=== PATIENT | female | born 1940 | race Caucasian/White ===

== ENCOUNTER 2020-06-30 11:43 | Outpatient (CLI) | payer MEDICARE, SELFPAY ==
--- NOTE | ~2020-06-30 | MM_ITS ---
EXAMINATION: MM screening raciel BI w daniel HISTORY: Screening mammogram, family history of breast cancer in her sister. TECHNIQUE: Craniocaudal and mediolateral oblique 3-D tomosynthesis images were obtained and synthetic 2-D images were generated. CAD analysis was submitted and interpreted. COMPARISON: 12/23/2018, 10/25/2017, 09/14/2016 BREAST PARENCHYMAL COMPOSITION: There are scattered areas of fibroglandular density. FINDINGS: There is no evidence of suspicious mass, calcification, or architectural distortion to sugg est malignancy in either breast. There has been no suspicious interval change. IMPRESSION: 1. No mammographic evidence of malignancy. 2. Recommend routine screening mammography while the patient remains in good health. BI-RADS Category 1: Negative Reviewed, dictated and finalized at location A. 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 No mammographic evidence of malignancy. 2. Recommend routine screening mammography while the patient remains in good he alth. BI-RADS Category 1: Negative
== END 2020-06-30 11:44 | disposition home or self-care (01) ==
LOC: ANHIMG 11:47
PROVIDERS: PCP Family Medicine Adolescent Medicine; Visit Provider Family Medicine Adolescent Medicine
DX: Z12.31 Encounter for screening mammogram for malignant neoplasm of breast (principal)
CPT/HCPCS: 77063; 77067

== ENCOUNTER → 2020-07-20 14:41 | Outpatient (CLI) | payer MEDICARE, SELFPAY ==
--- NOTE | ~2020-07-20 | XR_ITS ---
EXAMINATION: XR chest 2V DATE: 07/20/2020 15:00 INDICATION: Diaphoresis. TECHNIQUE: Frontal and lateral views of the chest were obtained. COMPARISON: None. FINDINGS: The chest demonstrates clear lungs without pneumonia, pleural effusion, or pneumothorax. Th e heart size is normal. There are surgical clips in the abdomen. IMPRESSION: 1. No acute cardiopulmonary disease. Reviewed, dictated and finalized at location B. 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
== END ==
PROVIDERS: PCP Family Medicine Adolescent Medicine; Visit Provider Physician Assistant
DX: R61 Generalized hyperhidrosis (principal)
CPT/HCPCS: 71046

== ENCOUNTER 2021-05-07 10:23 | Emergency (ER) | payer MEDICARE, SELFPAY ==
--- NOTE | ~2021-05-07 | US_ITS ---
EXAMINATION: US venous doppler [facility] DATE: 05/07/2021 13:59 INDICATION: Left lower limb pain TECHNIQUE: Grayscale ultrasound images without and with compression and Doppler ultrasound images of the left lower extremity veins were obtained. COMPARISON: None. FINDINGS: The visualized portions of left common femoral vein, profunda (deep) femoral vein, femoral vein, popl iteal vein, peroneal veins, posterior tibial veins, gastrocnemius vein and greater saphenous vein out flow are patent. IMPRESSION: 1. No deep venous thrombosis in the left lower limb. Reviewed, dictated and finalized at location A. 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
[2021-05-07 10:38] VITALS: BP 146/65; PULSE 77; RESP 16; TEMP 36.7; O2SAT 99
--- NOTE | 2021-05-07 13:48 | ED.GENADULT ---
HPI - General Adult General Chief complaint: Extremity Injury, Lower Stated complaint: leg pain Time Seen by Provider: 05/07/21 12:48 Source: patient and family Mode of arrival: ambulatory Limitations: no limitations History of Present Illness HPI narrative: Patient presents for evaluation of pressure in the left lower extremity. She is here in the company of her son and they provide me with conflicting statements regarding presenting complaint. Multiple attempts for clarification were made during the course of my evaluation. The seem to agree the patient has had pressure in the left lateral and posterior aspect of left calf since Saturday of last week. She indicates she lives here with her son and her recently . They went to [place] on Saturday of last week. She spent a considerable amount of time in the car prior to time of symptom onset. She states she has some chronic pain in the posterior left knee for a few years. She thought this was 2/2 Renteria's cyst but was told this was not the case. She has tried taking baclofen for her symptoms. It seemed to help last night. She had recurrence of her symptoms this morning so came in for further evaluation. She has noted intermittent swelling for quite some time in left lower leg. No hx of VTE. She does not smoke. No recent surgeries. No chest pain or SOB. Related Data Allergies Allergy/AdvReac Type Severity Reaction Status Date / Time clavulanic acid Allergy Mild Hives Unverified 05/07/21 12:48 Penicillins Allergy Mild Hives Unverified 05/07/21 12:48 amoxicillin Allergy Unknown Hives Verified 05/07/21 12:48 BETALACTAMASEIN Allergy Mild Hives Uncoded 05/07/21 12:48 CLAVULANATEPOT Allergy Mild Hives Uncoded 05/07/21 12:48 POTASSIUM CLAVULANATE Allergy Mild HIVES Uncoded 05/07/21 12:48 Review of Systems Review of Systems: CONSTITUTIONAL: Denies fever, chills, or sweats. EYES: Denies visual changes, redness, or discharge. ENT: Denies rhinorrhea, congestion, sore throat, or otalgia. CARDIOVASCULAR: Denies chest pain, palpitations, or edema. RESPIRATORY: Denies cough or dyspnea. GASTROINTESTINAL: Denies abdominal pain, nausea, vomiting, or diarrhea. GENITOURINARY: Denies dysuria or hematuria. SKIN: Denies rash or itching. MUSCULOSKELETAL: Reports pressure in left lower leg. Reports intermittent swelling in left lower leg NEUROLOGIC: Denies headache, numbness, dizziness, or weakness. PSYCHIATRIC: Denies anxiety or depression. [facility] Past Medical History Medical History Hypertension Hypothyroidism Family History Family History Sibling Carcinoma of colon, Onset Age: 82 Family history of malignant neoplasm of breast in first degree relative, Onset Age: 82 Patient's sister is Father Family history of lung cancer, Onset Age: 62 Patient's father is Mother Family history of coronary artery disease, Onset Age: 87 Patient's mother is Family history of gastrointestinal disorder Other Hypertension Social History Social History (Updated 05/07/21 @ 14:02 by YOSHI Mims, ) Smoking status: Never smoker Alcohol intake: current Substance use: never Living arrangements: with family Gender identity (if verbalized by the patient): Female Sexual Orientation (if Verbalized by the Patient): Straight or Heterosexual Spiritual care concerns: No Exam Narrative: GENERAL: Well-appearing, well-nourished, and in no acute distress. HEAD: Normocephalic, atraumatic. EYES: PERRLA and EOMI. ENT: Nares clear, no rhinorrhea or epistaxis. Mucous membranes moist. Oropharynx without tonsillar hypertrophy exudate or other lesions. Bilateral TMs pearly laureano nonbulging NECK: Supple. No adenopathy or masses. No carotid bruits or JVD CHEST: Clear to auscultation. No respiratory distres
[2021-05-07 14:32] LABS: Basophils Absolute Auto 0.1 K/mm3 (0.0-0.1); Basophils Percent Auto 0.6 % (0.2-1.2); Eosinophils Absolute Auto 0.2 K/mm3 (0-0.3); Eosinophils Percent Auto 2.6 % (0-4.4); Hematocrit 36.9 % (37.0-47.0); Hemoglobin 12.1 g/dL (12.0-15.0); Immature Granulocyte Absolute 0.06 K/mm3 (0.00-0.031); Immature Granulocyte Percent A 0.6 % (0-0.5); Lymphocytes Absolute Auto 2.16 K/mm3 (0.9-3.2); Lymphocytes Percent Auto 23.2 % (18.3-44.2); Mean Corpuscular HGB Conc 32.8 g/dl (32-36); Mean Corpuscular Hemoglobin 29.7 pg (26-34); Mean Corpuscular Volume 90.4 fl (80-100); Mean Platelet Volume 10.8 fl (7.4-10.4); Monocytes Absolute Auto 0.9 K/mm3 (0.1-0.6); Monocytes Percent Auto 9.2 % (2.6-8.5); Neutrophils Percent Auto 63.8 % (45.5-73.1); Platelet Count Result 188 k/mm3 (150-375); Red Blood Count 4.08 M/mm3 (4.2-5.4); White Blood Count 9.3 K/mm3 (4.5-10.0)
[2021-05-07 14:42] LABS: Alanine Aminotransferase 16 U/L (4-35); Albumin Level 3.8 g/dL (3.5-5.1); Alkaline Phosphatase 58 U/L (38-126); Anion Gap 8 mmol/L (8-16); Aspartate Amino Transferase 21 U/L (14-36); Bilirubin,Total 0.2 mg/dL (0.2-1.3); Blood Urea Nitrogen 20 mg/dL (7-17); Calcium 8.7 mg/dL (8.4-10.2); Carbon Dioxide 28 mmol/L (22-30); Chloride 105 mmol/L (98-107); Creatine Kinase 119 U/L (30-135); Estimated CRCL calculation 54 ml/min; Estimated Glomerular Filt Rate > 60; Glucose 102 mg/dL (65-110); Magnesium 1.8 mg/dL (1.6-2.3); Potassium 3.6 mmol/L (3.4-5.0); Sodium 141 mmol/L (137-145)
[2021-05-07 14:45] LABS: INR 1.1; Prothrombin Time 13.6 Seconds (11.1-14.7)
[2021-05-07 14:47] LABS: Partial Thromboplastin Time 26.1 SECONDS (22.3-36.8)
== END 2021-05-07 15:30 | disposition home or self-care (01) ==
PROVIDERS: Emergency Provider Nurse Practitioner; PCP Family Medicine Adolescent Medicine
DX: M62.838 Other muscle spasm (principal); I10 Essential (primary) hypertension; E03.9 Hypothyroidism, unspecified
CPT/HCPCS: 36415; 80053; 82550; 83735; 85025; 85610; 85730; 93971; 99284

== ENCOUNTER 2021-09-20 14:19 | Outpatient (CLI) | payer MEDICARE, SELFPAY ==
--- NOTE | ~2021-09-20 | MM_ITS ---
EXAMINATION: MM screening raciel BI w daniel HISTORY: Screening mammogram TECHNIQUE: Craniocaudal and mediolateral oblique 3-D tomosynthesis images were obtained and synthetic 2-D images were generated. CAD analysis was submitted and interpreted. COMPARISON: 06/30/2020, 12/23/2018, 10/25/2017 bilateral screening mammogram examinations. BREAST PARENCHYMAL COMPOSITION: There are scattered areas of fibroglandular density. FINDINGS: There is no evidence of suspicious mass, calcification, or architectural distortion to sugg est malignancy in either breast. There has been no suspicious interval change. IMPRESSION: 1. No mammographic evidence of malignancy. 2. Recommend routine screening mammography in one year. BI-RADS Category 1: Negative Reviewed, dictated and finalized at location A.
== END 2021-09-20 14:20 | disposition home or self-care (01) ==
PROVIDERS: PCP Family Medicine Adolescent Medicine; Visit Provider Family Medicine Adolescent Medicine
DX: Z12.31 Encounter for screening mammogram for malignant neoplasm of breast (principal)
CPT/HCPCS: 77063; 77067

== ENCOUNTER → 2021-09-21 15:59 | Outpatient (CLI) | payer MEDICARE, SELFPAY ==
--- NOTE | ~2021-09-21 | XR_ITS ---
XR knee LT 3V DATE: 09/21/2021 16:20 INDICATION: Left knee pain TECHNIQUE: Continental and standing AP and lateral views COMPARISON: left knee FINDINGS: There is varus deformity. There is virtual obliteration of medial compartment joint space w ith some eburnation at the apposing medial femoral condyle and medial tibial plateau, in addition to some periarticular spurring. There is periarticular spurring of the patellofemoral joint. There is moderate suprapatellar knee joint effusion. There is enthesopathy at the superior pole of the patella at the quadriceps tendon insertion. No chondrocalcinosis. No radiopaque intra-articular loose body is evident. No fracture, dislocation, periosteal reaction or bone destruction. Osteopenia. Femoral and popliteal artery calcifications. 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
== END ==
PROVIDERS: PCP Family Medicine Adolescent Medicine; Visit Provider Physician Assistant
DX: M17.12 Unilateral primary osteoarthritis, left knee (principal); M25.462 Effusion, left knee; M85.862 Other specified disorders of bone density and structure, left lower leg
CPT/HCPCS: 73562

== ENCOUNTER 2022-03-27 12:30 | Outpatient (RCR) | payer MEDICARE, SELFPAY ==
--- NOTE | 2022-03-01 10:50 | PTOPEVAL1 ---
Evaluation Information Assessment Status Evaluation Diagnosis L TKR Onset 02/07/22 Reported Pain Level Pain Score 0: Self Report Assessment PT Clinical Summary Pt presents s/p L TKR 02/07/22. Pt daughter present for evaluation. Evaluation shows reduced AROM and PROM within appropriate limits for this phase of rehabilitation post procedure. Demo's good quad contraction, however has extensor lag with SLR flexion. Mild swelling noted L>R, gait abnormality w/ pt cont to use RW for long distances and SPC in home. Pt would greatly benefit from physical therapy to address deficits and improve functional independence to meet goals and return to PLOF. Plan of Care Interventions Electrical Stimulation,Hot Pack/Cold Pack,Manual Therapy, AROM, AAROM, PROM, Massage, strengthening, gait and balance training PT Services Indicated Yes Treatment Frequency and 2x /wk x 6 wks Duration These treatments will address the objective and functional deficits as defined above. The patient will be advanced safely and appropriately in order for the patient to progress towards his/her prior level of function. Additional exercises will be introduced and as well as a comprehensive home exercise program upon discharge, if needed, ?to ensure carryover of functional gains achieved in the clinic. This treatment plan has been reviewed and agreement upon by the patient.
--- NOTE | 2022-05-22 11:06 | PCPTNOTE ---
PHYSICAL THERAPY DISCHARGE 05-22-22 Attending Provider: Paul Benson MD Patient:Radha Portillo Date of :1940 Mrs. Portillo has not returned for any further treatments since 03/27/2022, therefore she will be discharged at this time. She received 7 PT sessions from Mar 01 to , for the diagnosis of TKR. She then stopped attending therapy. The goals were not addressed. Thank you for referring this patient to [facility].
== END 2022-05-22 14:10 | disposition home or self-care (01) ==
LOC: ANHPT 12:30
PROVIDERS: PCP Family Medicine Adolescent Medicine
DX: M25.562 Pain in left knee (principal)
CPT/HCPCS: 97014; 97110; 97140; 97161; G0283

== ENCOUNTER 2022-11-28 16:04 | Outpatient (CLI) | payer MEDICARE, SELFPAY ==
--- NOTE | ~2022-11-28 | MM_ITS ---
EXAMINATION: MM screening raciel BI w daniel HISTORY: Screening mammogram TECHNIQUE: Craniocaudal and mediolateral oblique 3-D tomosynthesis images were obtained and synthetic 2-D images were generated. CAD analysis was submitted and interpreted. COMPARISON: 09/20/2021, 06/30/2020, 12/23/2018 bilateral screening mammogram examinations BREAST PARENCHYMAL COMPOSITION: There are scattered areas of fibroglandular density. FINDINGS: There is no evidence of suspicious mass, calcification, or architectural distortion to sugg est malignancy in either breast. There has been no suspicious interval change. IMPRESSION: 1. No mammographic evidence of malignancy. 2. Recommend routine screening mammography in one year. BI-RADS Category 1: Negative Reviewed, dictated and finalized at location A.
== END 2022-11-28 16:05 | disposition home or self-care (01) ==
LOC: ANHIMG 16:06
PROVIDERS: PCP Family Medicine Adolescent Medicine; Visit Provider Family Medicine Adolescent Medicine
DX: Z12.31 Encounter for screening mammogram for malignant neoplasm of breast (principal)
CPT/HCPCS: 77063; 77067

== ENCOUNTER 2023-01-02 09:20 | Outpatient (CLI) | payer MEDICARE, SELFPAY ==
--- NOTE | 2023-01-24 18:07 | WPDSLEEPSTUD ---
Sleep Study Date of Study: 01/02/23 Ordering Provider: Laura Malik, BIOINFORMATICS PROGRAMMER Interpreting Physician: Rita Jauregui MD Sleep Study Type: Polysomnogram Height: 1.68 m Weight: 90.718 kg Body Mass Index: 32.3 Neck Circumference (inches): 13 [place]: 2 Reason for Sleep Study Fatigue, history of MARIA ESTHER intolerant to CPAP years ago, now with labile hypetension, increased fatigue and dyspnea on exertion * 11/22/2010 - split night sleep study, AHI 17.6 treated with CPAP 7 cm water pressure Sleep History Radha Portillo is an 82-year-old female with history of hypertension who was diagnosed with obstructive sleep apnea and wore a CPAP machine for a short period of time years ago, who presents for a sleep study for re-evaluation 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 She occasionally awakens from sleep short of breath. She rarely awakens at night with heartburn, belching or cough. She occasionally snores. She occasionally snores loudly enough that others complain. She occasionally has trouble sleeping when she has a cold. She rarely suddenly wakes up gasping for breath during the night. She frequently has breathing problems at night. She rarely sweats excessively at night. She occasionally notices her heart pounding or beating irregularly during the night. She frequently falls asleep during the day. She never falls asleep while driving. She never experiences loss of muscle tone with strong emotion. She never feels paralyzed on waking or falling asleep. She never experiences vivid dreams upon waking or falling asleep. She does not feel afraid of going to sleep. She occasionally has nightmares. She rarely recalls her dreams. She frequently has thoughts racing through her mind. She occasionally feels sad or depressed. She occasionally feels anxiety or worry about things. She occasionally notices parts of her body jerk. She never kicks during the night. She occasionally feels crawling or aching feelings in her legs. She never feels leg pain at night. She never grinds her teeth during sleep or has morning jaw pain. She occasionally feels bothered by pain during the day and never awakened by pain during the night. She never wakes up feeling stiff in the morning. Frequently wakes up feeling sore and achy in the morning and occasionally with pain in her neck, spine, or joints. Normal bedtime is around midnight on the weekdays and same on the weekends, taking 1-1.5 hours to fall asleep. She typically gets about 3 to 4 hours of sleep per night. Her wake up time is between 5am to 8am on the weekdays and same on the weekends. She typically wakes up around 1 to 3 times per night, awake 1 to 2 hours each during which time she will play a [employer] game and pray. Habits: Never tobacco smoker. Drinks about 2 caffeinated beverages per day. No alcohol or recreational substances. [facility] Past Medical History Medical History Benign hypertension with CKD (chronic kidney disease) stage III Generalized anxiety disorder Glaucoma Hypertension Hypertriglyceridemia Hypothyroidism Idiopathic peripheral neuropathy Obstructive sleep apnea Prediabetes Stage 3a chronic kidney disease (CKD) Surgical History Surgical History History of cholecystectomy History of hysterectomy Family History Family History Sibling Carcinoma of colon, Onset Age: 82 Family history of malignant neoplasm of breast in first degree relative, Onset Age: 82 Patient's sister is Father Family history of lung cancer, Onset Age: 62 Patient's father is Mother Family history of coronary artery disease, Onset Age: 87 Patient's mother is Family history of gastrointestinal disorder Other Hypertension Social History Socia
[2023-01-24 18:13] VITALS: BMI 32.3
== END 2023-01-03 07:46 | disposition home or self-care (01) ==
LOC: ANHCSM 09:20
PROVIDERS: PCP Family Medicine Adolescent Medicine; Visit Provider Nurse Practitioner Adult Health
DX: G47.32 High altitude periodic breathing (principal); G47.33 Obstructive sleep apnea (adult) (pediatric)
CPT/HCPCS: 95810

== ENCOUNTER 2023-01-24 17:28 | Emergency (ER) | payer MEDICARE, SELFPAY ==
--- NOTE | ~2023-01-24 | XR_ITS ---
EXAMINATION: XR chest 2V 01/24/2023 18:21 INDICATION: Shortness of breath and cough PROCEDURE: 2 view chest COMPARISON: 07/20/2020 FINDINGS: There is right basilar atelectasis/scarring. The cardiomediastinal silhouette is within nor mal limits. There are no pleural effusions. There is no pneumothorax suspected. IMPRESSION: 1: Right basilar atelectasis/scarring.. Reviewed, dictated and finalized at location A.
--- NOTE | 2023-01-24 17:30 | ECG_ITS ---
Measurements Intervals [place] Rate: 79 P: -7 SD: 154 QRS: -14 QRSD: 89 T: 29 QT: 386 QTc: 443 Interpretive Statements SINUS RHYTHM LOW QRS VOLTAGE IN PRECORDIAL LEADS BASELINE ARTIFACT- AVR, AVL, AVF BORDERLINE ECG NO PREVIOUS ECG AVAILABLE FOR COMPARISON Electronically Signed On 01-24-2023 20:33:03 CDT by Bruce Duran D.O.
[2023-01-24 17:48] VITALS: BP 124/87; PULSE 101; RESP 16; TEMP 36.9; O2SAT 96
[2023-01-24 18:37] LABS: Basophils Absolute Auto 0.1 K/mm3 (0.0-0.1); Basophils Percent Auto 0.3 % (0.2-1.2); Eosinophils Absolute Auto 0.1 K/mm3 (0-0.3); Eosinophils Percent Auto 0.4 % (0-4.4); Hematocrit 39.9 % (37.0-47.0); Hemoglobin 12.5 g/dL (12.0-15.0); Immature Granulocyte Absolute 0.15 K/mm3 (0.00-0.031); Immature Granulocyte Percent A 0.8 % (0-0.5); Lymphocytes Absolute Auto 2.03 K/mm3 (0.9-3.2); Lymphocytes Percent Auto 11.4 % (18.3-44.2); Mean Corpuscular HGB Conc 31.3 g/dl (32-36); Mean Corpuscular Hemoglobin 28.4 pg (26-34); Mean Corpuscular Volume 90.7 fl (80-100); Monocytes Absolute Auto 1.4 K/mm3 (0.1-0.6); Monocytes Percent Auto 7.9 % (2.6-8.5); Neutrophils Absolute Auto 14.1 K/mm3 (1.3-6.7); Neutrophils Percent Auto 79.2 % (45.5-73.1); Platelet Count Result 274 k/mm3 (150-375); Red Cell Distribution Width 14.3 % (11.5-14.5); White Blood Count 17.8 K/mm3 (4.5-10.0)
[2023-01-24 18:57] LABS: Alanine Aminotransferase 14 U/L (6-35); Alkaline Phosphatase 57 U/L (38-126); Anion Gap 12 mmol/L (8-16); Aspartate Amino Transferase 19 U/L (14-36); Bilirubin,Total 0.7 mg/dL (0.2-1.3); Blood Urea Nitrogen 17 mg/dL (7-17); Calcium 8.9 mg/dL (8.4-10.2); Carbon Dioxide 26 mmol/L (22-30); Chloride 99 mmol/L (98-107); Estimated CRCL calculation 48 ml/min; Estimated Glomerular Filt Rate 60; Glucose 127 mg/dL (65-110); Potassium 4.2 mmol/L (3.4-5.0); Sodium 137 mmol/L (137-145)
--- NOTE | 2023-01-24 19:47 | ED.SOB ---
HPI - SOB/Dyspnea General Chief Complaint: Shortness of Breath/Dyspnea Stated Complaint: fever, SOB, cough Time Seen by Provider: 01/24/23 19:33 History of Present Illness HPI Narrative: Patient is an 82-year-old female with a history of hypertension, MARIA ESTHER presenting with shortness of breath. Patient states that she was treated for bronchitis several months ago. States that she improved for a while but unfortunately has again developed a productive cough with exertional dyspnea. Also complains of some dysuria. Denies chest pain or palpitations. No lightheadedness. States that she is going to a family reunion in several days and wanted to get checked out. Denies headache, numbness or weakness, abdominal pain, vomiting, diarrhea, leg swelling. States that she did have a subjective fever overnight. Related Data Home Medications Medication Instructions Recorded Confirmed losartan 25 mg tablet See Rx Instructions PO DAILY 08/10/21 01/27/23 lidocaine HCl 4 % topical cream 1 applic topical BID PRN Pain 01/29/22 01/27/23 (Pain Relief (lidocaine)) acetaminophen 500 mg tablet 500 mg PO Q6H PRN Pain 09/24/22 01/27/23 brimonidine 0.2 % eye drops 1 drp EACH EYE TID 01/27/23 01/27/23 diphenhydramine HCl 25 mg tablet 25 mg PO HS PRN Sleep 01/27/23 01/27/23 Allergies Allergy/AdvReac Type Severity Reaction Status Date / Time clavulanic acid Allergy Mild Hives Verified 01/27/23 12:32 Penicillins Allergy Mild Hives Verified 01/27/23 12:32 amoxicillin Allergy Unknown Hives Verified 01/27/23 12:32 Review of Systems Review of Systems: All systems reviewed & are unremarkable except as noted in HPI and below PMFSH Past Medical History Medical History (Updated 01/28/23 @ 07:48 by TOÑO Ashton) Chronic kidney disease Dyslipidemia Generalized anxiety disorder Glaucoma Hypertension Hypothyroidism Idiopathic peripheral neuropathy Obstructive sleep apnea Prediabetes Surgical History Surgical History (Updated 01/27/23 @ 14:18 by Phoebe Berg PA-C) History of cholecystectomy History of colonoscopy with polypectomy History of hysterectomy History of left knee replacement Family History Family History Sibling Carcinoma of colon, Onset Age: 82 Family history of malignant neoplasm of breast in first degree relative, Onset Age: 82 Patient's sister is Father Family history of lung cancer, Onset Age: 62 Patient's father is Mother Family history of coronary artery disease, Onset Age: 87 Patient's mother is Family history of gastrointestinal disorder Other Hypertension Social History Social History (Updated 01/27/23 @ 14:18 by Phoebe Berg PA-C) Social History: Surrogate medical decision maker: Willian Portillo, son. Code status: Full code. Smoking status: Never smoker Second hand tobacco smoke exposure: No Alcohol intake: never Substance use: never Substance use type: does not use Lack of Transportation: No Lack of Food: Never True Current Housing: I Have Housing Concerned About Future Housing: No Difficulty Paying Gas/Electric Bills: No Difficulty Paying for Meds: No Currently Unemployed: No Education: High School Diploma/GED Difficulty w/ Childcare or Family Care: No Living arrangements: with family Occupation/Education: retired Spiritual care concerns: No Agree to blood products: Yes Exam Narrative: GENERAL: Well-appearing, well-nourished, and in no acute distress. Pleasant and cooperative HEAD: Normocephalic, atraumatic. EYES: PERRLA and EOMI. ENT: Nares clear, no rhinorrhea or epistaxis. Mucous membranes moist. NECK: Supple. CHEST: Slight crackles in bilateral bases HEART: Regular rate and rhythm ABDOMEN: Soft, nontender, nondistended EXTREMITIES: Normal range of motion. No edema. SKIN: Warm, dry, no rash. NEURO: No focal deficits. A
[2023-01-24 19:52] VITALS: BP 138/74; PULSE 86; RESP 15; O2SAT 98
[2023-01-24] MEDS: LACTATED RINGERS 1,000 ML 999 ML IV CONT (20:11)
[2023-01-24 20:27] LABS: Appearance Urine Cloudy (Clear); Bacteria Urine Rare /hpf; Bilirubin Urine Negative (Negative); Color Urine Yellow (Yellow); Glucose Urine UA Negative (Negative); Ketones Urine Trace mg/dL (Negative); Leukocyte Esterase Ur 3+ LEU/UL (Negative); Magnesium 1.9 mg/dL (1.6-2.3); Nitrate Urine Negative (Negative); Protein Urine Trace mg/dL (Negative); RBC Urine 0-2 /hpf (0-2); Specific Grav Ur 1.016 (1.001-1.035); Squamous Epithelial Cell Urine Few /hpf (Few); WBC Urine >100 /hpf; pH Urine 5.5 (5.0-9.0)
[2023-01-24 20:29] LABS: INR 1.1; Prothrombin Time 14.8 Seconds (11.1-14.7)
[2023-01-24 20:30] LABS: Add Urine Microscopic? YES; Partial Thromboplastin Time 34.1 SECONDS (22.3-36.8)
[2023-01-24 20:40] LABS: NT Pro B Type Natriuretic Pept 367 pg/mL (19.9-100); Troponin I < 0.012 ng/mL (0.000-0.034)
[2023-01-24 20:50] VITALS: BP 124/66; PULSE 68; RESP 15; O2SAT 100
[2023-01-24 20:54] LABS: Influenza A QL RT-PCR Negative (Negative); Influenza B QL RT-PCR Negative (Negative); SARS-CoV-2 RNA PCR Negative (Negative)
[2023-01-24 21:42] VITALS: BP 124/82; PULSE 84; RESP 16; O2SAT 98
== END 2023-01-24 21:43 | disposition home or self-care (01) ==
PROVIDERS: Emergency Provider Emergency Medicine; PCP Family Medicine Adolescent Medicine
DX: N39.0 Urinary tract infection, site not specified (principal); J40 Bronchitis, not specified as acute or chronic; Z20.822 Contact with and (suspected) exposure to COVID-19; I12.9 Hypertensive chronic kidney disease with stage 1 through stage 4 chronic kidney disease, or unspecified chronic kidney disease; N18.31 Chronic kidney disease, stage 3a; R73.03 Prediabetes; E06.9 Thyroiditis, unspecified; E78.1 Pure hyperglyceridemia; G47.33 Obstructive sleep apnea (adult) (pediatric); G60.8 Other hereditary and idiopathic neuropathies; H40.9 Unspecified glaucoma; Z90.49 Acquired absence of other specified parts of digestive tract; Z90.710 Acquired absence of both cervix and uterus; R94.31 Abnormal electrocardiogram [ECG] [EKG]
CPT/HCPCS: 36415; 71046; 80053; 81001; 83735; 83880; 84484; 85025; 85610; 85730; 87086; 87088; 87636; 93005; 96365; 99284; J0696; J7120

== ENCOUNTER 2023-01-27 08:04 | Inpatient (IN) | payer MEDICARE, SELFPAY ==
[2023-01-27] VITALS (21 sets, daily range): BP systolic 105–138; BP diastolic 57–78; PULSE 70–100; RESP 12–22; TEMP 36.4–37.3; O2SAT 90–100; BMI 33.8
--- NOTE | ~2023-01-27 | CT_ITS ---
EXAMINATION: CT guide absc cath placement DATE: 01/28/2023 13:28 INDICATION: Perisigmoid abscess. TECHNIQUE: The procedure including the risks, benefits, and alternatives was discussed with the patie nt. Risks discussed included bleeding and infection. The patient understood the risks and benefits an d agreed to proceed. The patient was confirmed to be receiving appropriate antibiotic coverage. The skin overlying the buttocks was prepped and draped in usual sterile fashion. Anesthetic was administ ered with 1% lidocaine subcutaneously. Moderate sedation was achieved with 1 mg Versed IV and 50 mcg fentanyl IV. An 18 gauge trochar needle was inserted into the perisigmoid abscess with CT guidance. T he needle was exchanged over a wire for 6 Moldovan, 8 Moldovan, and 9 Moldovan dilators and then for an 8.5 Moldovan pigtail catheter. The catheter was stitched to the skin, and a sterile dressing was applied. The mA was adjusted according to patient size. Iterative reconstruction technique was employed. The d ose-length product was 363.82 mGy-cm. There were no immediate complications. FINDINGS: CT images demonstrate the catheter within the perisigmoid abscess. 5 mL fluid was aspirated for testing. IMPRESSION: 1. Successful CT-guided perisigmoid abscess drainage. 2. 5 mL opaque, sood fluid was sent for aerobic and anaerobic cultures. Reviewed, dictated and finalized at location [facility].
--- NOTE | ~2023-01-27 | CT_ITS ---
EXAMINATION: CT abdomen pelvis w con DATE: 01/27/2023 09:23 INDICATION: Periumbilical abdominal pain, nausea and vomiting. TECHNIQUE: Computed tomography (CT) of the abdomen and pelvis was performed with 100 CC Omnipaque 350 intravenous contrast. Automated exposure control and iterative reconstruction technique were employe d. Exam dose: 1116.86 mGy-cm total exam DLP. COMPARISON: None. FINDINGS: The lung bases are clear of infiltrate or consolidation. Heart size is normal. Trace perica rdial fluid. Coronary artery calcification. Small sliding hiatal hernia. Status post cholecystectomy. No hepatic, splenic, pancreatic, adrenal or solid renal space-occupying mass lesion is evident. Parap elvic renal cysts are suggested. No urinary tract calculus or hydroureteronephrosis. The urinary bladder appears unremarkable. Status post hysterectomy. There is atherosclerotic calcification but normal caliber of the abdominal aorta. No intraperitoneal or retroperitoneal or pelvic adenopathy is noted. There are innumerable diverticula of the sigmoid and descending colon, with lesser involvement of the right colon. There is an air-fluid level in a posterior pelvic abscess in the distal sigmoid area, likely a divert icular abscess, measuring up to 6.8 cm AP and 5.2 cm transverse dimension. There is mildly dilated fluid distended jejunum and ileum, likely due to adynamic ileus. No bowel obs truction is evident. No intraperitoneal free air. Multilevel severe degenerative disc disease of the lumbar spine. Diffuse idiopathic skeletal hyperost osis of the thoracic spine IMPRESSION: Diverticular abscess in the distal sigmoid area Diverticulosis of left and right colon Small sliding hiatal hernia Status post hysterectomy Status post cholecystectomy Reviewed, dictated and finalized at [facility]. Reviewed, dictated and finalized at location [facility].
[2023-01-27 08:49] LABS: Basophils Absolute Auto 0.1 K/mm3 (0.0-0.1); Basophils Percent Auto 0.3 % (0.2-1.2); Eosinophils Absolute Auto 0.2 K/mm3 (0-0.3); Hematocrit 37.9 % (37.0-47.0); Hemoglobin 12.2 g/dL (12.0-15.0); Immature Granulocyte Absolute 0.19 K/mm3 (0.00-0.031); Immature Granulocyte Percent A 0.9 % (0-0.5); Lymphocytes Absolute Auto 1.73 K/mm3 (0.9-3.2); Lymphocytes Percent Auto 8.5 % (18.3-44.2); Mean Corpuscular HGB Conc 32.2 g/dl (32-36); Mean Corpuscular Hemoglobin 28.5 pg (26-34); Mean Corpuscular Volume 88.6 fl (80-100); Mean Platelet Volume 10.3 fl (7.4-10.4); Monocytes Absolute Auto 1.2 K/mm3 (0.1-0.6); Monocytes Percent Auto 5.7 % (2.6-8.5); Neutrophils Percent Auto 83.6 % (45.5-73.1); Platelet Count Result 277 k/mm3 (150-375); Red Blood Count 4.28 M/mm3 (4.2-5.4); Red Cell Distribution Width 14.1 % (11.5-14.5); White Blood Count 20.4 K/mm3 (4.5-10.0)
[2023-01-27 09:07] LABS: Alanine Aminotransferase 16 U/L (6-35); Albumin Level 3.7 g/dL (3.5-5.1); Alkaline Phosphatase 64 U/L (38-126); Anion Gap 9 mmol/L (8-16); Aspartate Amino Transferase 19 U/L (14-36); Bilirubin,Total 0.6 mg/dL (0.2-1.3); Blood Urea Nitrogen 13 mg/dL (7-17); Calcium 8.8 mg/dL (8.4-10.2); Carbon Dioxide 24 mmol/L (22-30); Chloride 97 mmol/L (98-107); Estimated CRCL calculation 43 ml/min; Estimated Glomerular Filt Rate 53; Glucose 139 mg/dL (65-110); Lipase 31 U/L (23-300); Potassium 3.9 mmol/L (3.4-5.0); Sodium 130 mmol/L (137-145)
[2023-01-27 09:24] LABS: Appearance Urine Clear (Clear); Bacteria Urine None Seen /hpf; Bilirubin Urine Negative (Negative); Blood Urine Negative (Negative); Color Urine Yellow (Yellow); Glucose Urine UA Negative (Negative); Hyaline Casts Urine Present /lpf; Ketones Urine Negative (Negative); Leukocyte Esterase Ur 2+ LEU/UL (Negative); Nitrate Urine Negative (Negative); Non Pathogenic Casts 0-2; Protein Urine Negative (Negative); RBC Urine 0-2 /hpf (0-2); Specific Grav Ur 1.007 (1.001-1.035); Squamous Epithelial Cell Urine None seen /hpf (Few); Urobilinogen Urine 0.2 mg/dL (<2.0); pH Urine 6.5 (5.0-9.0)
[2023-01-27] MEDS: PANTOPRAZOLE SODIUM IV 40 MG VIAL IV PUSH (09:30)
[2023-01-27] MEDS: ONDANSETRON INJ 4 MG/2 ML VIAL IV PUSH (09:30)
[2023-01-27 10:00] LABS: Add Urine Microscopic? YES
--- NOTE | 2023-01-27 10:16 | ED.ABDPAIN ---
HPI - Abdominal Pain General Chief Complaint: Abdominal Pain Stated Complaint: abd pain Time Seen by Provider: 01/27/23 08:13 History of Present Illness HPI narrative: Patient states that a few days ago she started having nausea and vomiting, described as yellowish stuff, and last night started having pretty bad pain around periumbilical area, she has had history of diverticulitis in the past but this feels much worse. Had been treated with cephalexin and a Z-Trevin for presumed pneumonia recently. Related Data Home Medications Medication Instructions Recorded Confirmed losartan 25 mg tablet See Rx Instructions PO DAILY 08/10/21 09/24/22 lidocaine HCl 4 % topical cream 1 applic topical BID 01/29/22 01/29/22 (Pain Relief (lidocaine)) acetaminophen 500 mg tablet 500 mg PO Q6H PRN 09/24/22 09/24/22 alpha lipoic acid 200 mg capsule 200 mg PO DAILY 09/24/22 09/24/22 baclofen 5 mg tablet 5 mg PO DAILY 09/24/22 09/24/22 calcium carbonate 600 mg-vitamin tablet PO 09/24/22 09/24/22 D3 1,000 unit-vitamin K2 90 mcg tab Allergies Allergy/AdvReac Type Severity Reaction Status Date / Time clavulanic acid Allergy Mild Hives Verified 09/24/22 08:55 Penicillins Allergy Mild Hives Verified 09/24/22 08:55 amoxicillin Allergy Unknown Hives Verified 09/24/22 08:55 Review of Systems Review of Systems: CONST: No fever. HEENT: No sore throat C/V: No chest pain RESP: No cough GI: Reports abdominal pain, nausea, vomiting[, diarrhea] : No dysuria. M/S: No joint pain. SKIN: No rash. NEURO: [No headache or focal numbness or weakness] PSYCH: [No depression] [facility] Past Medical History Medical History Benign hypertension with CKD (chronic kidney disease) stage III Generalized anxiety disorder Glaucoma Hypertension Hypertriglyceridemia Hypothyroidism Idiopathic peripheral neuropathy Obstructive sleep apnea Prediabetes Stage 3a chronic kidney disease (CKD) Surgical History Surgical History History of cholecystectomy History of hysterectomy Family History Family History Sibling Carcinoma of colon, Onset Age: 82 Family history of malignant neoplasm of breast in first degree relative, Onset Age: 82 Patient's sister is Father Family history of lung cancer, Onset Age: 62 Patient's father is Mother Family history of coronary artery disease, Onset Age: 87 Patient's mother is Family history of gastrointestinal disorder Other Hypertension Social History Social History Smoking status: Never smoker Second hand tobacco smoke exposure: No Alcohol intake: never Substance use: never Substance use type: does not use Living arrangements: with family Occupation/Education: retired Gender identity (if verbalized by the patient): Female Sexual Orientation (if Verbalized by the Patient): Straight or Heterosexual Spiritual care concerns: No Agree to blood products: Yes Exam Narrative: EXAMINATION OF ORGAN SYSTEMS/BODY AREAS: Constitutional: Vital signs per nursing GENERAL:[No acute distress, non-toxic appearing.] HEAD: Normal with no signs of head trauma. EYES: EOMI, conjunctiva normal ENT: Hearing grossly intact LUNGS: Nonlabored breathing. HEART: [Regular rate and rhythm] ABD: [Soft], not peritonitic, slightly tender to palpation periumbilical abdomen EXT: Normal range of motion SKIN: [No rashes or lesions.] NEURO: [Alert and oriented x 3. No gross focal sensory or strength deficits.] PSYCH: Normal affect Course Vital Signs Vital signs: Vital Signs Pulse Rate 86 01/27/23 08:15 Respiratory Rate 17 01/27/23 08:15 Temperature 99.2 F 01/27/23 08:26 Pulse Rate 78 01/27/23 08:31 Respiratory Rate 14 01/27/23 09:00 Bl
[2023-01-27] MEDS: CIPROFLOXACIN 400 MG/D5W 200ML 200 ML 200 MG IVPB (10:33)
--- NOTE | 2023-01-27 10:41 | PM.CNGS ---
Assessment and Plan Assessment and plan (1) Colonic diverticular abscess: Code(s): K57.20 - Diverticulitis of large intestine with perforation and abscess without bleeding Status: Acute Assessment and Plan: will need perc drainage by IR in am, admit, IV abx, bowel rest, IVF History of Present Illness Consult details Consult date: 01/27/23 Reason for consult: abdominal pain Requesting physician: Jefe Long MD Narrative: The patient is an 82-year-old female presenting to the emergency department complaining severe diffuse abdominal pain over the last few days. The patient reports she was being treated for bronchitis and started with intractable nausea and vomiting on Saturday. The patient reports that the nausea and vomiting has since resolved, but she continues to have severe crampy abdominal pain mostly located in her lower abdomen. The patient reports that she has had multiple episodes of diverticulitis in the past, however this is much more severe than usual. The patient reports she has never been admitted for her diverticulitis, and usually resolves with 1 week of antibiotics as an outpatient. Workup in the emergency department, including imaging, is significant for diverticulitis with abscess. Review of Systems Review of Systems: All systems reviewed & are unremarkable except as noted in HPI and below PMFSH Past Medical History Medical History Benign hypertension with CKD (chronic kidney disease) stage III Generalized anxiety disorder Glaucoma Hypertension Hypertriglyceridemia Hypothyroidism Idiopathic peripheral neuropathy Obstructive sleep apnea Prediabetes Stage 3a chronic kidney disease (CKD) Surgical History Surgical History History of cholecystectomy History of hysterectomy Family History Family History Sibling Carcinoma of colon, Onset Age: 82 Family history of malignant neoplasm of breast in first degree relative, Onset Age: 82 Patient's sister is Father Family history of lung cancer, Onset Age: 62 Patient's father is Mother Family history of coronary artery disease, Onset Age: 87 Patient's mother is Family history of gastrointestinal disorder Other Hypertension Social History Social History Smoking status: Never smoker Second hand tobacco smoke exposure: No Alcohol intake: never Substance use: never Substance use type: does not use Living arrangements: with family Occupation/Education: retired Gender identity (if verbalized by the patient): Female Sexual Orientation (if Verbalized by the Patient): Straight or Heterosexual Spiritual care concerns: No Agree to blood products: Yes Meds Home Medications and Allergies Home Medications Medication Instructions Recorded Confirmed Type losartan 25 mg tablet See Rx Instructions PO DAILY 08/10/21 09/24/22 History lidocaine HCl 4 % topical cream 1 applic topical BID 01/29/22 01/29/22 History (Pain Relief (lidocaine)) hydrochlorothiazide 25 mg tablet 25 mg PO DAILY #90 tabs 06/18/22 09/24/22 Rx acetaminophen 500 mg tablet 500 mg PO Q6H PRN 09/24/22 09/24/22 History alpha lipoic acid 200 mg capsule 200 mg PO DAILY 09/24/22 09/24/22 History baclofen 5 mg tablet 5 mg PO DAILY 09/24/22 09/24/22 History calcium carbonate 600 mg-vitamin tablet PO 09/24/22 09/24/22 History D3 1,000 unit-vitamin K2 90 mcg tab levothyroxine 50 mcg tablet 50 mcg PO DAILY #90 tabs 09/28/22 Rx alprazolam 0.25 mg tablet 0.25 mg PO DAILY PRN anxiety #30 11/12/22 Rx tabs meclizine 25 mg tablet 25 mg PO QID PRN dizziness #30 tabs 11/28/22 Rx albuterol sulfate 90 mcg/actuation 2 inh inhalation Q4H PRN shortness 01/24/23 Rx aerosol inhaler of breath or whee
[2023-01-27 11:11] LABS: INR 1.1
[2023-01-27 11:12] LABS: Partial Thromboplastin Time 25.1 SECONDS (22.3-36.8)
[2023-01-27] MEDS: metroNIDAZOLE 500 MG/ISO 100ML 500 MG/100 ML BAG 100 MG IVPB ×2 (11:40→17:43)
[2023-01-27] MEDS: LOPERAMIDE HCL 2 MG CAPSULE 4 MG PO (13:07)
[2023-01-27] MEDS: LACTATED RINGERS 1,000 ML 125 ML IV CONT ×2 (13:07→20:08)
--- NOTE | 2023-01-27 14:10 | PM.IMHP ---
H&P: HPI History of Present Illness Date/Time: 01/27/23 13:45 Chief Complaint: Abdominal pain. Narrative: This is a pleasant 82-year-old female with history of diverticulitis, hypertension, hypothyroidism, hysterectomy, cholecystectomy who presented to the emergency department via private vehicle from home for evaluation of abdominal pain. The patient provides the following history. She was recently treated for bronchitis and a couple of days ago she developed nausea and vomiting which she attributed to the antibiotic she was given. This morning she had some discomfort in the abdomen which she thought was due to the vomiting however it became quite severe as the day progressed and it seems to be situated more so in the periumbilical region. She continues to have nausea but the vomiting has ceased. She also reports fever, chills, and sweats. She has been taking Tylenol at home which has not seemed to help. Last bowel movement this morning was soft without blood or mucus. Her symptoms are similar to previous episodes of diverticulitis but much more severe. In the ED: She was afebrile on arrival; remaining vital signs were stable. Labs were significant for a WBC count of 20.4, sodium 130, potassium 3.9, chloride 97, lipase 31, normal LFTs. CT of the abdomen and pelvis showed a diverticular abscess in the distal sigmoid area. She received a dose of ciprofloxacin and metronidazole and she is being admitted in this setting for treatment and surgery consultation. At the time my evaluation she is sitting at the side of the bed in a chair and her pain is tolerable, rated 3/10. Review of Systems Review of Systems: Twelve systems were reviewed and are negative except for as per HPI. [facility] Past Medical History Medical History (Updated 01/27/23 @ 14:21 by Phoebe Berg PA-C) Chronic kidney disease Dyslipidemia Generalized anxiety disorder Glaucoma Hypertension Hypothyroidism Idiopathic peripheral neuropathy Obstructive sleep apnea Prediabetes Surgical History Surgical History (Updated 01/27/23 @ 14:18 by Phoebe Berg PA-C) History of cholecystectomy History of colonoscopy with polypectomy History of hysterectomy History of left knee replacement Family History Family History Sibling Carcinoma of colon, Onset Age: 82 Family history of malignant neoplasm of breast in first degree relative, Onset Age: 82 Patient's sister is Father Family history of lung cancer, Onset Age: 62 Patient's father is Mother Family history of coronary artery disease, Onset Age: 87 Patient's mother is Family history of gastrointestinal disorder Other Hypertension Social History Social History (Updated 01/27/23 @ 14:18 by Phoebe Berg PA-C) Social History: Surrogate medical decision maker: Willian Portillo, son. Code status: Full code. Smoking status: Never smoker Second hand tobacco smoke exposure: No Alcohol intake: never Substance use: never Substance use type: does not use Lack of Transportation: No Lack of Food: Never True Current Housing: I Have Housing Concerned About Future Housing: No Difficulty Paying Gas/Electric Bills: No Difficulty Paying for Meds: No Currently Unemployed: No Education: High School Diploma/GED Difficulty w/ Childcare or Family Care: No Living arrangements: with family Occupation/Education: retired Spiritual care concerns: No Agree to blood products: Yes Meds Home Medications and Allergies Home Medications Medication Instructions Recorded Confirmed Type losartan 25 mg tablet See Rx Instructions PO DAILY 08/10/21 01/27/23 History lidocaine HCl 4 % topical cream 1 applic topical BID PRN Pain 01/29/22 01/27/23 History (Pain Relief (lidocaine)) hydrochlorothiazide 25 mg tablet 25 mg PO DAILY #90 tabs 06/18/22 01/27/23 Rx acetaminophen
[2023-01-27] MEDS: BRIMONIDINE TARTRATE 0.2% OP SOLN 5 ML BTL 1 DROP EACH EYE ×2 (16:43→20:08)
[2023-01-28] VITALS (15 sets, daily range): BP systolic 114–140; BP diastolic 54–89; PULSE 64–118; RESP 16–21; TEMP 36.1–37.2; O2SAT 90–98
[2023-01-28] MEDS: metroNIDAZOLE 500 MG/ISO 100ML 500 MG/100 ML BAG 100 MG IVPB ×5 (00:43→23:53)
[2023-01-28] MEDS: LEVOTHYROXINE SODIUM INJ 100 MCG/5 ML VIAL 25 MCG IV PUSH (05:19)
[2023-01-28] MEDS: LACTATED RINGERS 1,000 ML 125 ML IV CONT ×2 (05:30→18:06)
[2023-01-28 06:01] LABS: Hematocrit 35.9 % (37.0-47.0); Hemoglobin 11.2 g/dL (12.0-15.0); Mean Corpuscular HGB Conc 31.2 g/dl (32-36); Mean Corpuscular Hemoglobin 27.9 pg (26-34); Mean Corpuscular Volume 89.5 fl (80-100); Mean Platelet Volume 10.1 fl (7.4-10.4); Platelet Count Result 237 k/mm3 (150-375); Red Blood Count 4.01 M/mm3 (4.2-5.4); Red Cell Distribution Width 14.1 % (11.5-14.5); White Blood Count 20.4 K/mm3 (4.5-10.0)
[2023-01-28 06:08] LABS: Anion Gap 6 mmol/L (8-16); Blood Urea Nitrogen 11 mg/dL (7-17); Calcium 8.4 mg/dL (8.4-10.2); Carbon Dioxide 29 mmol/L (22-30); Chloride 100 mmol/L (98-107); Estimated CRCL calculation 48 ml/min; Estimated Glomerular Filt Rate 60; Glucose 113 mg/dL (65-110); Magnesium 1.9 mg/dL (1.6-2.3); Potassium 3.8 mmol/L (3.4-5.0); Sodium 135 mmol/L (137-145)
[2023-01-28] MEDS: BRIMONIDINE TARTRATE 0.2% OP SOLN 5 ML BTL 1 DROP EACH EYE ×2 (11:05→17:57)
[2023-01-28] MEDS: PANTOPRAZOLE SODIUM IV 40 MG VIAL IV PUSH (11:05)
--- NOTE | 2023-01-28 11:15 | PM.IMPN ---
Progress Note: A&P Assessment and Plan (1) Colonic diverticular abscess: Code(s): K57.20 - Diverticulitis of large intestine with perforation and abscess without bleeding Status: Acute Assessment and Plan: Presented to the ED with complaints of abdominal pain CT abd/pel showed diverticular abscess in the distal sigmoid area Continue Levaquin and flagyl IV fluids NPO for now Perc drain ordered Manage and trend drainage Trend labs WBC current 20.4 General surgery consulted (2) Dehydration: Code(s): E86.0 - Dehydration Status: Acute Assessment and Plan: BUN/Cr stable Continue IV fluids LR at 125ml/hr Trend labs Trend urine output Catheter present draining clear yellow urine adjust therapy as indicated (3) Hyponatremia: Code(s): E87.1 - Hypo-osmolality and hyponatremia Status: Acute Assessment and Plan: Presented with Na 130 Currently 135 Continue to trend labs Stable and resolved (4) Hypertension: Qualifiers: Hypertension type: primary hypertension Qualified Code(s): I10 - Essential (primary) hypertension Code(s): I10 - Essential (primary) hypertension Status: Chronic Assessment and Plan: Current BP is 140/79 Continue home medications Trend BP Adjust therapy as indicated Hydralazine with parameters (5) Hypothyroidism: Qualifiers: Hypothyroidism type: acquired Qualified Code(s): E03.9 - Hypothyroidism, unspecified Code(s): E03.9 - Hypothyroidism, unspecified Status: Chronic Assessment and Plan: TSH 1.900 Continue levothyroxine, converted to IV Stable for now Plan UA with culture ordered Voiding trial ordered Time Spent With Patient Time: 39 minutes Time with patient: Greater than 35 minutes Subjective Date/time seen: 01/28/23 1115 Interval history: 01/28/231114 Patient is doing ok. She is complaining of some urgency types of feeling. She stated that she feels that she really has to urinate. She is requesting a UA with cultures. She is denying any chest pain, shortness of breath, nausea, vomiting, diarrhea, constipation, weakness, or fatigue. Her son Lance was present in the room, and her other son was on the phone, and premission was given to talk to her in front of them. Concern about the abscess bursting, and not getting the drain in a good amount of time. It was also stated that the patient is having some problems with this same thing in the past. Concern about when she should follow up was discussed. Currently patient is waiting roughly 7 days prior to reaching out for help. She stated that most of the time this is due to the discomfort coming on but resolving in a reasonable amount of time. She did state that is she has a fever that she will seek out help from a physician who usually gives her a shot and it corrects the problem. Currently she is waiting drain placement. 01/27/23? 13:45 This is a pleasant 82-year-old female with history of diverticulitis, hypertension, hypothyroidism, hysterectomy, cholecystectomy who presented to the emergency department via private vehicle from home for evaluation of abdominal pain. The patient provides the following history. She was recently treated for bronchitis and a couple of days ago she developed nausea and vomiting which she attributed to the antibiotic she was given. This morning she? had some discomfort in the abdomen which she thought was due to the vomiting however it became quite severe as the day progressed and it seems to be situated more so in the periumbilical region.? She continues to have nausea but the vomiting has ceased.? She also reports fever, chills, and sweats. She has been taking Tylenol at home which has not seemed to help.? Last bowel movement this morning was soft without blood or mucus. Her symptoms are simila
--- NOTE | 2023-01-28 11:15 | P.PNIM_ITS ---
Progress Note: A&P Assessment and Plan (1) Colonic diverticular abscess: Code(s): K57.20 - Diverticulitis of large intestine with perforation and abscess without bleeding Status: Acute Assessment and Plan: * Presented to the ED with complaints of abdominal pain * CT abd/pel showed diverticular abscess in the distal sigmoid area * Continue Levaquin and flagyl * IV fluids * NPO for now * Perc drain ordered * Manage and trend drainage * Trend labs * WBC current 20.4 * General surgery consulted (2) Dehydration: Code(s): E86.0 - Dehydration Status: Acute Assessment and Plan: * BUN/Cr stable * Continue IV fluids LR at 125ml/hr * Trend labs * Trend urine output * Catheter present draining clear yellow urine * adjust therapy as indicated (3) Hyponatremia: Code(s): E87.1 - Hypo-osmolality and hyponatremia Status: Acute Assessment and Plan: * Presented with Na 130 * Currently 135 * Continue to trend labs * Stable and resolved (4) Hypertension: Qualifiers: Hypertension type: primary hypertension Qualified Code(s): I10 - Essential (primary) hypertension Code(s): I10 - Essential (primary) hypertension Status: Chronic Assessment and Plan: * Current BP is 140/79 * Continue home medications * Trend BP * Adjust therapy as indicated * Hydralazine with parameters (5) Hypothyroidism: Qualifiers: Hypothyroidism type: acquired Qualified Code(s): E03.9 - Hypothyroidism, unspecified Code(s): E03.9 - Hypothyroidism, unspecified Status: Chronic Assessment and Plan: * TSH 1.900 * Continue levothyroxine, converted to IV * Stable for now Plan * UA with culture ordered * Voiding trial ordered Time Spent With Patient Time: 39 minutes Time with patient: Greater than 35 minutes Subjective Date/time seen: 01/28/231114 Interval history: 01/28/231114 Patient is doing ok. She is complaining of some urgency types of feeling. She stated that she feels that she really has to urinate. She is requesting a UA with cultures. She is denying any chest pain, shortness of breath, nausea, vomiting, diarrhea, constipation, weakness, or fatigue. Her son Lance was present in the room, and her other son was on the phone, and premission was given to talk to her in front of them. Concern about the abscess bursting, and not getting the drain in a good amount of time. It was also s tated that the patient is having some problems with this same thing in the past. Concern about when she should follow up was discussed. Currently patient is waiting roughly 7 days prior to reaching out for help. She stated that most of the time this is due to the discomfort coming on but resolving in a reasonable amount of time. She did state that is she has a fever that she will seek out help from a physician who usually gives her a shot and it corrects the problem. Currently she is waiting drain placement. 01/27/23? 13:45 This is a pleasant 82-year-old female with history of diverticulitis, hypertension, hypothyroidism, hysterectomy, cholecystectomy who presented to the emergency department via private vehicle from home for evaluation of abdominal pain. The patient provides the following history. She was recently treated for bronchitis and a couple of days ago she developed
--- NOTE | 2023-01-28 12:16 | WPDMODSED ---
Moderate Sedation Note-Pt Data Patient Data Diagnosis: Perisigmoid abscess. Present Complaint: Perisigmoid abscess. Procedure to be performed/Plan: CT-guided perisigmoid abscess drainage. Allergies Allergy/AdvReac Type Severity Reaction Status Date / Time clavulanic acid Allergy Mild Hives Verified 01/27/23 12:32 Penicillins Allergy Mild Hives Verified 01/27/23 12:32 amoxicillin Allergy Unknown Hives Verified 01/27/23 12:32 Home Medications Medication Instructions Recorded Confirmed Type losartan 25 mg tablet See Rx Instructions PO DAILY 08/10/21 01/27/23 History lidocaine HCl 4 % topical cream 1 applic topical BID PRN Pain 01/29/22 01/27/23 History (Pain Relief (lidocaine)) hydrochlorothiazide 25 mg tablet 25 mg PO DAILY #90 tabs 06/18/22 01/27/23 Rx acetaminophen 500 mg tablet 500 mg PO Q6H PRN Pain 09/24/22 01/27/23 History levothyroxine 50 mcg tablet 50 mcg PO DAILY #90 tabs 09/28/22 01/27/23 Rx alprazolam 0.25 mg tablet 0.25 mg PO DAILY PRN anxiety #30 11/12/22 01/27/23 Rx tabs meclizine 25 mg tablet 25 mg PO QID PRN dizziness #30 tabs 11/28/22 01/27/23 Rx albuterol sulfate 90 mcg/actuation 2 inh inhalation Q4H PRN shortness 01/24/23 01/27/23 Rx aerosol inhaler of breath or wheezing #6.7 grams azithromycin 250 mg tablet See Rx Instructions PO .COMPLEX #6 01/24/23 01/27/23 Rx tabs cephalexin 500 mg capsule 500 mg PO Q12H 7 days #14 caps 01/24/23 01/27/23 Rx brimonidine 0.2 % eye drops 1 drp EACH EYE TID 01/27/23 01/27/23 History diphenhydramine HCl 25 mg tablet 25 mg PO HS PRN Sleep 01/27/23 01/27/23 History Current Medications: Active Medications Acetaminophen (Acetaminophen 325 Mg Tablet) 650 mg PO Q6H PRN PRN Reason: Mild Pain (1-3) or Fever Hydrocodone Bitart/Acetaminophen (Hydrocodone/Acetaminophen (*Crx) 5-325 Mg Tablet) 1 tab PO Q6H PRN PRN Reason: Pain Rated 4-6 Alprazolam (Alprazolam (*Crx) 0.125 Mg Tablet) 0.125 mg PO TID PRN PRN Reason: Anxiety Brimonidine Tartrate (Brimonidine Tartrate 0.2% Op Soln 5 Ml Btl) 1 drop EACH EYE TID [facility] Last Admin: 01/28/23 11:05 Dose: 1 drop Lactated Ringer's (Lr - Lactated Ringers Iv) 1,000 mls @ 125 mls/hr IV CONT .Q8H [facility] Last Admin: 01/28/23 05:30 Dose: 125 mls/hr Levofloxacin/Dextrose (Levaquin 750 Mg/D5w 150 Ml) 750 mg in 150 mls @ 100 mls/hr IVPB Q48H [facility] Metronidazole (Flagyl 500 Mg/Iso Soln 100 Ml) 500 mg in 100 mls @ 100 mls/hr IVPB Q6HR [facility] Last Admin: 01/28/23 05:19 Dose: 100 mls/hr Levothyroxine Sodium (Levothyroxine Sodium Inj 100 Mcg/5 Ml Vial) 25 mcg IV PUSH DAILY@0630 [facility] Last Admin: 01/28/23 05:19 Dose: 25 mcg Morphine Sulfate (Morphine Sulfate (*Crx) 2 Mg/Ml Inj) 2 mg IV PUSH Q4H PRN PRN Reason: Pain Rated 7-10 Pantoprazole Sodium (Pantoprazole Sodium Iv 40 Mg Vial) 40 mg IV PUSH QAM [facility] Last Admin: 01/28/23 11:05 Dose: 40 mg Sedation/Anesthesia: No previous sedation/anesthesia problems (including family history). REPLACED BY [facility] Past Medical History Medical History (Updated 01/28/23 @ 07:48 by TOÑO Ashton) Chronic kidney disease Dyslipidemia Generalized anxiety disorder Glaucoma Hypertension Hypothyroidism Idiopathic peripheral neuropathy Obstructive sleep apnea Prediabetes Surgical History Surgical History (Updated 01/27/23 @ 14:18 by Phoebe Berg PA-C) History of cholecystectomy History of colonoscopy with polypectomy History of hysterectomy History of left knee replacement Family History Family History Sibling Carcinoma of colon, Onset Age: 82 Family history of malignant neoplasm of breast in first degree relative, Onset Age: 82 Patient's sister is Father Family history of lung cancer, Onset Age: 62 Patient's father is Mother Family history of coronary artery disease, Onset Age: 87 Patient's mother is Family history of gastrointestinal disorder Other Hypert
--- NOTE | 2023-01-28 12:17 | PM.PNGS ---
Progress Note: A&P Assessment and Plan (1) Colonic diverticular abscess: Code(s): K57.20 - Diverticulitis of large intestine with perforation and abscess without bleeding Status: Acute Assessment and Plan: bowel rest, IV abx, IVF, perc drainage of pelvic abscess Subjective Subjective Date/Time Seen: 01/28/23 12:17 Interval history: still c/o pelvic pressure, pain Review of Systems Review of Systems: All systems reviewed & are unremarkable except as noted in HPI and below Exam Const: General: cooperative, acute distress mild, ill appearing and uncomfortable Resp: Auscultation: clear to auscultation bilaterally Cardio: Rate: regular rate Rhythm: regular rhythm GI: Inspection: normal to inspection and distended GI Palp: Yes abdominal tenderness, Yes Soft to palpation, Yes Tenderness to palpation present (GI), No Guarding due to palpation present (GI) and No Rigid due to palpation Objective Data Vital Signs Vital Signs: Vital Signs - 24 hr 01/27/23 14:50 01/27/23 19:59 01/27/23 20:00 Temperature 36.6 C 36.8 C Pulse Rate 70 79 79 Respiratory Rate 16 18 18 Blood Pressure 113/58 L 138/65 Pulse Oximetry 97 94 94 Oxygen Delivery Room Air 01/28/23 06:00 01/27/23 15:18 Temperature 37.2 C 36.6 C Pulse Rate 118 H 70 Respiratory Rate 18 16 Blood Pressure 140/79 113/58 L Pulse Oximetry 90 97 Oxygen Delivery Intake/Output Intake/Output: Intake & Output 01/25/23 01/26/23 01/27/23 01/28/23 23:59 23:59 23:59 23:59 Intake Total 1400 1100 Output Total 50 Balance 1400 1050 Meds/Results Medications: Active Medications Generic Name Dose Route Start Last Admin Trade Name Freq PRN Reason Stop Dose Admin Acetaminophen 650 mg 01/27/23 17:42 Acetaminophen 325 Mg Tablet PO Q6H PRN Mild Pain (1-3) or Fever Hydrocodone Bitart/Acetaminophen 1 tab 01/27/23 17:42 Hydrocodone/Acetaminophen (*Crx) 5-325 Mg Tablet PO Q6H PRN Pain Rated 4-6 Alprazolam 0.125 mg 01/28/23 11:48 Alprazolam (*Crx) 0.125 Mg Tablet PO TID PRN Anxiety Brimonidine Tartrate 1 drop 01/27/23 16:00 01/28/23 11:05 Brimonidine Tartrate 0.2% Op Soln 5 Ml Btl EACH EYE 1 drop TID DENITA Administration Hydralazine HCl 10 mg 01/28/23 12:16 Hydralazine Hcl 20 Mg/Ml Vial IV PUSH Q8H PRN Blood Pressure - High Lactated Ringer's 1,000 mls @ 125 mls/hr 01/27/23 10:15 01/28/23 05:30 Lr - Lactated Ringers Iv IV CONT 125 mls/hr .Q8H DENITA Administration Levofloxacin/Dextrose 750 mg in 150 mls @ 100 mls/hr 01/29/23 10:00 Levaquin 750 Mg/D5w 150 Ml IVPB Q48H DENITA Metronidazole 500 mg in 100 mls @ 100 mls/hr 01/27/23 18:00 01/28/23 05:19 Flagyl 500 Mg/Iso Soln 100 Ml IVPB 100 mls/hr Q6HR DENITA Administration Levothyroxine Sodium 25 mcg 01/28/23 06:30 01/28/23 05:19 Levothyroxine Sodium Inj 100 Mcg/5 Ml Vial IV PUSH 25 mcg DAILY@0630 DENITA Administration Morphine Sulfate 2 mg 01/27/23 17:42 Morphine Sulfate (*Crx) 2 Mg/Ml Inj IV PUSH Q4H PRN Pain Rated 7-10 Pantoprazole Sodium 40 mg 01/28/23 09:00 01/28/23 11:05 Pantoprazole Sodium Iv 40 Mg Vial IV PUSH 40 mg QAM DENITA Administration Radiology Results: ITS Impressions Abdomen/Pelvis CT 01/27/23 09:37 IMPRESSION: Diverticular abscess in the distal sigmoid area Diverticulosis of left and right colon Small sliding hiatal hernia Status post hysterectomy Status post cholecystectomy Labs Labs: Laboratory Results - last 24 hr 01/28/23 05:46 WBC 20.4 H RBC 4.01 L Hgb 11.2 L Hct 35.9 L MCV 89.5 MCH 27.9 MCHC 31.2 L RDW 14.1 Plt Count 237 MPV 10.1 Sodium 135 L Potassium 3.8 Chloride 100 Carbon Dioxide 29 Anion Gap 6 L BUN 11 Creatinine 0.90 Estim Creat Clear Calc 48 Estimated GFR 60 Glucose 113 H Calcium 8.4 Magnesium 1.9 TSH (Reflex) 1.900
[2023-01-28] MEDS: ALPRAZolam (*CRX) 0.125 MG TABLET PO ×2 (13:43→21:41)
--- NOTE | 2023-01-28 15:00 | PCCCNOTE ---
On 01/28/23, the student, Tonya Ramos, provided care and completed [facility] documentation on this patient. I have reviewed the student's documentation and agree with the findings.
[2023-01-28 22:20] LABS: Appearance Urine Turbid (Clear); Bacteria Urine 2+ /hpf; Bilirubin Urine Negative (Negative); Blood Urine 3+ (Negative); Color Urine Yellow (Yellow); Glucose Urine UA Negative (Negative); Ketones Urine Negative (Negative); Leukocyte Esterase Ur 3+ LEU/UL (Negative); Need Manual Microscopic Reviewed; Nitrate Urine Negative (Negative); Non Pathogenic Casts 0-2; Protein Urine Trace mg/dL (Negative); RBC Urine 51-100 /hpf (0-2); Specific Grav Ur 1.011 (1.001-1.035); Squamous Epithelial Cell Urine Many /hpf (Few); Urobilinogen Urine 0.2 mg/dL (<2.0); WBC Urine >100 /hpf; pH Urine 5.5 (5.0-9.0)
[2023-01-28 22:21] LABS: Add Urine Microscopic? YES
[2023-01-28] MEDS: HYDROcodone/acetaminophen (*CRX) 5-325 MG TABLET 1 TAB PO (23:54)
[2023-01-29] VITALS (9 sets, daily range): BP systolic 98–148; BP diastolic 48–67; PULSE 61–71; RESP 14–20; TEMP 36.2–36.7; O2SAT 95–100
[2023-01-29] MEDS: LACTATED RINGERS 1,000 ML 125 ML IV CONT (04:01)
[2023-01-29 05:35] LABS: Basophils Absolute Auto 0.1 K/mm3 (0.0-0.1); Basophils Percent Auto 0.7 % (0.2-1.2); Eosinophils Absolute Auto 0.1 K/mm3 (0-0.3); Hematocrit 34.6 % (37.0-47.0); Hemoglobin 10.8 g/dL (12.0-15.0); Immature Granulocyte Absolute 0.23 K/mm3 (0.00-0.031); Immature Granulocyte Percent A 1.9 % (0-0.5); Lymphocytes Absolute Auto 1.75 K/mm3 (0.9-3.2); Lymphocytes Percent Auto 14.2 % (18.3-44.2); Mean Corpuscular HGB Conc 31.2 g/dl (32-36); Mean Corpuscular Hemoglobin 28.1 pg (26-34); Mean Corpuscular Volume 90.1 fl (80-100); Mean Platelet Volume 10.6 fl (7.4-10.4); Monocytes Absolute Auto 1.1 K/mm3 (0.1-0.6); Monocytes Percent Auto 9.1 % (2.6-8.5); Neutrophils Percent Auto 73.1 % (45.5-73.1); Platelet Count Result 238 k/mm3 (150-375); Red Blood Count 3.84 M/mm3 (4.2-5.4); White Blood Count 12.4 K/mm3 (4.5-10.0)
[2023-01-29 05:45] LABS: Alanine Aminotransferase 14 U/L (6-35); Alkaline Phosphatase 50 U/L (38-126); Anion Gap 5 mmol/L (8-16); Aspartate Amino Transferase 20 U/L (14-36); Bilirubin,Total 0.4 mg/dL (0.2-1.3); Blood Urea Nitrogen 11 mg/dL (7-17); Calcium 7.7 mg/dL (8.4-10.2); Carbon Dioxide 30 mmol/L (22-30); Chloride 101 mmol/L (98-107); Estimated CRCL calculation 49 ml/min; Estimated Glomerular Filt Rate 60; Glucose 93 mg/dL (65-110); Magnesium 1.9 mg/dL (1.6-2.3); Potassium 3.7 mmol/L (3.4-5.0); Sodium 136 mmol/L (137-145)
[2023-01-29] MEDS: metroNIDAZOLE 500 MG/ISO 100ML 500 MG/100 ML BAG 100 MG IVPB ×3 (06:10→18:00)
[2023-01-29] MEDS: LEVOTHYROXINE SODIUM INJ 100 MCG/5 ML VIAL 25 MCG IV PUSH (06:27)
--- NOTE | 2023-01-29 08:56 | PM.PNGS ---
Progress Note: A&P Assessment and Plan (1) Colonic diverticular abscess: Code(s): K57.20 - Diverticulitis of large intestine with perforation and abscess without bleeding Status: Acute Assessment and Plan: exam much improved, cont drain, cont IV abx, low fiber diet Subjective Subjective Date/Time Seen: 01/29/23 08:56 Interval history: feels better overall, had aj placed secondary to difficulty voiding Review of Systems Review of Systems: All systems reviewed & are unremarkable except as noted in HPI and below Exam Const: General: cooperative, comfortable and no acute distress Resp: Auscultation: clear to auscultation bilaterally Cardio: Rate: regular rate Rhythm: regular rhythm GI: Inspection: normal to inspection and distended GI Palp: Yes abdominal tenderness, Yes Soft to palpation, Yes Tenderness to palpation present (GI), No Guarding due to palpation present (GI) and No Rigid due to palpation Objective Data Vital Signs Vital Signs: Vital Signs - 24 hr 01/28/23 12:33 01/28/23 13:10 01/28/23 12:48 Temperature Pulse Rate 74 64 67 Respiratory Rate 16 20 18 Blood Pressure 136/89 132/72 138/70 Pulse Oximetry 96 94 96 Oxygen Delivery Room Air Room Air Nasal Cannula Oxygen Flow Rate 3 01/28/23 12:55 01/28/23 13:00 01/28/23 13:05 Temperature Pulse Rate 75 65 65 Respiratory Rate 18 18 21 H Blood Pressure 125/73 130/72 118/67 Pulse Oximetry 95 97 96 Oxygen Delivery Nasal Cannula Nasal Cannula Nasal Cannula Oxygen Flow Rate 3 3 3 01/28/23 13:15 01/28/23 14:17 01/28/23 13:32 Temperature 36.8 C 36.9 C Pulse Rate 65 72 75 Respiratory Rate 21 H 16 16 Blood Pressure 127/69 117/56 L 123/65 Pulse Oximetry 91 93 97 Oxygen Delivery Room Air Oxygen Flow Rate 01/28/23 13:47 01/28/23 15:17 01/28/23 16:28 Temperature 36.8 C 36.7 C 36.6 C Pulse Rate 71 72 70 Respiratory Rate 16 18 18 Blood Pressure 121/54 L 123/64 124/64 Pulse Oximetry 95 97 98 Oxygen Delivery Oxygen Flow Rate 01/28/23 18:29 01/28/23 11:05 01/28/23 22:40 Temperature 36.6 C 36.1 C L Pulse Rate 72 72 Respiratory Rate 16 16 Blood Pressure 120/64 114/54 L Pulse Oximetry 98 93 Oxygen Delivery Room Air Oxygen Flow Rate 01/29/23 00:21 01/29/23 04:45 01/29/23 08:10 Temperature 36.7 C 36.6 C 36.7 C Pulse Rate 71 61 68 Respiratory Rate 20 18 16 Blood Pressure 141/63 H 112/49 L 148/67 H Pulse Oximetry 98 97 100 Oxygen Delivery Oxygen Flow Rate 01/29/23 08:48 Temperature Pulse Rate Respiratory Rate Blood Pressure Pulse Oximetry 99 Oxygen Delivery Room Air Oxygen Flow Rate Intake/Output Intake/Output: Intake & Output 01/26/23 01/27/23 01/28/23 01/29/23 23:59 23:59 23:59 23:59 Intake Total 1400 2880 1400 Output Total 1100 980 Balance 1400 1780 420 Meds/Results Medications: Active Medications Generic Name Dose Route Start Last Admin Trade Name Freq PRN Reason Stop Dose Admin Acetaminophen 650 mg 01/27/23 17:42 Acetaminophen 325 Mg Tablet PO Q6H PRN Mild Pain (1-3) or Fever Hydrocodone Bitart/Acetaminophen 1 tab 01/27/23 17:42 01/28/23 23:54 Hydrocodone/Acetaminophen (*Crx) 5-325 Mg Tablet PO 1 tab Q6H PRN Administration Pain Rated 4-6 Alprazolam 0.125 mg 01/28/23 11:48 01/28/23 21:41 Alprazolam (*Crx) 0.125 Mg Tablet PO 0.125 mg TID PRN Administration Anxiety Brimonidine Tartrate 1 drop 01/27/23 16:00 01/28/23 17:57 Brimonidine Tartrate 0.2% Op Soln 5 Ml Btl EACH EYE 1 drop TID DENITA Administration Hydralazine HCl 10 mg 01/28/23 12:16 Hydralazine Hcl 20 Mg/Ml Vial IV PUSH Q8H PRN Blood Pressure - High Lactated Ringer's 1,000 mls @ 125 mls/hr 01/27/23 10:15 01/29/23 04:01 Lr - Lactated Ringers Iv IV CONT 125 mls/hr .Q8H DENITA Administration Levofloxacin/Dextrose 750 mg in 150 mls @ 100 mls/hr 01/29/23 10:00 Levaquin 750 Mg/D5w 150 Ml IVPB
[2023-01-29] MEDS: PANTOPRAZOLE SODIUM IV 40 MG VIAL IV PUSH (10:08)
[2023-01-29] MEDS: BRIMONIDINE TARTRATE 0.2% OP SOLN 5 ML BTL 1 DROP EACH EYE ×2 (10:09→18:00)
[2023-01-29] MEDS: levoFLOXacin 750 MG/D5W 150 ML 750 MG/150 ML BAG 100 MG IVPB (10:15)
--- NOTE | 2023-01-29 10:51 | PM.IMPN ---
Progress Note: A&P Assessment and Plan (1) Hyponatremia: Code(s): E87.1 - Hypo-osmolality and hyponatremia Status: Acute (2) Dehydration: Code(s): E86.0 - Dehydration Status: Acute (3) Leukocytosis: Code(s): D72.829 - Elevated white blood cell count, unspecified Status: Acute (4) Colonic diverticular abscess: Code(s): K57.20 - Diverticulitis of large intestine with perforation and abscess without bleeding Status: Acute Plan 82-year-old female with history of diverticulitis, hypertension, hypothyroidism, hysterectomy, cholecystectomy who presented to the emergency department from home for evaluation of abdominal pain. ?CT of the abdomen and pelvis showed a diverticular abscess in the distal sigmoid area.Surgery was consulted. S/p CT-guided perisigmoid abscess drainage on 01/28/23. 1)Acute Diverticular Abscess: S/p CT-guided perisigmoid abscess drainage on 01/28/23 C/w Levofloxacin+Flagyl Monitor WBC count Surgery following Tolerating Low Fibre Diet 2)Hyponatremia: Improved 3)UTI: c/w Levofloxacin Await Urine culture Difficult aj insertion yesterday 4)HTN: Resume home antihypertensives 5)Hypothyroidism:c/w Levothyroxine 6)DVT ppx: Add Hep SQ 7)Code:Full 8)Dispo:pending improvement Time Spent With Patient Time with patient: 25 - 35 minutes Subjective Date/time seen: 01/29/23 10:51 Interval history: c/o suprapubic pain feels like she has to urinate Review of Systems Review of Systems: All systems reviewed & are unremarkable except as noted in HPI and below Exam Narrative: General: well-nourished, well-appearing Neuro: awake, alert and oriented x4, speech clear, no focal neuro deficits noted HEENMT: normocephalic, atraumatic, EOMI, sclerae anicteric, moist oral mucosa Respiratory: Clear to auscultation bilaterally without crackles, rhonchi or wheezes, nonlabored breathing Cardio: regular rate, regular rhythm with S1-S2 Abdomen: nondistended, normoactive bowel sounds, soft, ?suprapubic discomfort : catheter is present draining clear yellow urine. Extremities: no edema, erythema, or tenderness to palpation, DP pulses 2+ bilaterally Skin: no rashes or lesions, warm and dry Psych: appropriate mood and affect, judgment and insight intact Objective Data Vital Signs Vital Signs: Vital Signs - 24 hr 01/28/23 12:33 01/28/23 13:10 01/28/23 12:48 Temperature Pulse Rate 74 64 67 Respiratory Rate 16 20 18 Blood Pressure 136/89 132/72 138/70 Pulse Oximetry 96 94 96 Oxygen Delivery Room Air Room Air Nasal Cannula Oxygen Flow Rate 3 01/28/23 12:55 01/28/23 13:00 01/28/23 13:05 Temperature Pulse Rate 75 65 65 Respiratory Rate 18 18 21 H Blood Pressure 125/73 130/72 118/67 Pulse Oximetry 95 97 96 Oxygen Delivery Nasal Cannula Nasal Cannula Nasal Cannula Oxygen Flow Rate 3 3 3 01/28/23 13:15 01/28/23 14:17 01/28/23 13:32 Temperature 98.3 F 98.4 F Pulse Rate 65 72 75 Respiratory Rate 21 H 16 16 Blood Pressure 127/69 117/56 L 123/65 Pulse Oximetry 91 93 97 Oxygen Delivery Room Air Oxygen Flow Rate 01/28/23 13:47 01/28/23 15:17 01/28/23 16:28 Temperature 98.3 F 98.1 F 98 F Pulse Rate 71 72 70 Respiratory Rate 16 18 18 Blood Pressure 121/54 L 123/64 124/64 Pulse Oximetry 95 97 98 Oxygen Delivery Oxygen Flow Rate 01/28/23 18:29 01/28/23 11:05 01/28/23 22:40 Temperature 98 F 97.0 F L Pulse Rate 72 72 Respiratory Rate 16 16 Blood Pressure 120/64 114/54 L Pulse Oximetry 98 93 Oxygen Delivery Room Air Oxygen Flow Rate 01/29/23 00:21 01/29/23 04:45 01/29/23 08:10 Temperature 98.1 F 97.9 F 98.0 F Pulse Rate 71 61 68 Respiratory Rate 20 18 16 Blood Pressure 141/63 H 112/49 L 148/67 H Pulse Oximetry 98 97 100 Oxygen Delivery Oxygen Flow Rate 01/29/23 08:48 Temperature Pulse Rate Respiratory Rate Blood Pressure Pulse Oximetry 99 Oxygen Delivery Room Air Oxygen Flow R
[2023-01-29] MEDS: hydroCHLOROthiazide 25 MG TABLET PO (12:55)
[2023-01-29] MEDS: HEPARIN SODIUM 5,000 UNITS/ML VIAL 5000 UNITS SUB-Q ×2 (12:56→20:31)
[2023-01-29] MEDS: LOSARTAN POTASSIUM 25 MG TABLET 75 MG PO (12:56)
[2023-01-29] MEDS: ALPRAZolam (*CRX) 0.25 MG TABLET PO (18:51)
[2023-01-29] MEDS: ACETAMINOPHEN 325 MG TABLET 650 MG PO (18:51)
[2023-01-29] MEDS: diphenhydrAMINE HCl CAP 25 MG CAPSULE PO (22:04)
[2023-01-30] MEDS: metroNIDAZOLE 500 MG/ISO 100ML 500 MG/100 ML BAG 100 MG IVPB ×5 (00:12→23:15)
[2023-01-30 00:35] VITALS: BP 147/73; PULSE 64; RESP 18; TEMP 36.1; O2SAT 96
[2023-01-30] MEDS: ALPRAZolam (*CRX) 0.125 MG TABLET PO ×2 (03:25→21:43)
[2023-01-30 03:56] LABS: Basophils Absolute Auto 0.1 K/mm3 (0.0-0.1); Basophils Percent Auto 0.6 % (0.2-1.2); Eosinophils Absolute Auto 0.2 K/mm3 (0-0.3); Hematocrit 35.3 % (37.0-47.0); Hemoglobin 11.2 g/dL (12.0-15.0); Immature Granulocyte Absolute 0.39 K/mm3 (0.00-0.031); Immature Granulocyte Percent A 3.5 % (0-0.5); Lymphocytes Absolute Auto 2.13 K/mm3 (0.9-3.2); Lymphocytes Percent Auto 18.9 % (18.3-44.2); Mean Corpuscular HGB Conc 31.7 g/dl (32-36); Mean Corpuscular Hemoglobin 28.3 pg (26-34); Mean Corpuscular Volume 89.1 fl (80-100); Mean Platelet Volume 10.3 fl (7.4-10.4); Monocytes Percent Auto 9.1 % (2.6-8.5); Neutrophils Absolute Auto 7.4 K/mm3 (1.3-6.7); Neutrophils Percent Auto 65.9 % (45.5-73.1); Platelet Count Result 236 k/mm3 (150-375); Red Blood Count 3.96 M/mm3 (4.2-5.4); Red Cell Distribution Width 13.8 % (11.5-14.5); White Blood Count 11.3 K/mm3 (4.5-10.0)
[2023-01-30 04:15] LABS: Alanine Aminotransferase 15 U/L (6-35); Albumin Level 3.1 g/dL (3.5-5.1); Alkaline Phosphatase 55 U/L (38-126); Anion Gap 7 mmol/L (8-16); Aspartate Amino Transferase 24 U/L (14-36); Bilirubin,Total 0.3 mg/dL (0.2-1.3); Blood Urea Nitrogen 10 mg/dL (7-17); Carbon Dioxide 28 mmol/L (22-30); Chloride 102 mmol/L (98-107); Estimated CRCL calculation 55 ml/min; Estimated Glomerular Filt Rate > 60; Glucose 91 mg/dL (65-110); Potassium 3.6 mmol/L (3.4-5.0); Sodium 137 mmol/L (137-145)
[2023-01-30 04:25] VITALS: BP 149/75; PULSE 63; RESP 18; TEMP 36.6; O2SAT 97
[2023-01-30] MEDS: LEVOTHYROXINE SODIUM 50 MCG TABLET PO (06:51)
[2023-01-30] MEDS: HYDROcodone/acetaminophen (*CRX) 5-325 MG TABLET 1 TAB PO ×2 (07:01→13:09)
[2023-01-30 08:00] VITALS: BP 153/69; PULSE 67; RESP 16; TEMP 36.6; O2SAT 97
[2023-01-30] MEDS: LOSARTAN POTASSIUM 25 MG TABLET 75 MG PO (08:29)
[2023-01-30] MEDS: PANTOPRAZOLE SODIUM IV 40 MG VIAL IV PUSH (08:29)
[2023-01-30] MEDS: hydroCHLOROthiazide 25 MG TABLET PO (08:29)
[2023-01-30] MEDS: HEPARIN SODIUM 5,000 UNITS/ML VIAL 5000 UNITS SUB-Q ×2 (08:29→21:40)
[2023-01-30] MEDS: BRIMONIDINE TARTRATE 0.2% OP SOLN 5 ML BTL 1 DROP EACH EYE ×3 (08:30→17:41)
--- NOTE | 2023-01-30 11:24 | PM.PNGS ---
Progress Note: A&P Assessment and Plan (1) Colonic diverticular abscess: Code(s): K57.20 - Diverticulitis of large intestine with perforation and abscess without bleeding Status: Acute Assessment and Plan: continuing to improve. Will ask underwriting service representative to give info on low fiber and high fiber diet. Possibly home tomorrow if bowel function returns. Stimulate bowels with MiraLax. Continue IV abx. Subjective Subjective Date/Time Seen: 01/30/23 11:24 Interval history: Tolerating low fiber diet. No BM yet. Pain improved. Exam Const: General: cooperative, comfortable and no acute distress Resp: Auscultation: clear to auscultation bilaterally Cardio: Rate: regular rate Rhythm: regular rhythm GI: Inspection: normal to inspection and distended GI Palp: Yes Soft to palpation, Yes Tenderness to palpation present (GI) (minimal LLQ), No Guarding due to palpation present (GI) and No Rigid due to palpation Other: Pigtail drain with serosanguinous output Objective Data Vital Signs Vital Signs: Vital Signs - 24 hr 01/29/23 12:00 01/29/23 13:08 01/29/23 16:00 Temperature 36.7 C 36.5 C Pulse Rate 71 71 68 Respiratory Rate 16 14 16 Blood Pressure 98/60 L 110/62 113/48 L Pulse Oximetry 95 95 99 Oxygen Delivery 01/29/23 20:48 01/29/23 21:27 01/30/23 00:35 Temperature 36.2 C L 36.1 C L Pulse Rate 70 64 Respiratory Rate 18 18 Blood Pressure 127/57 L 147/73 H Pulse Oximetry 97 97 96 Oxygen Delivery Room Air 01/30/23 04:25 01/30/23 08:00 Temperature 36.6 C 36.6 C Pulse Rate 63 67 Respiratory Rate 18 16 Blood Pressure 149/75 H 153/69 H Pulse Oximetry 97 97 Oxygen Delivery Intake/Output Intake/Output: Intake & Output 01/27/23 01/28/23 01/29/23 01/30/23 23:59 23:59 23:59 23:59 Intake Total 1400 2880 2900 1040 Output Total 1100 1990 1100 Balance 1400 1780 910 -60 Meds/Results Medications: Active Medications Generic Name Dose Route Start Last Admin Trade Name Freq PRN Reason Stop Dose Admin Acetaminophen 650 mg 01/27/23 17:42 01/29/23 18:51 Acetaminophen 325 Mg Tablet PO 650 mg Q6H PRN Administration Mild Pain (1-3) or Fever Hydrocodone Bitart/Acetaminophen 1 tab 01/27/23 17:42 01/30/23 07:01 Hydrocodone/Acetaminophen (*Crx) 5-325 Mg Tablet PO 1 tab Q6H PRN Administration Pain Rated 4-6 Albuterol 2 puff 01/29/23 10:47 Albuterol Sulfate (*Sp) Aerosol 1 Puff INHALATION Q4H PRN shortness of breath or wheezing Alprazolam 0.125 mg 01/28/23 11:48 01/30/23 03:25 Alprazolam (*Crx) 0.125 Mg Tablet PO 0.125 mg TID PRN Administration Anxiety Alprazolam 0.25 mg 01/29/23 10:47 01/29/23 18:51 Alprazolam (*Crx) 0.25 Mg Tablet PO 0.25 mg DAILY PRN Administration anxiety Brimonidine Tartrate 1 drop 01/27/23 16:00 01/30/23 08:30 Brimonidine Tartrate 0.2% Op Soln 5 Ml Btl EACH EYE 1 drop TID DENITA Administration Diphenhydramine HCl 25 mg 01/29/23 10:47 01/29/23 22:04 Diphenhydramine Hcl Cap 25 Mg Capsule PO 25 mg HS PRN Administration Sleep Heparin Sodium (Porcine) 5,000 units 01/29/23 10:55 01/30/23 08:29 Heparin Sodium 5,000 Units/Ml Vial SUB-Q 5,000 units Q12HR DENITA Administration Hydralazine HCl 10 mg 01/28/23 12:16 Hydralazine Hcl 20 Mg/Ml Vial IV PUSH Q8H PRN Blood Pressure - High Hydrochlorothiazide 25 mg 01/29/23 10:55 01/30/23 08:29 Hydrochlorothiazide 25 Mg Tablet PO 25 mg DAILY DENITA Administration Levofloxacin/Dextrose 750 mg in 150 mls @ 100 mls/hr 01/29/23 10:00 01/29/23 11:45 Levaquin 750 Mg/D5w 150 Ml IVPB Infused Q48H DENITA Infusion Metronidazole 500 mg in 100 mls @ 100 mls/hr 01/27/23 18:00 01/30/23 06:51 Flagyl 500 Mg/Iso Soln 100 Ml IVPB 100 mls/hr Q6HR DENITA Administration Levothyroxine Sodium 50 mcg 01/30/23 06:30 01/30/23 06:51 Levothyroxine Sodium 50 Mcg Tablet PO 50 mcg DAILY@0630 S
--- NOTE | 2023-01-30 11:49 | PM.IMPN ---
Progress Note: A&P Assessment and Plan (1) Hyponatremia: Code(s): E87.1 - Hypo-osmolality and hyponatremia Status: Acute (2) Dehydration: Code(s): E86.0 - Dehydration Status: Acute (3) Leukocytosis: Code(s): D72.829 - Elevated white blood cell count, unspecified Status: Acute (4) Colonic diverticular abscess: Code(s): K57.20 - Diverticulitis of large intestine with perforation and abscess without bleeding Status: Acute Plan 82-year-old female with history of diverticulitis, hypertension, hypothyroidism, hysterectomy, cholecystectomy who presented to the emergency department from home for evaluation of abdominal pain. ?CT of the abdomen and pelvis showed a diverticular abscess in the distal sigmoid area.Surgery was consulted. S/p CT-guided perisigmoid abscess drainage on 01/28/23. 1)Acute Diverticular Abscess: S/p CT-guided perisigmoid abscess drainage on 01/28/23 C/w Levofloxacin+Flagyl improving leucocytosis Surgery following Tolerating Low Fibre Diet Stool softeners added 2)Hyponatremia: resolved 3)UTI: ruled out Difficult aj insertion day before Will try to remove in AM prior to discharge 4)HTN: c/w home antihypertensives 5)Hypothyroidism:c/w Levothyroxine 6)DVT ppx: c/w Hep SQ 7)Code:Full 8)Dispo:anticipate discharge tomorrow if OK wit Gen Surgery Time Spent With Patient Time with patient: 25 - 35 minutes Subjective Date/time seen: 01/30/23 11:49 Interval history: feels better today Still some abdominal discomfort present, but improved as compared to yesterday Review of Systems Review of Systems: All systems reviewed & are unremarkable except as noted in HPI and below Exam Narrative: General: well-nourished, well-appearing Neuro: awake, alert and oriented x4, speech clear, no focal neuro deficits noted HEENMT: normocephalic, atraumatic, EOMI, sclerae anicteric, moist oral mucosa Respiratory: Clear to auscultation bilaterally without crackles, rhonchi or wheezes, nonlabored breathing Cardio: regular rate, regular rhythm with S1-S2 Abdomen: nondistended, normoactive bowel sounds, soft, ?suprapubic discomfort : catheter is present draining clear yellow urine. Extremities: no edema, erythema, or tenderness to palpation, DP pulses 2+ bilaterally Skin: no rashes or lesions, warm and dry Psych: appropriate mood and affect, judgment and insight intact Objective Data Vital Signs Vital Signs: Vital Signs - 24 hr 01/29/23 12:00 01/29/23 13:08 01/29/23 16:00 Temperature 98.1 F 97.7 F Pulse Rate 71 71 68 Respiratory Rate 16 14 16 Blood Pressure 98/60 L 110/62 113/48 L Pulse Oximetry 95 95 99 Oxygen Delivery 01/29/23 20:48 01/29/23 21:27 01/30/23 00:35 Temperature 97.1 F L 97.0 F L Pulse Rate 70 64 Respiratory Rate 18 18 Blood Pressure 127/57 L 147/73 H Pulse Oximetry 97 97 96 Oxygen Delivery Room Air 01/30/23 04:25 01/30/23 08:00 Temperature 97.8 F 97.8 F Pulse Rate 63 67 Respiratory Rate 18 16 Blood Pressure 149/75 H 153/69 H Pulse Oximetry 97 97 Oxygen Delivery Intake/Output Intake/Output: Intake & Output 01/27/23 01/28/23 01/29/23 01/30/23 23:59 23:59 23:59 23:59 Intake Total 1400 2880 2900 1040 Output Total 1100 1990 1100 Balance 1400 1780 910 -60 Meds/Results Medications: Active Medications Generic Name Dose Route Start Last Admin Trade Name Freq PRN Reason Stop Dose Admin Acetaminophen 650 mg 01/27/23 17:42 01/29/23 18:51 Acetaminophen 325 Mg Tablet PO 650 mg Q6H PRN Administration Mild Pain (1-3) or Fever Hydrocodone Bitart/Acetaminophen 1 tab 01/27/23 17:42 01/30/23 07:01 Hydrocodone/Acetaminophen (*Crx) 5-325 Mg Tablet PO 1 tab Q6H PRN Administration Pain Rated 4-6 Albuterol 2 puff 01/29/23 10:47 Albuterol Sulfate (*Sp) Aerosol 1 Puff INHALATION Q4H PRN shortness of breath or wheezing Alprazolam 0.125 mg 01/28/23 11:4
[2023-01-30 12:00] VITALS: BP 106/68; PULSE 75; RESP 16; TEMP 36.3; O2SAT 96
[2023-01-30] MEDS: polyethylene glycoL 3350 17 GM POWD.PACK PO (13:10)
[2023-01-30 16:00] VITALS: BP 112/60; PULSE 69; RESP 16; TEMP 36.3; O2SAT 95
[2023-01-30 20:00] VITALS: BP 131/68; PULSE 59; RESP 18; TEMP 36.4; O2SAT 97
[2023-01-30] MEDS: diphenhydrAMINE HCl CAP 25 MG CAPSULE PO (23:19)
[2023-01-31] MEDS: metroNIDAZOLE 500 MG/ISO 100ML 500 MG/100 ML BAG 100 MG IVPB ×2 (05:17→12:28)
[2023-01-31 06:00] VITALS: BP 141/71; PULSE 73; RESP 18; TEMP 35.9; O2SAT 96
[2023-01-31 06:03] LABS: Hematocrit 36.7 % (37.0-47.0); Hemoglobin 11.7 g/dL (12.0-15.0); Mean Corpuscular HGB Conc 31.9 g/dl (32-36); Mean Corpuscular Hemoglobin 28.5 pg (26-34); Mean Corpuscular Volume 89.3 fl (80-100); Platelet Count Result 267 k/mm3 (150-375); Red Blood Count 4.11 M/mm3 (4.2-5.4); Red Cell Distribution Width 13.8 % (11.5-14.5); White Blood Count 10.7 K/mm3 (4.5-10.0)
[2023-01-31 06:18] LABS: Anion Gap 9 mmol/L (8-16); Blood Urea Nitrogen 10 mg/dL (7-17); Calcium 7.9 mg/dL (8.4-10.2); Carbon Dioxide 26 mmol/L (22-30); Chloride 102 mmol/L (98-107); Estimated CRCL calculation 54 ml/min; Estimated Glomerular Filt Rate > 60; Glucose 95 mg/dL (65-110); Potassium 3.6 mmol/L (3.4-5.0); Sodium 137 mmol/L (137-145)
[2023-01-31] MEDS: LEVOTHYROXINE SODIUM 50 MCG TABLET PO (06:29)
[2023-01-31] MEDS: ALPRAZolam (*CRX) 0.125 MG TABLET PO (06:34)
--- NOTE | 2023-01-31 08:56 | PM.IMPN ---
Progress Note: A&P Assessment and Plan (1) Hyponatremia: Code(s): E87.1 - Hypo-osmolality and hyponatremia Status: Acute (2) Dehydration: Code(s): E86.0 - Dehydration Status: Acute (3) Leukocytosis: Code(s): D72.829 - Elevated white blood cell count, unspecified Status: Acute (4) Colonic diverticular abscess: Code(s): K57.20 - Diverticulitis of large intestine with perforation and abscess without bleeding Status: Acute Plan 82-year-old female with history of diverticulitis, hypertension, hypothyroidism, hysterectomy, cholecystectomy who presented to the emergency department from home for evaluation of abdominal pain. CT of the abdomen and pelvis showed a diverticular abscess in the distal sigmoid area. Surgery was consulted. S/p CT-guided perisigmoid abscess drainage on 01/28/23. 1)Acute Diverticular Abscess: S/p CT-guided perisigmoid abscess drainage on 01/28/23 C/w Levofloxacin+Flagyl started 01/27 Surgery following Tolerating Low Fiber Diet Stool softeners added 2)Hyponatremia: resolved 3)UTI: ruled out pull aj, voiding trial 4)HTN: c/w home antihypertensives 5)Hypothyroidism:c/w Levothyroxine 6)DVT ppx: c/w Hep SQ 7)Code:Full 8)Dispo:anticipate discharge tomorrow if OK with Gen Surgery Subjective Date/time seen: 01/31/23 08:56 Interval history: feels better today Still some abdominal discomfort present, but improved as compared to yesterday Review of Systems Review of Systems: 12 point review of systems was assessed and was negative except as noted in the HPI Exam Narrative: General: well-nourished, well-appearing Neuro: awake, alert and oriented x4, speech clear, no focal neuro deficits noted HEENMT: normocephalic, atraumatic, EOMI, sclerae anicteric, moist oral mucosa Respiratory: Clear to auscultation bilaterally without crackles, rhonchi or wheezes, nonlabored breathing Cardio: regular rate, regular rhythm with S1-S2 Abdomen: nondistended, normoactive bowel sounds, soft, ?suprapubic discomfort : catheter is present draining clear yellow urine. Extremities: no edema, erythema, or tenderness to palpation, DP pulses 2+ bilaterally Skin: no rashes or lesions, warm and dry Psych: appropriate mood and affect, judgment and insight intact Objective Data Vital Signs Vital Signs: Vital Signs - 24 hr 01/30/23 12:00 01/30/23 16:00 01/30/23 20:00 Temperature 97.4 F L 97.3 F L 97.5 F L Pulse Rate 75 69 59 L Respiratory Rate 16 16 18 Blood Pressure 106/68 112/60 131/68 Pulse Oximetry 96 95 97 01/31/23 06:00 Temperature 96.6 F L Pulse Rate 73 Respiratory Rate 18 Blood Pressure 141/71 H Pulse Oximetry 96 Intake/Output Intake/Output: Intake & Output 01/28/23 01/29/23 01/30/23 01/31/23 23:59 23:59 23:59 23:59 Intake Total 2880 2900 2320 800 Output Total 1100 1990 2825 1830 Balance 1780 934 -399 -3028 Meds/Results Medications: Active Medications Generic Name Dose Route Start Last Admin Trade Name Freq PRN Reason Stop Dose Admin Acetaminophen 650 mg 01/27/23 17:42 01/29/23 18:51 Acetaminophen 325 Mg Tablet PO 650 mg Q6H PRN Administration Mild Pain (1-3) or Fever Hydrocodone Bitart/Acetaminophen 1 tab 01/27/23 17:42 01/30/23 13:09 Hydrocodone/Acetaminophen (*Crx) 5-325 Mg Tablet PO 1 tab Q6H PRN Administration Pain Rated 4-6 Albuterol 2 puff 01/29/23 10:47 Albuterol Sulfate (*Sp) Aerosol 1 Puff INHALATION Q4H PRN shortness of breath or wheezing Alprazolam 0.125 mg 01/28/23 11:48 01/31/23 06:34 Alprazolam (*Crx) 0.125 Mg Tablet PO 0.125 mg TID PRN Administration Anxiety Alprazolam 0.25 mg 01/29/23 10:47 01/29/23 18:51 Alprazolam (*Crx) 0.25 Mg Tablet PO 0.25 mg DAILY PRN Administration anxiety Brimonidine Tartrate 1 drop 01/27/23 16:00 01/30/23 17:41 Brimonidine Tartrate 0.2% Op Soln 5 Ml Btl EACH EYE 1 drop TID
--- NOTE | 2023-01-31 09:03 | PM.DS ---
DS: Admitting Diagnosis Discharge Date 01/31/23 Admitting Diagnosis abdominal pain DS: Discharge Diagnosis Discharge Diagnosis (1) Hyponatremia: Code(s): E87.1 - Hypo-osmolality and hyponatremia Status: Acute (2) Dehydration: Code(s): E86.0 - Dehydration Status: Acute (3) Leukocytosis: Code(s): D72.829 - Elevated white blood cell count, unspecified Status: Acute (4) Colonic diverticular abscess: Code(s): K57.20 - Diverticulitis of large intestine with perforation and abscess without bleeding Status: Acute Plan 82-year-old female with history of diverticulitis, hypertension, hypothyroidism, hysterectomy, cholecystectomy who presented to the emergency department from home for evaluation of abdominal pain. CT of the abdomen and pelvis showed a diverticular abscess in the distal sigmoid area. Surgery was consulted. S/p CT-guided perisigmoid abscess drainage on 01/28/23. 1)Acute Diverticular Abscess: S/p CT-guided perisigmoid abscess drainage on 01/28/23 C/w Levofloxacin+Flagyl started 01/27 Surgery following Tolerating Low Fiber Diet Stool softeners added 2)Hyponatremia: resolved 3)UTI: ruled out pull aj, voiding trial 4)HTN: c/w home antihypertensives 5)Hypothyroidism:c/w Levothyroxine 6)DVT ppx: c/w Hep SQ 7)Code:Full 8)Dispo:anticipate discharge tomorrow if OK with Gen Surgery DS: Summary Hospital Course Hospital Course: A 2-year-old female with history of diverticulitis is presenting with abdominal pain and found to have diverticular abscess. She was started on IV antibiotics, this was drained 01/28. Drain remained in place and symptoms improved. Diet was advanced to low-fat and high-fiber. MiraLax was started daily. Time Spent with Patient Time attestation: Total time spent providing and/or coordinating discharge services: Exam Narrative: General: well-nourished, well-appearing Neuro: awake, alert and oriented x4, speech clear, no focal neuro deficits noted HEENMT: normocephalic, atraumatic, EOMI, sclerae anicteric, moist oral mucosa Respiratory: Clear to auscultation bilaterally without crackles, rhonchi or wheezes, nonlabored breathing Cardio: regular rate, regular rhythm with S1-S2 Abdomen: nondistended, normoactive bowel sounds, soft, ?suprapubic discomfort : catheter is present draining clear yellow urine. Extremities: no edema, erythema, or tenderness to palpation, DP pulses 2+ bilaterally Skin: no rashes or lesions, warm and dry Psych: appropriate mood and affect, judgment and insight intact DS: Data Data Completed and Pending Labs on day of discharge: Labs from last 24 hours 01/31/23 05:39 WBC 10.7 H RBC 4.11 L Hgb 11.7 L Hct 36.7 L MCV 89.3 MCH 28.5 MCHC 31.9 L RDW 13.8 Plt Count 267 MPV 11.0 H Sodium 137 Potassium 3.6 Chloride 102 Carbon Dioxide 26 Anion Gap 9 BUN 10 Creatinine 0.80 Estim Creat Clear Calc 54 Estimated GFR > 60 Glucose 95 Calcium 7.9 L Preliminary micro results at discharge 01/28/23 13:21 Anaerobic Culture - Preliminary Abscess Aerobic Culture - Preliminary Pseudomonas aeruginosa Discharge Plan Discharge Attending physician on discharge: Chary Ledesma Consulting providers: Nahomi Andrews Discharging Clinician: Chary Ledesma Patient Disposition: Home, Self-Care Activity: as tolerated Diet: as tolerated Patient Instructions: Antibiotic Form Stand Alone Forms: General Discharge Information Follow-up/Referrals: Nahomi Andrews MD [Physician] - Tim Daniel MD [Primary Care Provider] - Discharge Medications: New polyethylene glycol 3350 [Miralax] 17 gram Powder In Packet 17 g PO QAM 30 Days Qty: 30 0RF levofloxacin 750 mg tablet 750 mg PO DAILY 10 Days Qty: 10 0RF metronidazole 500 mg tablet 500 mg PO Q8H 10 Days Qty: 30 0RF Continued losartan 25 mg tablet See Rx Instruc
[2023-01-31] MEDS: LOSARTAN POTASSIUM 25 MG TABLET 75 MG PO (09:31)
[2023-01-31] MEDS: HEPARIN SODIUM 5,000 UNITS/ML VIAL 5000 UNITS SUB-Q ×2 (09:32→21:37)
[2023-01-31] MEDS: BRIMONIDINE TARTRATE 0.2% OP SOLN 5 ML BTL 1 DROP EACH EYE ×3 (09:32→17:37)
[2023-01-31] MEDS: polyethylene glycoL 3350 17 GM POWD.PACK PO (09:32)
[2023-01-31] MEDS: hydroCHLOROthiazide 25 MG TABLET PO (09:32)
[2023-01-31] MEDS: levoFLOXacin 750 MG/D5W 150 ML 750 MG/150 ML BAG 100 MG IVPB (09:33)
[2023-01-31] MEDS: PANTOPRAZOLE SODIUM IV 40 MG VIAL IV PUSH (09:33)
--- NOTE | 2023-01-31 12:55 | PM.PNGS ---
Progress Note: A&P Assessment and Plan (1) Colonic diverticular abscess: Code(s): K57.20 - Diverticulitis of large intestine with perforation and abscess without bleeding Status: Acute Assessment and Plan: Continue MiraLax daily to prevent constipation. Okay to discharge with drain today if able to urinate. Will have patient follow-up with Dr. Andrews in office to remove drain next week. Continue antibiotics for 7-10 days longer. Subjective Subjective Date/Time Seen: 01/31/23 12:55 Interval history: Tolerating diet. Bowels moving. Syed catheter just removed this morning. Has not urinated yet. Exam Const: General: cooperative, comfortable and no acute distress Resp: Auscultation: clear to auscultation bilaterally Cardio: Rate: regular rate Rhythm: regular rhythm GI: Inspection: normal to inspection and distended GI Palp: Yes Soft to palpation, Yes Tenderness to palpation present (GI) (minimal LLQ), No Guarding due to palpation present (GI) and No Rigid due to palpation Other: Pigtail drain with serosanguinous output Objective Data Vital Signs Vital Signs: Vital Signs - 24 hr 01/30/23 16:00 01/30/23 20:00 01/31/23 06:00 Temperature 36.3 C L 36.4 C L 35.9 C L Pulse Rate 69 59 L 73 Respiratory Rate 16 18 18 Blood Pressure 112/60 131/68 141/71 H Pulse Oximetry 95 97 96 Intake/Output Intake/Output: Intake & Output 01/28/23 01/29/23 01/30/23 01/31/23 23:59 23:59 23:59 23:59 Intake Total 2880 2900 2320 1040 Output Total 1100 1990 2825 1830 Balance 1780 910 -297 -790 Meds/Results Medications: Active Medications Generic Name Dose Route Start Last Admin Trade Name Freq PRN Reason Stop Dose Admin Acetaminophen 650 mg 01/27/23 17:42 01/29/23 18:51 Acetaminophen 325 Mg Tablet PO 650 mg Q6H PRN Administration Mild Pain (1-3) or Fever Hydrocodone Bitart/Acetaminophen 1 tab 01/27/23 17:42 01/30/23 13:09 Hydrocodone/Acetaminophen (*Crx) 5-325 Mg Tablet PO 1 tab Q6H PRN Administration Pain Rated 4-6 Albuterol 2 puff 01/29/23 10:47 Albuterol Sulfate (*Sp) Aerosol 1 Puff INHALATION Q4H PRN shortness of breath or wheezing Alprazolam 0.125 mg 01/28/23 11:48 01/31/23 06:34 Alprazolam (*Crx) 0.125 Mg Tablet PO 0.125 mg TID PRN Administration Anxiety Alprazolam 0.25 mg 01/29/23 10:47 01/29/23 18:51 Alprazolam (*Crx) 0.25 Mg Tablet PO 0.25 mg DAILY PRN Administration anxiety Brimonidine Tartrate 1 drop 01/27/23 16:00 01/31/23 12:33 Brimonidine Tartrate 0.2% Op Soln 5 Ml Btl EACH EYE 1 drop TID DENITA Administration Diphenhydramine HCl 25 mg 01/29/23 10:47 01/30/23 23:19 Diphenhydramine Hcl Cap 25 Mg Capsule PO 25 mg HS PRN Administration Sleep Heparin Sodium (Porcine) 5,000 units 01/29/23 10:55 01/31/23 09:32 Heparin Sodium 5,000 Units/Ml Vial SUB-Q 5,000 units Q12HR DENITA Administration Hydralazine HCl 10 mg 01/28/23 12:16 Hydralazine Hcl 20 Mg/Ml Vial IV PUSH Q8H PRN Blood Pressure - High Hydrochlorothiazide 25 mg 01/29/23 10:55 01/31/23 09:32 Hydrochlorothiazide 25 Mg Tablet PO 25 mg DAILY DENITA Administration Levofloxacin/Dextrose 750 mg in 150 mls @ 100 mls/hr 01/29/23 10:00 01/31/23 09:33 Levaquin 750 Mg/D5w 150 Ml IVPB 100 mls/hr Q48H DENITA Administration Metronidazole 500 mg in 100 mls @ 100 mls/hr 01/27/23 18:00 01/31/23 12:28 Flagyl 500 Mg/Iso Soln 100 Ml IVPB 100 mls/hr Q6HR DENITA Administration Levothyroxine Sodium 50 mcg 01/30/23 06:30 01/31/23 06:29 Levothyroxine Sodium 50 Mcg Tablet PO 50 mcg DAILY@0630 DENITA Administration Lidocaine 1 patch 01/30/23 15:50 01/30/23 17:38 Lidocaine 5% Patch TRANSDERM Not Given DAILY DENITA Losartan Potassium 75 mg 01/29/23 10:55 01/31/23 09:31 Losartan Potassium 25 Mg Tablet PO 75 mg DAILY DENITA Administration Meclizine HCl 25 mg 01/29/23 10:
[2023-01-31 14:00] VITALS: BP 112/58; PULSE 62; RESP 18; TEMP 36.8; O2SAT 99
[2023-01-31 19:29] VITALS: BP 130/57; PULSE 68; RESP 16; TEMP 36.1; O2SAT 98
[2023-01-31] MEDS: metroNIDAZOLE 250 MG TABLET 500 MG PO (21:37)
[2023-01-31] MEDS: diphenhydrAMINE HCl CAP 25 MG CAPSULE PO (21:37)
[2023-02-01] MEDS: ALPRAZolam (*CRX) 0.125 MG TABLET PO (01:35)
[2023-02-01 04:00] VITALS: BP 151/77; PULSE 73; RESP 16; TEMP 36.1; O2SAT 98
[2023-02-01] MEDS: LEVOTHYROXINE SODIUM 50 MCG TABLET PO (05:58)
[2023-02-01] MEDS: metroNIDAZOLE 250 MG TABLET 500 MG PO (05:58)
[2023-02-01 08:00] VITALS: BP 155/83; PULSE 70; RESP 18; TEMP 36.4; O2SAT 100
[2023-02-01] MEDS: levoFLOXacin 750 MG TABLET PO (08:50)
[2023-02-01] MEDS: LOSARTAN POTASSIUM 25 MG TABLET 75 MG PO (08:50)
[2023-02-01] MEDS: HEPARIN SODIUM 5,000 UNITS/ML VIAL 5000 UNITS SUB-Q (08:50)
[2023-02-01] MEDS: hydroCHLOROthiazide 25 MG TABLET PO (08:50)
[2023-02-01] MEDS: PANTOPRAZOLE SODIUM IV 40 MG VIAL IV PUSH (08:50)
[2023-02-01] MEDS: BRIMONIDINE TARTRATE 0.2% OP SOLN 5 ML BTL 1 DROP EACH EYE (08:51)
--- NOTE | 2023-02-01 10:26 | PM.DS ---
DS: Admitting Diagnosis Discharge Date 02/01/23 Admitting Diagnosis abdominal pain DS: Discharge Diagnosis Discharge Diagnosis (1) Hyponatremia: Code(s): E87.1 - Hypo-osmolality and hyponatremia Status: Acute (2) Dehydration: Code(s): E86.0 - Dehydration Status: Acute (3) Leukocytosis: Code(s): D72.829 - Elevated white blood cell count, unspecified Status: Acute (4) Colonic diverticular abscess: Code(s): K57.20 - Diverticulitis of large intestine with perforation and abscess without bleeding Status: Acute DS: Summary Hospital Course Reason for hospitalization: Abdominal pain Hospital Course: 82-year-old female with history of diverticulitis, hypertension, hypothyroidism, hysterectomy, cholecystectomy who presented to the emergency department from home for evaluation of abdominal pain. ?CT of the abdomen and pelvis showed a diverticular abscess in the distal sigmoid area.Surgery was consulted. S/p CT-guided perisigmoid abscess drainage on 01/28/23.Treated with Levofloxacin, flagyl while in hospital, being discharged on same. Advised to follow up with Gen Surgery for removal of drain in a week. Discharged home in stable condition. Status at Discharge Functional status at discharge: independent ambulation Overall status at discharge: patient is progressing back to baseline Time Spent with Patient Time attestation: Total time spent providing and/or coordinating discharge services: Time spent: Greater than 30 minutes Exam Narrative: General: well-nourished, well-appearing Neuro: awake, alert and oriented x4, speech clear, no focal neuro deficits noted HEENT: normocephalic, atraumatic, EOMI, sclerae anicteric, moist oral mucosa Respiratory: Clear to auscultation bilaterally without crackles, rhonchi or wheezes, nonlabored breathing Cardio: regular rate, regular rhythm with S1-S2 Abdomen: nondistended, normoactive bowel sounds, soft, Extremities: no edema, erythema, or tenderness to palpation, DP pulses 2+ bilaterally Skin: no rashes or lesions, warm and dry Psych: appropriate mood and affect, judgment and insight intact DS: Data Data Completed and Pending Labs on day of discharge: Preliminary micro results at discharge 01/28/23 13:21 Anaerobic Culture - Preliminary Abscess Discharge Plan Discharge Attending physician on discharge: Chary Ledesma Consulting providers: Nahomi Andrews Discharging Clinician: Chary Ledesma Patient Disposition: Home, Self-Care Activity: as tolerated Diet: low fiber Wound Care Instructions: other - see discharge instructions Discharge Instructions: Drain care Sponge bathe or shower with drain facing away from shower head Tub baths or soaking underwater until after drain removed Empty and record drain output daily Call office for worsening abdominal pain, fevers or other problems with drain. Patient Instructions: Antibiotic Form Stand Alone Forms: General Discharge Information Follow-up/Referrals: Nahomi Andrews MD [Physician] - Call for Appointment Tim Daniel MD [Primary Care Provider] - Discharge Medications: New levofloxacin 750 mg tablet 750 mg PO DAILY 10 Days Qty: 10 0RF metronidazole 500 mg tablet 500 mg PO Q8H 10 Days Qty: 30 0RF polyethylene glycol 3350 [Miralax] 17 gram Powder In Packet 17 g PO QAM Qty: 100 0RF Continued losartan 25 mg tablet See Rx Instructions PO DAILY Rx Instructions: 1.5 tabs po qd PO daily; lidocaine HCl [Pain Relief (lidocaine)] 4 % cream 1 applic topical BID PRN (Reason: Pain) Rx Instructions: lower back acetaminophen 500 mg tablet 500 mg PO Q6H PRN (Reason: Pain) albuterol sulfate 90 mcg/actuation HFA aerosol inhaler 2 inh inhalation Q4H PRN (Reason: shortness of breath or wheezing) Qty: 6.7 0RF diphenhydramine HCl 25 mg Tablet 25 mg PO HS PRN (Reason: Sleep)
== END 2023-02-01 11:25 | disposition home or self-care (01) | DRG 392 ==
LOC: ANHED 10:32 → ANH2MED 11:32
PROVIDERS: Nurse Practitioner; Physician Assistant; Radiology Diagnostic Radiology; Surgery; Admitting Provider Chiropractor; Emergency Provider Emergency Medicine; PCP Family Medicine Adolescent Medicine; Visit Provider Internal Medicine
PROC: 0D9N30Z Drainage of Sigmoid Colon with Drainage Device, Percutaneous Approach (ICD-10-PCS; principal; 2023-01-28 12:30)
DX: K57.20 Diverticulitis of large intestine with perforation and abscess without bleeding (principal); E87.1 Hypo-osmolality and hyponatremia; D72.829 Elevated white blood cell count, unspecified; E86.0 Dehydration; E03.9 Hypothyroidism, unspecified; I12.9 Hypertensive chronic kidney disease with stage 1 through stage 4 chronic kidney disease, or unspecified chronic kidney disease; N18.31 Chronic kidney disease, stage 3a; G47.33 Obstructive sleep apnea (adult) (pediatric); G60.9 Hereditary and idiopathic neuropathy, unspecified; H40.9 Unspecified glaucoma; F41.1 Generalized anxiety disorder; E78.5 Hyperlipidemia, unspecified; E66.9 Obesity, unspecified; Z96.652 Presence of left artificial knee joint; Z68.34 Body mass index [BMI] 34.0-34.9, adult; Z90.710 Acquired absence of both cervix and uterus; Z90.49 Acquired absence of other specified parts of digestive tract
CPT/HCPCS: 36415; 71046; 74177; 75989; 80048; 80053; 81001; 83690; 83735; 83880; 84443; 84484; 85025; 85027; 85610; 85730; 87070; 87075; 87077; 87086; 87088; 87186; 87205; 87636; 93005; 96374; 96375; 99285; A9270; C1729; C1769; C9113; J0744; J1644; J1836; J1956; J2405; J7040; J7120; Q9967

== ENCOUNTER 2023-04-16 16:19 | Inpatient (IN) | payer MEDICARE, SELFPAY ==
--- NOTE | ~2023-04-16 | CT_ITS ---
EXAMINATION: CT abdomen pelvis w con DATE: 04/16/2023 18:31 INDICATION: Left lower quadrant abdominal pain. TECHNIQUE: Computed tomography (CT) of the abdomen and pelvis was performed with 100 mL Omnipaque 350 intravenous contrast. Automated exposure control and iterative reconstruction technique were employe d. The dose-length product was 1180.90 mGy-cm. COMPARISON: CT abdomen and pelvis 01/27/2023 FINDINGS: The visualized portions of lung bases demonstrate mild atelectasis and mild chronic lung di sease. There is mild bronchiectasis bilaterally. No pleural effusion. The heart size is normal. There are coronary artery calcifications. No pericardial effusion. There is a small sliding hiatal hernia. The liver is normal. There are changes of cholecystectomy. The spleen, pancreas, and adrenal glands are normal. There are cysts in the kidneys including peripelvic cysts measuring up to 17 mm on the le ft. There is a 2 mm stone in right kidney. There are scattered diverticula in the colon. There is wal l thickening of the sigmoid colon. There is fat stranding around the sigmoid colon. There are fistula s from the sigmoid colon to itself and to a loop of small bowel and the wall of the bladder. The appe ndix is not visualized. There is calcified atherosclerosis of the aorta and many of the other arterie s. There are no pathologically enlarged lymph nodes. There is no free intraperitoneal fluid. There is a benign bone island in left ilium. There is severe lumbar spondylosis. Lumbar levoscoliosis is note d. IMPRESSION: 1. Sigmoid diverticulitis with multiple fistulas. No drainable abscess. Reviewed, dictated and finalized at location E.
[2023-04-16 16:29] VITALS: BP 141/69; PULSE 103; RESP 16; TEMP 37.4; O2SAT 92
--- NOTE | 2023-04-16 16:52 | ED.GENADULT ---
HPI - General Adult General Chief complaint: Abdominal Pain Stated complaint: Abdominal pain Time Seen by Provider: 04/16/23 17:54 History of Present Illness HPI narrative: Radha Portillo is an 82 y/o female with PMHx of complicated diverticulitis 2 months ago which required surgical intervention. She presents today with now onff and on left lower quadrant pain, decrease PO intake for the last few days. She reports intermittent nausea/ no vomiting/ Last BM today and was soft /formed Denies fever/chills. Pain reproducible to the left lower quadrant with palpation Related Data Home Medications Medication Instructions Recorded Confirmed losartan 25 mg tablet 50 mg PO DAILY 08/10/21 04/16/23 lidocaine HCl 4 % topical cream 1 applic topical BID PRN Pain 01/29/22 04/16/23 (Pain Relief (lidocaine)) acetaminophen 500 mg tablet 500 mg PO Q6H PRN Pain 09/24/22 04/16/23 brimonidine 0.2 % eye drops 1 drp EACH EYE TID 01/27/23 04/16/23 baclofen 5 mg tablet 5 - 10 mg PO TID PRN muscle spasm 04/16/23 04/16/23 nystatin 100,000 unit/gram topical 1 applic topical PRN PRN redness 04/16/23 04/16/23 powder oxybutynin chloride 10 mg 10 mg PO DAILY PRN Sweating 04/16/23 04/16/23 tablet,extended release 24 hr polyethylene glycol 3350 17 gram 17 g PO QAM PRN Constipation 04/16/23 04/16/23 oral powder packet (Miralax) Allergies Allergy/AdvReac Type Severity Reaction Status Date / Time clavulanic acid Allergy Mild Hives Verified 04/16/23 17:40 Penicillins Allergy Mild Hives Verified 04/16/23 17:40 amoxicillin Allergy Unknown Hives Verified 04/16/23 22:19 [facility] Past Medical History Medical History (Updated 04/17/23 @ 03:11 by Mahi Kim DO) Chronic kidney disease Stage IIIA Dyslipidemia Generalized anxiety disorder Glaucoma Hypertension Hypothyroidism Idiopathic peripheral neuropathy Obstructive sleep apnea She does not use CPAP Prediabetes Surgical History Surgical History History of cholecystectomy History of colonoscopy with polypectomy History of hysterectomy History of left knee replacement (10/2021) Family History Family History Sibling Carcinoma of colon, Onset Age: 82 Family history of malignant neoplasm of breast in first degree relative, Onset Age: 82 Patient's sister is Father Family history of lung cancer, Onset Age: 62 Patient's father is Mother Family history of coronary artery disease, Onset Age: 87 Patient's mother is Family history of gastrointestinal disorder Other Hypertension Social History Social History (Updated 04/17/23 @ 03:10 by Mahi Kim DO) Social History: Surrogate medical decision maker: She would like her 3 children to share the decision making if something were to happen to her. Code status: Full code. (she states that she would not want to be dependent or half to live in a long-term care facility) Smoking status: Never smoker Second hand tobacco smoke exposure: No Alcohol intake: never Substance use: never Substance use type: does not use Lack of Transportation: No Lack of Food: Never True Current Housing: I Have Housing Concerned About Future Housing: No Difficulty Paying Gas/Electric Bills: No Difficulty Paying for Meds: No Currently Unemployed: No Education: High School Diploma/GED Difficulty w/ Childcare or Family Care: No Living arrangements: with family Additional living arrangements comments: She has been since March 2021. She lives her son Willian. She has 2 sons and 1 daughter. 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 Spiritual care concerns: No Agree to blood products: Yes Course Vital Signs Vital si
--- NOTE | 2023-04-16 17:55 | ED.ABDPAIN ---
HPI - Abdominal Pain General Chief Complaint: Abdominal Pain Stated Complaint: Abdominal pain Time Seen by Provider: 04/16/23 17:54 Source: patient and family Mode of arrival: ambulatory Limitations: no limitations History of Present Illness HPI narrative: 82 years old white female presented to the ED with intermittent pain at the left lower quadrant for the last 3 to 4 months. Got worse over the last 24 hours associated with chills, cold feeling, on arrival to the ED started having some trouble urinating like frequency and discomfort. History of diverticulitis December 2022. Related Data Home Medications Medication Instructions Recorded Confirmed losartan 25 mg tablet See Rx Instructions PO DAILY 08/10/21 02/26/23 lidocaine HCl 4 % topical cream 1 applic topical BID PRN Pain 01/29/22 02/26/23 (Pain Relief (lidocaine)) acetaminophen 500 mg tablet 500 mg PO Q6H PRN Pain 09/24/22 02/26/23 brimonidine 0.2 % eye drops 1 drp EACH EYE TID 01/27/23 02/26/23 Allergies Allergy/AdvReac Type Severity Reaction Status Date / Time clavulanic acid Allergy Mild Hives Verified 04/16/23 17:40 Penicillins Allergy Mild Hives Verified 04/16/23 17:40 amoxicillin Allergy Unknown Hives Verified 04/16/23 17:40 Review of Systems Review of Systems: All systems reviewed & are unremarkable except as noted in HPI and below PMFSH Past Medical History Medical History Chronic kidney disease Dyslipidemia Generalized anxiety disorder Glaucoma Hypertension Hypothyroidism Idiopathic peripheral neuropathy Obstructive sleep apnea Prediabetes Surgical History Surgical History History of cholecystectomy History of colonoscopy with polypectomy History of hysterectomy History of left knee replacement (10/2021) Family History Family History Sibling Carcinoma of colon, Onset Age: 82 Family history of malignant neoplasm of breast in first degree relative, Onset Age: 82 Patient's sister is Father Family history of lung cancer, Onset Age: 62 Patient's father is Mother Family history of coronary artery disease, Onset Age: 87 Patient's mother is Family history of gastrointestinal disorder Other Hypertension Social History Social History Social History: Surrogate medical decision maker: Willian Portillo, son. Code status: Full code. Smoking status: Never smoker Second hand tobacco smoke exposure: No Alcohol intake: never Substance use: never Substance use type: does not use Lack of Transportation: No Lack of Food: Never True Current Housing: I Have Housing Concerned About Future Housing: No Difficulty Paying Gas/Electric Bills: No Difficulty Paying for Meds: No Currently Unemployed: No Education: High School Diploma/GED Difficulty w/ Childcare or Family Care: No Living arrangements: with family Occupation/Education: retired Spiritual care concerns: No Agree to blood products: Yes Exam Narrative: General appearance: Well-developed, well-nourished Skin: Normal color Head: Normocephalic, nontraumatic Eyes: Clear conjunctiva ENT: Oropharynx normal, ears normal, nose normal Neck: Supple, nontender Chest and respiratory: Airway patent, no respiratory distress, no accessory muscle use Heart: Regular rate/rhythm Abdomen: Soft, mild tenderness left lower quadrant, no guarding or rebound, no organomegaly, quiet bowel sounds Vascular: Normal peripheral pulses, normal capillary refill. Musculoskeletal: Normal range of motion, nontender back Neurologic: Alert and oriented ?3, [employer] is normal as tested, no gross motor deficit
[2023-04-16 17:59] LABS: Basophils Absolute Auto 0.1 K/mm3 (0.0-0.1); Basophils Percent Auto 0.3 % (0.2-1.2); Eosinophils Percent Auto 0.1 % (0-4.4); Hemoglobin 12.3 g/dL (12.0-15.0); Immature Granulocyte Absolute 0.13 K/mm3 (0.00-0.031); Immature Granulocyte Percent A 0.7 % (0-0.5); Lymphocytes Absolute Auto 1.77 K/mm3 (0.9-3.2); Lymphocytes Percent Auto 9.4 % (18.3-44.2); Mean Corpuscular HGB Conc 32.4 g/dl (32-36); Mean Corpuscular Hemoglobin 29.2 pg (26-34); Mean Corpuscular Volume 90.3 fl (80-100); Mean Platelet Volume 11.5 fl (7.4-10.4); Monocytes Absolute Auto 1.4 K/mm3 (0.1-0.6); Monocytes Percent Auto 7.4 % (2.6-8.5); Neutrophils Absolute Auto 15.5 K/mm3 (1.3-6.7); Neutrophils Percent Auto 82.1 % (45.5-73.1); Platelet Count Result 198 k/mm3 (150-375); Red Blood Count 4.21 M/mm3 (4.2-5.4); Red Cell Distribution Width 14.6 % (11.5-14.5); White Blood Count 18.9 K/mm3 (4.5-10.0)
[2023-04-16] MEDS: SODIUM CHLORIDE 0.9% IV 1,000 ML 999 ML IV CONT (18:10)
[2023-04-16 18:15] LABS: Alanine Aminotransferase 17 U/L (6-35); Alkaline Phosphatase 70 U/L (38-126); Anion Gap 9 mmol/L (8-16); Aspartate Amino Transferase 22 U/L (14-36); Bilirubin,Total 0.8 mg/dL (0.2-1.3); Blood Urea Nitrogen 15 mg/dL (7-17); Calcium 8.6 mg/dL (8.4-10.2); Carbon Dioxide 24 mmol/L (22-30); Chloride 102 mmol/L (98-107); Estimated Glomerular Filt Rate > 60; Glucose 146 mg/dL (65-110); Lipase 31 U/L (23-300); Potassium 3.7 mmol/L (3.4-5.0); Sodium 135 mmol/L (137-145)
[2023-04-16 18:17] LABS: Lactic Acid Reflex 1.2 mmol/L (0.7-2.0)
--- NOTE | 2023-04-16 19:32 | PC.NURSE ---
Assumed care of pt from ROBERTO Quiñonez at this time.
[2023-04-16 20:03] LABS: Appearance Urine Cloudy (Clear); Bacteria Urine 4+ /hpf; Bilirubin Urine Negative (Negative); Blood Urine Negative (Negative); Color Urine Yellow (Yellow); Glucose Urine UA Negative (Negative); Ketones Urine Negative (Negative); Leukocyte Esterase Ur 1+ LEU/UL (Negative); Need Manual Microscopic Reviewed; Nitrate Urine Negative (Negative); Non Pathogenic Casts 0-2; Protein Urine Negative (Negative); RBC Urine 0-2 /hpf (0-2); Squamous Epithelial Cell Urine Many /hpf (Few); Urobilinogen Urine 0.2 mg/dL (<2.0); WBC Urine 21-50 /hpf
[2023-04-16 20:05] LABS: Add Urine Microscopic? YES; Specific Grav Ur 1.047 (1.001-1.035)
--- NOTE | 2023-04-16 20:44 | PM.IMHP ---
H&P: HPI History of Present Illness Date/Time: 04/16/23 20:44 Chief Complaint: Abdominal pain Narrative: 82-year-old female with a past medical history of hypothyroidism, overactive bladder, prior cholecystectomy and prior diverticulitis with abscess who presented to the ER with left lower quadrant abdominal pain. Patient was hospitalized in December for diverticulitis with abscess and had a percutaneous drain placed. She had a follow-up for colonoscopy that demonstrated significant diverticulosis but otherwise per report was normal. She had the colonoscopy done at [facility]. She reports that since her last hospitalization she has had some intermittent episodic left lower abdominal pain. Pain has been recurring for the last 3-4 months. However this time the pain started 24-48 hours ago and has worsened over the last 24 hours. Is associated with chills. When she started having some issues with increased urinary urgency frequency and discomfort she went to urgent care yesterday. UA performed at urgent care was not consistent with infection it was recommended at that time the patient come to the ER for evaluation but she deferred to come until today. She has not measured her temperature at home and has not had any measured fevers here. She denies any nausea or vomiting. She has been had decreased appetite and has been intentionally eating lasts in an effort to lose weight. She reports intermittent constipation and diarrhea which is her baseline. She had a soft stool today prior to coming to the ER. She denies any hematochezia or melena. She denies any chest pain palpitations or shortness of breath. She is alert orient x4 but does have some difficulty with recall of timing of symptoms and severity. She reports the pain or values worse with palpation and asthma moderate in intensity. She reports she did have similar urinary symptoms when she had diverticulitis in the past. Review of Systems Review of Systems: 12 systems were reviewed with pertinent positives and negatives per HPI. Except as documented in the HPI, all other systems were reviewed and are negative. [facility] Past Medical History Medical History (Updated 04/17/23 @ 03:11 by Mahi Kim DO) Chronic kidney disease Stage IIIA Dyslipidemia Generalized anxiety disorder Glaucoma Hypertension Hypothyroidism Idiopathic peripheral neuropathy Obstructive sleep apnea She does not use CPAP Prediabetes Surgical History Surgical History History of cholecystectomy History of colonoscopy with polypectomy History of hysterectomy History of left knee replacement (10/2021) Family History Family History Sibling Carcinoma of colon, Onset Age: 82 Family history of malignant neoplasm of breast in first degree relative, Onset Age: 82 Patient's sister is Father Family history of lung cancer, Onset Age: 62 Patient's father is Mother Family history of coronary artery disease, Onset Age: 87 Patient's mother is Family history of gastrointestinal disorder Other Hypertension Social History Social History (Updated 04/17/23 @ 03:10 by Mahi Kim DO) Social History: Surrogate medical decision maker: She would like her 3 children to share the decision making if something were to happen to her. Code status: Full code. (she states that she would not want to be dependent or half to live in a long-term care facility) Smoking status: Never smoker Second hand tobacco smoke exposure: No Alcohol intake: never Substance use: never Substance use type: does not use Lack of Transportation: No Lack of Food: Never True Current Housing: I Have Housing Concerned About Future Housing: No Difficulty Paying Gas/Electric Bills: No Difficulty Paying for Meds: No Currently Unemployed: No Educatio
[2023-04-16] MEDS: metroNIDAZOLE 500 MG/ISO 100ML 500 MG/100 ML BAG 100 MG IVPB (21:12)
[2023-04-16] MEDS: ONDANSETRON INJ 4 MG/2 ML VIAL IV PUSH (21:36)
[2023-04-16] MEDS: MORPHINE SULFATE (*CRX) 4 MG/ML INJ IV PUSH (21:36)
[2023-04-16 21:42] VITALS: BP 143/83; PULSE 70; RESP 20; O2SAT 98
--- NOTE | 2023-04-16 22:02 | ADMGEN ---
This patient, Radha Portillo, was admitted to Medical Room 243-01. Patient/family oriented to hospital policies and general routines including ID bracelet, bed and alarms, visiting hours, pain management, procedures, bathroom and other care routines, personal items, smoking policy, room service/diet, and visiting hours. Information on how to activate the Rapid Response Team has been discussed. Patient/Family are encouraged to report perceived risks to care and to ask questions if they do not understand what they are told or what they should do.
[2023-04-16] MEDS: SODIUM CHLORIDE 0.9% IV 1,000 ML 125 ML IV CONT (22:40)
[2023-04-16 23:45] VITALS: BP 134/62; PULSE 76; RESP 20; TEMP 36.7; O2SAT 99
[2023-04-16 23:46] VITALS: BMI 33.0
[2023-04-17] MEDS: levoFLOXacin 750 MG/D5W 150 ML 750 MG/150 ML BAG 100 MG IVPB ×2 (00:09→21:26)
[2023-04-17 04:00] VITALS: BMI 33.0
[2023-04-17] MEDS: LEVOTHYROXINE SODIUM 50 MCG TABLET PO (05:06)
[2023-04-17] MEDS: metroNIDAZOLE 500 MG/ISO 100ML 500 MG/100 ML BAG 100 MG IVPB ×3 (05:07→22:58)
[2023-04-17 05:14] LABS: Basophils Absolute Auto 0.1 K/mm3 (0.0-0.1); Basophils Percent Auto 0.4 % (0.2-1.2); Eosinophils Absolute Auto 0.1 K/mm3 (0-0.3); Eosinophils Percent Auto 0.6 % (0-4.4); Hematocrit 35.6 % (37.0-47.0); Hemoglobin 11.3 g/dL (12.0-15.0); Immature Granulocyte Absolute 0.08 K/mm3 (0.00-0.031); Immature Granulocyte Percent A 0.6 % (0-0.5); Lymphocytes Absolute Auto 1.76 K/mm3 (0.9-3.2); Lymphocytes Percent Auto 12.2 % (18.3-44.2); Mean Corpuscular HGB Conc 31.7 g/dl (32-36); Mean Corpuscular Hemoglobin 28.8 pg (26-34); Mean Corpuscular Volume 90.8 fl (80-100); Mean Platelet Volume 11.6 fl (7.4-10.4); Monocytes Absolute Auto 1.4 K/mm3 (0.1-0.6); Monocytes Percent Auto 9.5 % (2.6-8.5); Neutrophils Percent Auto 76.7 % (45.5-73.1); Platelet Count Result 176 k/mm3 (150-375); Red Blood Count 3.92 M/mm3 (4.2-5.4); Red Cell Distribution Width 14.6 % (11.5-14.5); White Blood Count 14.4 K/mm3 (4.5-10.0)
[2023-04-17 06:00] VITALS: BP 125/55; PULSE 72; RESP 16; TEMP 36.9; O2SAT 94
[2023-04-17 06:35] VITALS: BP 125/55; PULSE 72; RESP 16; TEMP 36.9; O2SAT 94
--- NOTE | 2023-04-17 07:34 | PM.IMPN ---
Progress Note: A&P Assessment and Plan (1) Sepsis: Qualifiers: Sepsis acute organ dysfunction status: without acute organ dysfunction Sepsis type: sepsis due to unspecified organism Qualified Code(s): A41.9 - Sepsis, unspecified organism Code(s): A41.9 - Sepsis, unspecified organism Status: Acute Assessment and Plan: 04/17/2023: Patient met sepsis criteria on admission. White blood cell count 18.9, patient was tachycardic at 10:03 a.m., in the setting of sigmoid diverticulitis. CT of the abdomen pelvis with contrast shown sigmoid diverticulitis with multiple fistulas, no drainable abscess. Patient currently on Levaquin and Flagyl Blood cultures were obtained after a dose of Levaquin and Flagyl Blood and urine cultures pending White blood cell count today is 14.4, lactate yesterday was 1.2, lipase 31 (2) Diverticulitis of sigmoid colon: Code(s): K57.32 - Diverticulitis of large intestine without perforation or abscess without bleeding Status: Acute Assessment and Plan: 04/17/2023: CT of the abdomen pelvis with contrast shown sigmoid diverticulitis with multiple fistulas, no drainable abscess. Continue Flagyl and Levaquin WBC down to 14.4 today Patient still complaining of left lower quadrant pain and is tender to palpation I may consider General surgery consult if patient's symptoms worsen (3) Fistula of large intestine: Code(s): K63.2 - Fistula of intestine Status: Acute Assessment and Plan: See above (4) Abnormal urinalysis: Code(s): R82.90 - Unspecified abnormal findings in urine Status: Acute Assessment and Plan: 04/17/2023: UA showing 1+ leukocytes, many squamous epithelial cells, bacteria 4+ Urine culture pending Patient currently on Levaquin and Flagyl Urinary catheter placed today due to urinary retention greater than 500 mL urine. Time Spent With Patient Time with patient: Greater than 35 minutes Subjective Date/time seen: 04/17/23 07:34 Interval history: 04/16/23: This is an 82 year old female who presented to the ER on 04/16/2023 with LLQ abdominal pain with worsening of symptoms 24 hours prior to admission. She reported chills and urinary retention on arrival to ED. Patient also has history of diverticulitis and has had LLQ pain for 3-[address] scan of the abdomen/pelvis shown sigmoid diverticulitis with multiple fistulas. UA was positive for infection. Patient was given IVF, Levaquin, and Flagyl while in the ER. Patient met sepsis criteria on admission as she was tachycardic, and had increased WBC count. Blood and urine cultures were obtained. 04/17/2023: Patient sitting up in chair today and is in good spirits. She still reports left lower quadrant abdominal pain and is tender on exam today. The bedside nurse called me earlier today to stating patient had close to 600 mls of urine in her bladder on the bladder scan, urinary catheter was placed due to retention. Blood in urine culture still pending. Patient is on Levaquin and Flagyl. Labs today show white blood cell count of 14.4, lactic acid was 1.2, lipase 31, sodium 135, potassium 3.7, BUN 15, creatinine 0.8. Patient has had no new events overnight. Review of Systems Review of Systems: 12 systems were reviewed with pertinent positives and negatives per HPI. Except as documented in the HPI, all other systems were reviewed and are negative. Constitutional: Constitutional: Reports as per HPI and Reports no additional constitutional complaints Eyes: Eyes: Reports as per HPI and Reports no additional eye complaints ENT: Reports system reviewed and no additional complaints, except as documented and Reports as per HPI Cardiovascular: Cardiovascular: Reports as per HPI and Reports no additional cardiovascular complaints Respiratory: Respiratory: Reports as per HPI and Reports no additional respiratory complaints Gastrointestinal: Gastrointestinal: Re
[2023-04-17] MEDS: ENOXAPARIN 40 MG/0.4 ML SYRINGE SUB-Q (08:23)
[2023-04-17] MEDS: LOSARTAN POTASSIUM 25 MG TABLET 50 MG PO (08:24)
[2023-04-17] MEDS: hydroCHLOROthiazide 25 MG TABLET PO (08:24)
[2023-04-17] MEDS: BRIMONIDINE TARTRATE 0.2% OP SOLN 5 ML BTL 1 DROP EACH EYE ×3 (08:24→17:11)
[2023-04-17 08:28] VITALS: BP 129/66
[2023-04-17 09:37] VITALS: O2SAT 95
[2023-04-17] MEDS: SODIUM CHLORIDE 0.9% IV 1,000 ML 125 ML IV CONT (13:24)
[2023-04-17] MEDS: ALPRAZolam (*CRX) 0.25 MG TABLET PO (13:33)
[2023-04-17 16:00] VITALS: BP 128/64; PULSE 70; RESP 16; TEMP 36.6; O2SAT 94
[2023-04-17] MEDS: ACETAMINOPHEN 325 MG TABLET 650 MG PO (18:48)
[2023-04-17 22:00] VITALS: BP 111/47; PULSE 63; RESP 18; TEMP 36.6; O2SAT 96
[2023-04-17] MEDS: MELATONIN 3 MG TABLET PO (22:15)
[2023-04-17] MEDS: polyethylene glycoL 3350 17 GM POWD.PACK PO (22:58)
[2023-04-18] MEDS: SODIUM CHLORIDE 0.9% IV 1,000 ML 125 ML IV CONT ×3 (00:29→21:12)
[2023-04-18 05:14] LABS: Basophils Absolute Auto 0.1 K/mm3 (0.0-0.1); Basophils Percent Auto 0.4 % (0.2-1.2); Eosinophils Absolute Auto 0.2 K/mm3 (0-0.3); Eosinophils Percent Auto 1.3 % (0-4.4); Hematocrit 34.8 % (37.0-47.0); Hemoglobin 10.8 g/dL (12.0-15.0); Immature Granulocyte Absolute 0.12 K/mm3 (0.00-0.031); Lymphocytes Absolute Auto 1.24 K/mm3 (0.9-3.2); Lymphocytes Percent Auto 10.6 % (18.3-44.2); Mean Corpuscular Hemoglobin 28.9 pg (26-34); Mean Platelet Volume 11.1 fl (7.4-10.4); Monocytes Absolute Auto 1.1 K/mm3 (0.1-0.6); Monocytes Percent Auto 9.2 % (2.6-8.5); Neutrophils Absolute Auto 9.1 K/mm3 (1.3-6.7); Neutrophils Percent Auto 77.5 % (45.5-73.1); Platelet Count Result 162 k/mm3 (150-375); Red Blood Count 3.74 M/mm3 (4.2-5.4); Red Cell Distribution Width 14.3 % (11.5-14.5); White Blood Count 11.7 K/mm3 (4.5-10.0)
[2023-04-18 05:32] LABS: Alanine Aminotransferase 25 U/L (6-35); Albumin Level 3.2 g/dL (3.5-5.1); Alkaline Phosphatase 60 U/L (38-126); Anion Gap 5 mmol/L (8-16); Aspartate Amino Transferase 27 U/L (14-36); Bilirubin,Total 0.5 mg/dL (0.2-1.3); Blood Urea Nitrogen 11 mg/dL (7-17); Calcium 7.9 mg/dL (8.4-10.2); Carbon Dioxide 26 mmol/L (22-30); Chloride 108 mmol/L (98-107); Estimated CRCL calculation 60 ml/min; Estimated Glomerular Filt Rate > 60; Glucose 96 mg/dL (65-110); Potassium 3.6 mmol/L (3.4-5.0); Sodium 139 mmol/L (137-145)
[2023-04-18] MEDS: LEVOTHYROXINE SODIUM 50 MCG TABLET PO (05:33)
[2023-04-18] MEDS: metroNIDAZOLE 500 MG/ISO 100ML 500 MG/100 ML BAG 100 MG IVPB (05:33)
[2023-04-18 06:00] VITALS: BP 138/64; PULSE 69; RESP 18; TEMP 36.6; O2SAT 96
[2023-04-18] MEDS: ENOXAPARIN 40 MG/0.4 ML SYRINGE SUB-Q (08:58)
[2023-04-18] MEDS: hydroCHLOROthiazide 25 MG TABLET PO (08:58)
[2023-04-18] MEDS: LOSARTAN POTASSIUM 25 MG TABLET 50 MG PO (08:58)
[2023-04-18] MEDS: BRIMONIDINE TARTRATE 0.2% OP SOLN 5 ML BTL 1 DROP EACH EYE ×3 (08:58→17:24)
[2023-04-18] MEDS: MORPHINE SULFATE (*CRX) 4 MG/ML INJ IV PUSH (10:19)
--- NOTE | 2023-04-18 10:33 | P.PNIM_ITS ---
Progress Note: A&P Assessment and Plan (1) Sepsis: Qualifiers: Sepsis acute organ dysfunction status: without acute organ dysfunction Sepsis type: sepsis due to unspecified organism Qualified Code(s): A41.9 - S epsis, unspecified organism Code(s): A41.9 - Sepsis, unspecified organism Status: Acute Assessment and Plan: 04/17/2023: * Patient met sepsis criteria on admission. White blood cell count 18.9, patient was tachycardic at 10:03 a.m., in the setting of sigmoid di verticulitis. * CT of the abdomen pelvis with contrast shown sigmoid diverticulitis with multiple fistulas, no drainable abscess. * Patient currently on Levaquin and Flagyl * Blood cultures were obtained after a dose of Levaquin and Flagyl * Blood and urine cultures pending * White blood cell count today is 14.4, lactate yesterday was 1.2, lipase 31 04/18/23: * WBC 11.7, VSS * patient will start oral Levaquin and Flagyl today to see how she will tolerate it, IV dosing discontinued. * blood cultures no growth * urine culture no growth (2) Diverticulitis of sigmoid colon: Code(s): K57.32 - Diverticulitis of large intestine without perforation or abscess without bleeding Status: Acute Assessment and Plan: 04/17/2023: * CT of the abdomen pelvis with contrast shown sigmoid diverticulitis with multiple fistulas, no drainable abscess. * Continue Flagyl and Levaquin * WBC down to 14.4 today * Patient still complaining of left lower quadrant pain and is tender to palpation * I may consider General surgery consult if patient's symptoms worsen 04/18/23: * WBC 11.7 today, VSS, she remains afebrile * abdomen soft, non-distended, she reports tenderness over bladder, patient has a aj in place due to urinary retention >500 ml yesterday. Will start Ditropan for bladder spasms. Otherwise reported LLQ pain that has been controlled with pain medications. (3) Fistula of large intestine: Code(s): K63.2 - Fistula of intestine Status: Acute Assessment and Plan: See above (4) Abnormal urinalysis: Code(s): R82.90 - Unspecified abnormal findings in urine Status: Acute Assessment and Plan: 04/17/2023: * UA showing 1+ leukocytes, many squamous epithelial cells, bacteria 4+ * Urine culture pending * Patient currently on Levaquin and Flagyl * Urinary catheter placed today due to urinary retention greater than 500 mL urine. 04/18/23: * urine culture showing no growth * Catheter an place due to urinary retention yesterday ml urine, patient tender over bladder and she reports bladder spasms. She will be started on Ditropan for her blader spasms. Time Spent With Patient Time with patient: 25 - 35 minutes Subjective Date/time seen: 04/18/23 10:33 Interval history: 04/16/23: This is an 82 year old female who presented to the ER on 04/16/2023 with LLQ abdominal pain with worsening of symptoms 24 hours prior to admission. She reported chills and urinary retention on arrival to ED. Patient also has history of diverticulitis and has had LLQ pain for 3-[address] scan of the abdomen/pelvis shown sigmoid diverticulitis with multiple fistulas. UA was positive for infection. Patient was given IVF, Levaquin, and Flagyl while in the ER. Patient met sepsis criteria on admission as she was tachycardic, and had increased WBC count. Blood and urine cultures were obtained. 04/17/2023: Patient sitting up in chair today and is in good spirits. She still reports left lower quadrant abdominal pain and is tender on exam today. The beds
--- NOTE | 2023-04-18 10:33 | PM.IMPN ---
Progress Note: A&P Assessment and Plan (1) Sepsis: Qualifiers: Sepsis acute organ dysfunction status: without acute organ dysfunction Sepsis type: sepsis due to unspecified organism Qualified Code(s): A41.9 - Sepsis, unspecified organism Code(s): A41.9 - Sepsis, unspecified organism Status: Acute Assessment and Plan: 04/17/2023: Patient met sepsis criteria on admission. White blood cell count 18.9, patient was tachycardic at 10:03 a.m., in the setting of sigmoid diverticulitis. CT of the abdomen pelvis with contrast shown sigmoid diverticulitis with multiple fistulas, no drainable abscess. Patient currently on Levaquin and Flagyl Blood cultures were obtained after a dose of Levaquin and Flagyl Blood and urine cultures pending White blood cell count today is 14.4, lactate yesterday was 1.2, lipase 31 04/18/23: WBC 11.7, VSS patient will start oral Levaquin and Flagyl today to see how she will tolerate it, IV dosing discontinued. blood cultures no growth urine culture no growth (2) Diverticulitis of sigmoid colon: Code(s): K57.32 - Diverticulitis of large intestine without perforation or abscess without bleeding Status: Acute Assessment and Plan: 04/17/2023: CT of the abdomen pelvis with contrast shown sigmoid diverticulitis with multiple fistulas, no drainable abscess. Continue Flagyl and Levaquin WBC down to 14.4 today Patient still complaining of left lower quadrant pain and is tender to palpation I may consider General surgery consult if patient's symptoms worsen 04/18/23: WBC 11.7 today, VSS, she remains afebrile abdomen soft, non-distended, she reports tenderness over bladder, patient has a aj in place due to urinary retention >500 ml yesterday. Will start Ditropan for bladder spasms. Otherwise reported LLQ pain that has been controlled with pain medications. (3) Fistula of large intestine: Code(s): K63.2 - Fistula of intestine Status: Acute Assessment and Plan: See above (4) Abnormal urinalysis: Code(s): R82.90 - Unspecified abnormal findings in urine Status: Acute Assessment and Plan: 04/17/2023: UA showing 1+ leukocytes, many squamous epithelial cells, bacteria 4+ Urine culture pending Patient currently on Levaquin and Flagyl Urinary catheter placed today due to urinary retention greater than 500 mL urine. 04/18/23: urine culture showing no growth Catheter an place due to urinary retention yesterday ml urine, patient tender over bladder and she reports bladder spasms. She will be started on Ditropan for her blader spasms. Time Spent With Patient Time with patient: 25 - 35 minutes Subjective Date/time seen: 04/18/23 10:33 Interval history: 04/16/23: This is an 82 year old female who presented to the ER on 04/16/2023 with LLQ abdominal pain with worsening of symptoms 24 hours prior to admission. She reported chills and urinary retention on arrival to ED. Patient also has history of diverticulitis and has had LLQ pain for 3-[address] scan of the abdomen/pelvis shown sigmoid diverticulitis with multiple fistulas. UA was positive for infection. Patient was given IVF, Levaquin, and Flagyl while in the ER. Patient met sepsis criteria on admission as she was tachycardic, and had increased WBC count. Blood and urine cultures were obtained. 04/17/2023: Patient sitting up in chair today and is in good spirits. She still reports left lower quadrant abdominal pain and is tender on exam today. The bedside nurse called me earlier today to stating patient had close to 600 mls of urine in her bladder on the bladder scan, urinary catheter was placed due to retention. Blood in urine culture still pending. Patient is on Levaquin and Flagyl. Labs today show white blood cell count of 14.4, lactic acid was 1.2, lipase 31, sodium 135, potassium 3.7, BUN 15, creatinine 0.8. Patient has had no new events overnig
[2023-04-18] MEDS: metroNIDAZOLE 250 MG TABLET 500 MG PO ×2 (13:01→21:09)
[2023-04-18 14:00] VITALS: BP 134/62; PULSE 68; RESP 18; TEMP 36.4; O2SAT 95
[2023-04-18 18:58] LABS: Magnesium 1.8 mg/dL (1.6-2.3)
[2023-04-18 21:01] VITALS: BP 136/64; PULSE 65; RESP 18; TEMP 37.2; O2SAT 96
[2023-04-18] MEDS: oxyBUTYnin CHLORIDE 5 MG TABLET PO (21:09)
[2023-04-18] MEDS: levoFLOXacin 750 MG TABLET PO (21:09)
[2023-04-18] MEDS: ALPRAZolam (*CRX) 0.25 MG TABLET PO (21:09)
[2023-04-18] MEDS: ACETAMINOPHEN 325 MG TABLET 650 MG PO (21:09)
[2023-04-18] MEDS: MELATONIN 3 MG TABLET PO (21:09)
[2023-04-18 22:16] VITALS: O2SAT 96
[2023-04-18 23:34] VITALS: BP 124/67; PULSE 60; RESP 18; TEMP 36.8; O2SAT 97
[2023-04-19 03:50] VITALS: BP 127/64; PULSE 62; RESP 20; TEMP 36.4; O2SAT 99
[2023-04-19] MEDS: metroNIDAZOLE 250 MG TABLET 500 MG PO ×2 (05:15→13:47)
[2023-04-19] MEDS: LEVOTHYROXINE SODIUM 50 MCG TABLET PO (05:15)
[2023-04-19] MEDS: SODIUM CHLORIDE 0.9% IV 1,000 ML 125 ML IV CONT (05:16)
[2023-04-19] MEDS: ACETAMINOPHEN 325 MG TABLET 650 MG PO (05:23)
[2023-04-19 05:40] LABS: Basophils Absolute Auto 0.1 K/mm3 (0.0-0.1); Basophils Percent Auto 0.5 % (0.2-1.2); Eosinophils Absolute Auto 0.2 K/mm3 (0-0.3); Eosinophils Percent Auto 1.4 % (0-4.4); Hematocrit 35.3 % (37.0-47.0); Immature Granulocyte Absolute 0.16 K/mm3 (0.00-0.031); Immature Granulocyte Percent A 1.5 % (0-0.5); Lymphocytes Absolute Auto 1.58 K/mm3 (0.9-3.2); Lymphocytes Percent Auto 14.9 % (18.3-44.2); Mean Corpuscular HGB Conc 31.2 g/dl (32-36); Mean Corpuscular Hemoglobin 28.9 pg (26-34); Mean Corpuscular Volume 92.7 fl (80-100); Mean Platelet Volume 11.2 fl (7.4-10.4); Monocytes Percent Auto 9.3 % (2.6-8.5); Neutrophils Absolute Auto 7.7 K/mm3 (1.3-6.7); Neutrophils Percent Auto 72.4 % (45.5-73.1); Platelet Count Result 185 k/mm3 (150-375); Red Blood Count 3.81 M/mm3 (4.2-5.4); Red Cell Distribution Width 14.2 % (11.5-14.5); White Blood Count 10.6 K/mm3 (4.5-10.0)
[2023-04-19 05:50] LABS: Alanine Aminotransferase 21 U/L (6-35); Albumin Level 3.2 g/dL (3.5-5.1); Alkaline Phosphatase 58 U/L (38-126); Anion Gap 5 mmol/L (8-16); Aspartate Amino Transferase 22 U/L (14-36); Bilirubin,Total 0.4 mg/dL (0.2-1.3); Blood Urea Nitrogen 9 mg/dL (7-17); Calcium 8.1 mg/dL (8.4-10.2); Carbon Dioxide 26 mmol/L (22-30); Chloride 108 mmol/L (98-107); Estimated CRCL calculation 60 ml/min; Estimated Glomerular Filt Rate > 60; Glucose 96 mg/dL (65-110); Potassium 3.6 mmol/L (3.4-5.0); Sodium 139 mmol/L (137-145)
[2023-04-19] MEDS: BRIMONIDINE TARTRATE 0.2% OP SOLN 5 ML BTL 1 DROP EACH EYE ×2 (10:42→13:48)
[2023-04-19] MEDS: ENOXAPARIN 40 MG/0.4 ML SYRINGE SUB-Q (10:43)
[2023-04-19] MEDS: LOSARTAN POTASSIUM 25 MG TABLET 50 MG PO (10:43)
[2023-04-19] MEDS: hydroCHLOROthiazide 25 MG TABLET PO (10:44)
[2023-04-19 10:46] VITALS: O2SAT 98
--- NOTE | 2023-04-19 13:23 | PM.DS ---
DS: Admitting Diagnosis Discharge Date 04/19/23 Admitting Diagnosis Sepsis Diverticulitis of sigmoid colon fistula of large intestine abnormal urinalysis DS: Discharge Diagnosis Discharge Diagnosis (1) Sepsis: Qualifiers: Sepsis acute organ dysfunction status: without acute organ dysfunction Sepsis type: sepsis due to unspecified organism Qualified Code(s): A41.9 - Sepsis, unspecified organism Code(s): A41.9 - Sepsis, unspecified organism Status: Acute (2) Diverticulitis of sigmoid colon: Code(s): K57.32 - Diverticulitis of large intestine without perforation or abscess without bleeding Status: Acute Assessment and Plan: (3) Fistula of large intestine: Code(s): K63.2 - Fistula of intestine Status: Acute (4) Abnormal urinalysis: Code(s): R82.90 - Unspecified abnormal findings in urine Status: Acute DS: Summary Hospital Course Reason for hospitalization: sepsis related to diverticulitis without perforation or abscess, fistula the large intestine Hospital Course: This is an 82-year-old female who presented to the ER on 04/16/2023 with complaints of left lower quadrant abdominal pain with worsening of her symptoms over past 24 hours prior to admission. She also reported chills and urinary retention on arrival to the ED. a CT scan of the abdomen pelvis shown sigmoid diverticulitis with multiple fistulas however no abscess was seen. UA was positive for 1+ leukocytes, 4+ bacteria, many urine squamous epithelial cells were seen. Urine culture was sent which show no growth. Blood cultures also were drawn which show no growth day 3 in the preliminary. White blood cell count today is 10.6 which is down from 18.9. VSS, patient remains afebrile, she states her pain has improved but does have left lower quadrant pain. during this admission did have some urinary retention of greater than 500 mL of urine on bladder scan requiring placement of a Syed catheter Syed catheter was removed today and patient voided without any complication, post bladder scan did not show any urine in the bladder. Patient had a few days of IV Levaquin and Flagyl, she was switched to oral yesterday and is tolerating. She will continue her antibiotics for total 10 days and follow up with her primary care on an outpatient basis within 1 week. patient agreeable to plan of care and discharge today. Status at Discharge Cognitive/behavioral status at discharge: alert oriented x4 Functional status at discharge: uses cane/walker Overall status at discharge: patient is progressing back to baseline Time Spent with Patient Time attestation: Total time spent providing and/or coordinating discharge services: Time spent: Greater than 30 minutes Exam Narrative: General appearance: Well-developed, well-nourished, no acute distress Head: Normocephalic, nontraumatic Eyes: Clear conjunctiva, PERRLA, EOMI ENT: Oropharynx normal, moist mucous membranes. Neck: Supple, no adenopathy, trachea midline, no JVD Respiratory: Airway patent, no respiratory distress, no accessory muscle use, lungs clear to auscultation, no adventitious lung sounds noted, remains on room air Heart: Regular rate/rhythm, normal S1 and S2. No murmurs, gallops, or friction rub. Abdomen: Soft, non-distended mild tenderness left lower quadrant to palpation, no guarding or rebound, normoactive bowel sounds. Vascular: Normal peripheral pulses, normal capillary refill, no edema. Skin: warm and dry, no rash or lesions noted. Musculoskeletal: Normal range of motion. Neurologic: Alert and oriented ?3,no gross motor deficit DS: Data Data Completed and Pending Completed studies during hospitalization: CT of the abdomen pelvis with contrast Pending studies at discharge: none Labs on day of discharge: Labs from last 24 hours 04/19/23 04/18/23 05:23 18:21 WBC 10.6 H RBC 3.81 L Hgb 11.0 L Hct 35.3 L MCV
== END 2023-04-19 16:00 | disposition home or self-care (01) | DRG 872 ==
LOC: ANHED 20:55 → ANH2MED 21:47
PROVIDERS: Nurse Practitioner Family; Admitting Provider Internal Medicine; Emergency Provider Emergency Medicine; PCP Family Medicine Adolescent Medicine; Visit Provider Nurse Practitioner Acute Care
DX: A41.9 Sepsis, unspecified organism (principal); K57.32 Diverticulitis of large intestine without perforation or abscess without bleeding; K63.2 Fistula of intestine; I12.9 Hypertensive chronic kidney disease with stage 1 through stage 4 chronic kidney disease, or unspecified chronic kidney disease; N18.31 Chronic kidney disease, stage 3a; E78.5 Hyperlipidemia, unspecified; E03.9 Hypothyroidism, unspecified; N32.89 Other specified disorders of bladder; R33.9 Retention of urine, unspecified; R73.03 Prediabetes; H40.9 Unspecified glaucoma; G60.9 Hereditary and idiopathic neuropathy, unspecified; G47.33 Obstructive sleep apnea (adult) (pediatric); F41.1 Generalized anxiety disorder; Z96.652 Presence of left artificial knee joint; Z86.010 Personal history of colon polyps; Z80.0 Family history of malignant neoplasm of digestive organs; Z90.49 Acquired absence of other specified parts of digestive tract
CPT/HCPCS: 36415; 74177; 80053; 81001; 83605; 83690; 83735; 85025; 87040; 87086; 96360; 97165; 99285; A9270; J1650; J1836; J1956; J2270; J2405; J7030; Q9967

== ENCOUNTER 2023-09-28 10:31 | Outpatient (CLI) | payer MEDICARE, SELFPAY ==
--- NOTE | ~2023-09-28 | MR_ITS ---
EXAMINATION: MR brain/brain stem wo con DATE: 09/28/2023 11:31 INDICATION: Anesthesia of skin. TECHNIQUE: Magnetic resonance imaging (MRI) of the brain and brainstem was performed without intraven ous contrast. COMPARISON: None. FINDINGS: There is no intracranial hemorrhage, acute infarction, or abnormal intracranial mass lesion . There are scattered areas of nonspecific increased T2-weighted signal intensity in the cerebral whi te matter. The ventricles are normal in size. The paranasal sinuses are clear. There are likely pedro es of ocular lens replacement surgeries. The mastoid air cells are normal. IMPRESSION: 1. Moderate nonspecific cerebral white matter disease, which likely represents chronic small vessel i schemic disease. Reviewed, dictated and finalized at location A. IMPRESSION: 1. Moderate nonspecific cerebral white matter disease, which likely represents chronic small vessel ischemic disease.
== END 2023-09-28 10:32 | disposition home or self-care (01) ==
LOC: ANHIMG 10:33
PROVIDERS: PCP Family Medicine Adolescent Medicine; Visit Provider Student in an Organized Health Care Education/Training Program
DX: G60.9 Hereditary and idiopathic neuropathy, unspecified (principal); R20.0 Anesthesia of skin; R90.82 White matter disease, unspecified
CPT/HCPCS: 70551

== ENCOUNTER 2023-12-26 09:06 | Outpatient (CLI) | payer MEDICARE, SELFPAY ==
--- NOTE | 2023-12-26 11:15 | NEURO_ITS ---
Clinical note: Patient 83 years old with history of numbness in both feet worse on left than right side. History of prediabetic status. She has had a surgery on the left knee in the past. This study is being performed for evaluation of peripheral neurological system. The findings are given below. Summary of findings: 1. Left sural sensory was absent. Right sural sensory distal latency was normal however amplitude was significant decreased. Right medial plantar sensory was absent. 2. Left and right peroneal motor distal latencies were prolonged and left and normal on the right side however amplitudes were moderately decreased on the left and normal on the right side. Conduction velocities from fibular head to ankle were mildly decreased on both sides. There is no focal slowing noted across the fibular head. 3. Left and right tibial motor distal latency is moderately prolonged but amplitudes were significant decreased. Conduction velocities were mildly decreased. 4. Left H reflex was absent words right H-reflex latency was normal but amplitude of significant decreased. 5. EMG exam him performed using a mono Eli needle electrode and various muscles in lower limbs and related paraspinal muscles were examined. 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 Impression : 1. Evidence of moderate, diffuse, length-dependent, axonal sensory motor polyneuropathy. Etiologic correlation is recommended. 2. Supportive evidence for mild chronic left L4 radiculopathy. Mild chronic denervation changes were seen in paraspinal muscles at this time. Radiographic correlation should be considered. July Roberson MD, FAAN, FAANEM Neurologist / Electrodiagnostic Medicine Nerve Conduction Studies Anti Sensory Summary Table Stim Site NR Onset (ms) Peak (ms) P-T Amp (?V) Site1 Site2 Delta-0 (ms) Dist (mm) Ken (m/s) Left Sural Anti Sensory (Lat Mall) NO RESPONSE Calf NR Calf Lat Mall 120 Right Sural Anti Sensory (Lat Mall) Calf 2.6 3.3 4.3 Calf Lat Mall 2.6 120 46 Ortho Sensory Summary Table Stim Site NR Onset (ms) Peak (ms) P-T Amp (?V) Site1 Site2 Delta-0 (ms) Dist (mm) Ken (m/s) Right Medial Plantar Ortho Sensory (Med Malleolus) NO RESPONSE Digit 1 NR Digit 1 Med Malleolus 100 Motor Summary Table Stim Site NR Onset (ms) O-P Amp (mV) Site1 Site2 Delta-0 (ms) Dist (mm) Ken (m/s) Left Peroneal Motor (Ext Dig Brev) Ankle 6.1 1.0 Ankle Ankle 0.0 80 B Fib 14.5 0.9 Ankle B Fib 8.4 290 35 Popit 16.3 0.8 B Fib Popit 1.8 70 39 Right Peroneal Motor (Ext Dig Brev) Ankle 4.6 2.1 Ankle Ankle 0.0 70 B Fib 12.4 1.7 Ankle B Fib 7.8 280 36 Popit 14.4 1.7 B Fib Popit 2.0 70 35 Popit Ankle 9.8 350 36 Left Tibial Motor (Abd Muro Brev) Ankle 6.6 1.9 Ankle Ankle 0.0 100 Knee 18.4 1.4 Ankle Knee 11.8 445 38 Right Tibial Motor (Abd Muro Brev) Ankle 6.5 2.1 Ankle Ankle 0.0 110 Knee 17.1 1.4 Ankle Knee 10.6 400 38 H Reflex Studies Left Tibial (Mrkrs) (Gastroc) NR H-Lat (ms) Contra H-Lat (ms) L-R Lat Norm M-Lat (ms) HLat-MLat (ms) H-Amp (mV) M-Amp (uV) Dist (mm) NR <2.0 41.59 4.24 1.50 6000.00 Right Tibial (Mrkrs) (Gastroc) NR H-Lat (ms) Max H-Amp (mV) L-R H-Lat (ms) L-R H-Lat Norm M-Lat (ms) M-Amp (mV) H-M Lat (ms) H/M Ratio 30.63 0.39 <2.0 5.47 9.74 25.16 4.05 EMG Side Muscle Nerve Ins
== END 2023-12-26 09:07 | disposition home or self-care (01) ==
LOC: ANHNEURO 09:07
PROVIDERS: PCP Family Medicine Adolescent Medicine; Visit Provider Student in an Organized Health Care Education/Training Program
DX: G60.9 Hereditary and idiopathic neuropathy, unspecified (principal)
CPT/HCPCS: 95886; 95910

== ENCOUNTER 2023-12-30 08:34 | Emergency (ER) | payer MEDICARE, SELFPAY ==
[2023-12-30] VITALS (7 sets, daily range): BP systolic 137–143; BP diastolic 71–82; PULSE 52–64; RESP 12–20; TEMP 36.4; O2SAT 92–100
--- NOTE | ~2023-12-30 | CT_ITS ---
EXAMINATION: CT abdomen pelvis w con DATE: 12/30/2023 10:36 INDICATION: Left lower quadrant abdominal pain. TECHNIQUE: Computed tomography (CT) of the abdomen and pelvis was performed with 100 mL Omnipaque 350 intravenous contrast. Automated exposure control and iterative reconstruction technique were employe d. The dose-length product was 1046.36 mGy-cm. COMPARISON: CT abdomen and pelvis 04/16/2023 FINDINGS: The visualized portions of the lung bases demonstrate mild atelectasis. There is mild bronc hiectasis bilaterally. No pleural effusion. The heart size is normal. There are coronary artery calci fications. No pericardial effusion. There is a small sliding hiatal hernia. The liver and spleen are normal. There are changes of cholecystectomy. The pancreas and adrenal glands are normal. There is co rtical thinning of the kidneys. There are cysts in the kidneys measuring up to 17 mm in the left. The re are scattered diverticula in the colon. There is fat stranding around the sigmoid colon. There is wall thickening in the sigmoid colon. Again seen are fistulas between the sigmoid colon and itself an d a loop of small bowel and the bladder wall. There is a large volume of stool in the colon. The appe ndix is normal. There are no pathologically enlarged lymph nodes. There is trace pelvic ascites. Ther e is severe lumbar spondylosis. Lumbar levoscoliosis is noted. IMPRESSION: 1. Chronic sigmoid diverticulitis with multiple fistulas. No perforation or abscess. Reviewed, dictated and finalized at location A. IMPRESSION: 1. Chronic sigmoid diverticulitis with multiple fistulas. No perforation or abs cess.
--- NOTE | 2023-12-30 09:26 | ED.ABDPAIN ---
HPI - Abdominal Pain General Chief Complaint: Abdominal Pain Stated Complaint: pain in my colon Time Seen by Provider: 12/30/23 08:53 Source: patient Mode of arrival: ambulatory Limitations: no limitations History of Present Illness HPI narrative: Patient is an 83-year-old female who presents the ED with report of left lower quadrant abdominal pain. Patient reports history of recurrent diverticulitis. She sees last Saturday to she began feeling some discomfort in her left-sided abdomen. She called her primary care doctor about this and was started on ciprofloxacin. Has been taking this as prescribed, but reports having worsening pain last night into today. Present throughout left lower abdomen. Denies nausea, vomiting, diarrhea, constipation. Last bowel movement was this morning and soft but normal. Denies rectal bleeding or melena. Denies fevers. Denies difficulty urinating, dysuria, hematuria. Related Data Home Medications Medication Instructions Recorded Confirmed losartan 25 mg tablet 50 mg PO DAILY 08/10/21 12/03/23 lidocaine HCl 4 % topical cream 1 applic topical BID PRN Pain 01/29/22 12/03/23 (Pain Relief (lidocaine)) acetaminophen 500 mg tablet 500 mg PO Q6H PRN Pain 09/24/22 12/03/23 brimonidine 0.2 % eye drops 1 drp EACH EYE TID 01/27/23 12/03/23 baclofen 5 mg tablet 5 - 10 mg PO TID PRN muscle spasm 04/16/23 12/03/23 nystatin 100,000 unit/gram topical 1 applic topical PRN PRN redness 04/16/23 12/03/23 powder oxybutynin chloride 10 mg 10 mg PO DAILY PRN Sweating 04/16/23 12/03/23 tablet,extended release 24 hr polyethylene glycol 3350 17 gram 17 g PO QAM PRN Constipation 04/16/23 12/03/23 oral powder packet (Miralax) Allergies Allergy/AdvReac Type Severity Reaction Status Date / Time clavulanic acid Allergy Mild Hives Verified 12/30/23 08:50 Penicillins Allergy Mild Hives Verified 12/30/23 08:50 amoxicillin Allergy Unknown Hives Verified 12/30/23 08:50 Review of Systems Review of Systems: CONSTITUTIONAL: Denies fever, chills, or sweats. GASTROINTESTINAL: See HPI. GENITOURINARY: Denies dysuria or hematuria. MUSCULOSKELETAL: Denies back pain, extremity pain, myalgia. All systems reviewed & are unremarkable except as noted in HPI and below PMFSH Past Medical History Medical History Chronic kidney disease Stage IIIA Dyslipidemia Generalized anxiety disorder Glaucoma Hypertension Hypothyroidism Idiopathic peripheral neuropathy Obstructive sleep apnea She does not use CPAP Prediabetes Surgical History Surgical History History of cholecystectomy History of colonoscopy with polypectomy History of hysterectomy History of left knee replacement (10/2021) Family History Family History Sibling Carcinoma of colon, Onset Age: 82 Family history of malignant neoplasm of breast in first degree relative, Onset Age: 82 Patient's sister is Father Family history of lung cancer, Onset Age: 62 Patient's father is Mother Family history of coronary artery disease, Onset Age: 87 Patient's mother is Family history of gastrointestinal disorder Other Hypertension Social History Social History Social History: Surrogate medical decision maker: She would like her 3 children to share the decision making if something were to happen to her. Code status: Full code. (she states that she would not want to be dependent or half to live in a long-term care facility) Smoking status: Never smoker Second hand tobacco smoke exposure: No Alcohol intake: never Substance use: never Substance use type: does not use Do You Feel Safe in your Home?: Yes Lack of Transportation: No Lack of Food:
[2023-12-30 09:31] LABS: Basophils Absolute Auto 0.1 K/mm3 (0.0-0.1); Basophils Percent Auto 0.5 % (0.2-1.2); Eosinophils Absolute Auto 0.1 K/mm3 (0-0.3); Eosinophils Percent Auto 1.1 % (0-4.4); Hematocrit 42.5 % (37.0-47.0); Hemoglobin 13.4 g/dL (12.0-15.0); Immature Granulocyte Absolute 0.07 K/mm3 (0.00-0.031); Immature Granulocyte Percent A 0.6 % (0-0.5); Lymphocytes Absolute Auto 1.79 K/mm3 (0.9-3.2); Lymphocytes Percent Auto 15.5 % (18.3-44.2); Mean Corpuscular HGB Conc 31.5 g/dl (32-36); Mean Corpuscular Hemoglobin 28.6 pg (26-34); Mean Corpuscular Volume 90.6 fl (80-100); Mean Platelet Volume 11.8 fl (7.4-10.4); Monocytes Percent Auto 8.2 % (2.6-8.5); Neutrophils Absolute Auto 8.6 K/mm3 (1.3-6.7); Neutrophils Percent Auto 74.1 % (45.5-73.1); Platelet Count Result 239 k/mm3 (150-375); Red Blood Count 4.69 M/mm3 (4.2-5.4); Red Cell Distribution Width 13.2 % (11.5-14.5); White Blood Count 11.6 K/mm3 (4.5-10.0)
[2023-12-30] MEDS: SODIUM CHLORIDE 0.9% IV 500 ML 999 ML IV CONT (09:37)
[2023-12-30 09:43] LABS: Lactic Acid Reflex 1.6 mmol/L (0.7-2.0)
[2023-12-30 09:44] LABS: Alanine Aminotransferase 13 U/L (6-35); Albumin Level 4.4 g/dL (3.5-5.1); Alkaline Phosphatase 69 U/L (38-126); Anion Gap 7 mmol/L (4-12); Aspartate Amino Transferase 18 U/L (14-36); Bilirubin,Total 0.6 mg/dL (0.2-1.3); Blood Urea Nitrogen 14 mg/dL (7-17); Calcium 8.9 mg/dL (8.4-10.2); Carbon Dioxide 25 mmol/L (22-30); Chloride 111 mmol/L (98-107); Estimated CRCL calculation 45 ml/min; Estimated Glomerular Filt Rate 60; Glucose 115 mg/dL (65-110); Lipase 76 U/L (23-300); Potassium 4.2 mmol/L (3.4-5.0); Sodium 143 mmol/L (137-145)
[2023-12-30 11:20] LABS: Appearance Urine Clear (Clear); Bilirubin Urine Negative (Negative); Blood Urine Negative (Negative); Color Urine Yellow (Yellow); Glucose Urine UA Negative (Negative); Ketones Urine Negative (Negative); Leukocyte Esterase Ur Negative LEU/UL (Negative); Nitrate Urine Negative (Negative); Protein Urine Negative (Negative); Urobilinogen Urine 0.2 mg/dL (<2.0)
[2023-12-30 11:27] LABS: Specific Grav Ur > 1.045 (1.001-1.035)
[2023-12-30 11:28] LABS: Add Urine Microscopic? NO
[2023-12-30] MEDS: metroNIDAZOLE 500 MG TABLET PO (12:03)
== END 2023-12-30 12:06 | disposition home or self-care (01) ==
PROVIDERS: Emergency Provider Physician Assistant; PCP Family Medicine Adolescent Medicine
DX: K57.32 Diverticulitis of large intestine without perforation or abscess without bleeding (principal); K63.2 Fistula of intestine
CPT/HCPCS: 36415; 74177; 80053; 81003; 83605; 83690; 85025; 96360; 99284; A9270; J7040; Q9967

== ENCOUNTER 2024-01-01 09:35 | Outpatient (CLI) | payer MEDICARE, SELFPAY ==
--- NOTE | 2024-01-01 11:30 | NEURO_ITS ---
Impression: # Complains of left hand numbness. History of neuropathy in lower extremities. # No Carpal Tunnel Syndrome or ulnar neuropathy. # Left radial sensory response could not be obtained. # Normal needle/EMG exam. Nerve Conduction Studies Anti Sensory Summary Table Stim Site NR Peak (ms) P-T Amp (?V) Site1 Site2 Delta-P (ms) Dist (cm) Ken (m/s) Left Median Anti Sensory (2-3nd Digit) Wrist 3.3 27.1 Wrist 2-3nd Digit 3.3 14.0 42 Wrist 3.3 33.3 Wrist 2-3nd Digit 3.3 14.0 42 Right Median Anti Sensory (2-3nd Digit) Wrist 3.3 31.2 Wrist 2-3nd Digit 3.3 14.0 42 Wrist 3.6 22.4 Wrist 2-3nd Digit 3.3 14.0 42 Left Radial Anti Sensory (Base 1st Digit) NO RESPONSE Wrist NR Wrist Base 1st Digit 0.0 Right Radial Anti Sensory (Base 1st Digit) Wrist 2.7 12.7 Wrist Base 1st Digit 2.7 0.0 Left Ulnar Anti Sensory (5th Digit) Wrist 2.7 39.7 Wrist 5th Digit 2.7 14.0 52 Right Ulnar Anti Sensory (5th Digit) Wrist 2.8 36.2 Wrist 5th Digit 2.8 14.0 50 Motor Summary Table Stim Site NR Onset (ms) O-P Amp (mV) Site1 Site2 Delta-0 (ms) Dist (cm) Ken (m/s) Left Median Motor (Abd Poll Brev) Wrist 3.7 2.3 Elbow Wrist 5.3 29.0 55 Elbow 9.0 1.7 Right Median Motor (Abd Poll Brev) Wrist 3.9 1.3 Elbow Wrist 5.2 28.0 54 Elbow 9.1 1.1 Left Ulnar Motor (Abd Dig Minimi) Wrist 2.8 6.4 A Elbow Wrist 5.5 31.0 56 A Elbow 8.3 4.9 Right Ulnar Motor (Abd Dig Minimi) Wrist 2.9 5.2 A Elbow Wrist 5.1 29.0 57 A Elbow 8.0 5.5 F Wave Studies NR F-Lat (ms) L-R F-Lat (ms) Left Median (Mrkrs) (Abd Poll Brev) 28.69 1.31 Right Median (Mrkrs) (Abd Poll Brev) 30.00 1.31 Left Ulnar (Mrkrs) (Abd Dig Min) 30.94 1.25 Right Ulnar (Mrkrs) (Abd Dig Min) 29.69 1.25 EMG Side Muscle Nerve Root Ins Act Fibs Amp Dur Recrt Comment Right 1stDorInt Ulnar C8-T1 Nml Nml Nml Nml Nml Right Ext Indicis Radial (Post Int) C7-8 Nml Nml Nml Nml Nml Right Ext Digitorum Radial (Post Int) C7-8 Nml Nml Nml Nml Nml Right BrachioRad Radial C5-6 Nml Nml Nml Nml Nml Right PronatorTeres Median C6-7 Nml Nml Nml Nml Nml Right Abd Poll Brev Median C8-T1 Nml Nml Nml Nml Nml Right ABD Dig Min Ulnar C8-T1 Nml Nml Nml Nml Nml Left 1stDorInt Ulnar C8-T1 Nml Nml Nml Nml Nml Left Ext Indicis Radial (Post Int) C7-8 Nml Nml Nml Nml Nml Left Ext Digitorum Radial (Post Int) C7-8 Nml Nml Nml Nml Nml Left BrachioRad Radial C5-6 Nml Nml Nml Nml Nml Left PronatorTeres Median C6-7 Nml Nml Nml Nml Nml Left Abd Poll Brev Median C8-T1 Nml Nml Nml Nml Nml Left ABD Dig Min Ulnar C8-T1 Nml Nml Nml Nml Nml MTDD
== END 2024-01-01 09:36 | disposition home or self-care (01) ==
LOC: ANHNEURO 09:35
PROVIDERS: PCP Family Medicine Adolescent Medicine; Visit Provider Student in an Organized Health Care Education/Training Program
DX: G60.9 Hereditary and idiopathic neuropathy, unspecified (principal)
CPT/HCPCS: 95886; 95911

== ENCOUNTER 2024-01-07 16:15 | Outpatient (RCR) | payer MEDICARE, SELFPAY ==
--- NOTE | 2023-12-18 17:40 | PTOPEVAL1 ---
Assessment and note entered by Padmini Garcia, PT Evaluation Information Assessment Status Evaluation Diagnosis weakness, polyneuropathy Subjective Information Pt reports a fall a couple months ago due to L foot getting caught on carpet and she lost her balance. States has been having neuropathy for many years but seems to get worse recently, started at B feet then up B lower legs, L > R. She had a h/o L TKR; she suspects that some of the numbness on LLE might be from the prosthetic knee which she had done in 2021. States that now she is baby-ing the R knee due to fear of it acting up or hurting because she is determined never to have another knee surgery. Reported Pain Level Pain Score 3: Self Report Assessment PT Clinical Summary Pt. presents with polyneuropathy to BLEs and L hand, postural impairments, weakness to BLEs and core, mild LBP, balance deficits and gait impairments which impact her safety in performing indep standing and walking activities especially on uneven surfaces. She will greatly benefit from continued Skilled PT to address her dizziness, unsteadiness and gait deviations to reduce risk for falls and improve quality of life. Plan of Care Interventions Gait Training,Manual Therapy,Neuro Re-education, Patient/Caregiver Education,Therapeutic Activities, Therapeutic Exercise PT Services Indicated Yes Treatment Frequency and 1-2x/wk x 8 visits Duration These treatments will address the objective and functional deficits as defined above. The patient will be advanced safely and appropriately in order for the patient to progress towards his/her prior level of function. Additional exercises will be introduced and as well as a comprehensive home exercise program upon discharge, if needed, ?to ensure carryover of functional gains achieved in the clinic. This treatment plan has been reviewed and agreement upon by the patient.
--- NOTE | 2024-02-20 10:15 | PCPTNOTE ---
Mrs. Portillo attended a total of 3 treatment sessions from 12/18/23 to 01/07/24. Pt. last session consisted of functional therapeutic and therapeutic exercise to improve functional mobility and strength. During last session pt. had to LOB episodes that required assist to correct and therapist focused on improving stability with functional activities. She cancelled all appointments following last treatment and will be discharged from our care. Thank you for the referral of this patient. Jefe Duckworth, MPT
== END 2024-02-20 12:20 | disposition home or self-care (01) ==
LOC: ANHPT 16:15
PROVIDERS: PCP Family Medicine Adolescent Medicine; Visit Provider Nurse Practitioner Family
DX: R26.81 Unsteadiness on feet (principal); G62.9 Polyneuropathy, unspecified
CPT/HCPCS: 97110; 97161; 97530

== ENCOUNTER 2024-02-11 15:36 | Outpatient (CLI) | payer MEDICARE, SELFPAY ==
--- NOTE | ~2024-02-11 | MR_ITS ---
Procedure: MR lumbar spine wo con Ordering provider: Cheryl Sánchez, History: . Concern for L lumbar radiculopathy . Comparison: None. Technique: MRI thoracic spine without contrast. FINDINGS: SPINAL CORD: Normal. The cord ends at the level of L1. VERTEBRAL BODIES: Normal height and alignment. No compression fracture. Normal marrow signal. Hemangi tj is seen in the right side of the L1. DISK SPACES: Narrowing of disc spaces L1-L2, L2-L3, L3-L4 and L4-L5. Endplate changes are seen at the level of L2-L3 with edema. T12-L1: Normal. L1-L2: No stenosis. Diffuse disc bulge. L2-L3: Moderate spinal canal stenosis. Diffuse disc bulge with thickening of the ligamenta flava. Rig ht facet joint disease. Right nerve root compression. L3-L4: Moderate spinal canal stenosis. Diffuse disc bulge. Thickening of the ligamenta flava. Right f acet joint disease. Narrowing of the right intervertebral foramen with root compression. L4-L5: Severe spinal canal stenosis. Diffuse disc bulge. Thickening of the ligamenta flava. Bilateral facet joint disease. Annulus tear. Nerve root compression the left foramen and outside the foramina on the right side. L5-S1: No spinal canal stenosis. Mild diffuse disc bulge. Bilateral facet joint disease. Narrowing of the left intervertebral foramen with root compression. PARASPINOUS SOFT TISSUES: Bilateral kidney parapelvic cysts. Hydronephrotic changes is not excluded. IMPRESSION: No compression fracture. Multilevel degenerative disc disease with variable degrees of spinal canal stenosis, intervertebral f oraminal narrowing and the root compression. Reviewed, dictated and finalized at location A. IMPRESSION: No compression fracture. Multilevel degenerative disc disease with variable degrees of spinal canal sten osis, intervertebral foraminal narrowing and the root compression.
== END 2024-02-11 15:37 | disposition home or self-care (01) ==
PROVIDERS: PCP Family Medicine Adolescent Medicine; Visit Provider Student in an Organized Health Care Education/Training Program
DX: M54.16 Radiculopathy, lumbar region (principal); M51.36 Other intervertebral disc degeneration, lumbar region
CPT/HCPCS: 72148

== ENCOUNTER 2025-03-04 20:11 | Emergency (ER) | payer MEDICARE, SELFPAY ==
--- NOTE | ~2025-03-04 | CT_ITS ---
EXAMINATION: CT cervical spine wo con DATE: 03/04/2025 21:16 INDICATION: Brain bleed. Status post fall. TECHNIQUE: Computed tomography (CT) of the cervical spine was performed without intravenous contrast. The dose-length product was 448 mGy-cm. Automated exposure control and iterative reconstruction technique were employed. COMPARISON: CT dated 02/16/2019 FINDINGS: There is left apical pleural thickening/scarring. There is a fracture of the left temporal bone involving the superior aspect of the mastoid air cells. There is small amount of fluid in left mastoid air cells, likely hemorrhage. Odontoid process is normal. Craniovertebral junction is normal. Vertebral body heights are maintained. Craniovertebral junction is normal. No evidence for perched facet. There is advanced cervical spondylosis at C4-5, C5-6 and C6-7. No acute fracture, subluxation or dislocation. There is moderate multilevel uncinate and facet hypertrophy. IMPRESSION: 1. No acute abnormality of the cervical spine. Reviewed, dictated and finalized at location O.
--- NOTE | ~2025-03-04 | XR_ITS ---
XR chest 1V 03/04/2025 20:42 Indication: Head trauma. Procedure: AP portable chest Comparison: 01/24/2023 Findings: Cardiomegaly. There are bilateral interstitial infiltrates with peribronchial thickening. No pleural effusion or pneumothorax. No acute osseous abnormality. Impression: 1: Bilateral interstitial infiltrates may represent mild edema or pneumonia. 2: Cardiomegaly. Reviewed, dictated and finalized at location O. Impression: 1: Bilateral interstitial infiltrates may represent mild edema or pneumonia. 2: Cardiomegaly.
--- NOTE | ~2025-03-04 | CT_ITS ---
EXAMINATION: CT brain wo con DATE: 03/04/2025 20:33 INDICATION: Head trauma TECHNIQUE: Computed tomography (CT) of the head was performed without intravenous contrast. The dose-length product was 605.33 mGy-cm. Automated exposure control and iterative reconstruction technique were employed. COMPARISON: CT dated 02/16/2019 FINDINGS: There is a left hemispheric subdural hemorrhage measuring 6 mm with. There is midline shift to the right measuring 2 mm. There is a probable subarachnoid component to the hemorrhage in the left temporal-parietal parietal region. There is a nondisplaced fracture along the superior aspect of the mastoid air cells. Paranasal sinuses and mastoids are pneumatized. Generalized atrophy. There are scattered mild periventricular and subcortical white matter changes, most likely related to small vessel ischemic disease (microangiopathy). No ventriculomegaly. Basilar cisterns are patent. IMPRESSION: 1. Left hemispheric subdural hemorrhage measuring 6 mm greatest width. There is mass effect with midline shift to the right measuring 2 mm. 2: Small focal area of subarachnoid hemorrhage left temporal parietal region. 3: Nondisplaced left temporal skull fracture along the superior margin of the mastoid air cells. Dr. Anderson Ballard discussed with Dr. Donnie Martinez MD at 03/04/2025 20:42 CDT. Reviewed, dictated and finalized at location O. IMPRESSION: 1. Left hemispheric subdural hemorrhage measuring 6 mm greatest width. There is mass effect with midline shift to the right measuring 2 mm. 2: Small focal area of subarachnoid hemorrhage left temporal parietal region. 3: Nondisplaced left temporal skull fracture along the superior margin of the m astoid air cells. Dr. Anderson Ballard discussed with Dr. Donnie Martinez MD at 03/04/2025 20:42 CDT.
--- OUTSIDE RECORDS SUMMARY | 2025-03-04 20:20 | XMS_ITS | Encounter Summary ---
Author Organization [facility] Address [address] [facility] [address] [place] [address] Care Team Providers Care Public Services Assistant Name Role Phone Tim Daniel MD Primary Care Prov ider Adam Callahan MD Primary Care Provide r Tim Daniel MD Primary Care Prov ider Adam Callahan MD Primary Care Provide r Tim Daniel MD Primary Care Prov ider Encounter Details Date Type Department Care Team (Late st Contact Info) Description 11/20/2016 Orders Only [facility] Provider, MD [place] [address] [place] [id number] Social History Tobacco Use Types Packs/Day Years Used Date Smoking Tobacco: Never Alcohol Use Standard Drinks/Week Comments No 0 (1 standard drink = 0.6 oz pur e alcohol) Comments Unknown Sex and Gender Information Value Date Recorded Sex Assigned at Not on file Legal Sex Female 9:29 AM CDT Gender Identity Not on file Sexual Orientation Not on file documented as of this encounter Plan of Treatment Not on file documented as of this encounter Procedures Procedure Name Priority Date/Time Associated Diagnosis Comments CARDIOLOGY REPORT 11/20/2016 documented in this encounter Results * CARDIOLOGY REPORT (11/20/2016) Anatomical Region Laterality Modality Other Narrative 11/20/2016 Ordered by an unspecified provider. us Historical Provider [facility] Final Result documented in this encounter Visit Diagnoses Not on filedocumented in this encounter Care Teams Public Services Assistant Relationship Specialty Start Date End Date Tim Daniel MD PCP - General 09/28/16 05/30/17 Adam Callahan MD [address] [place] [address] PCP - General 05/31/17 06/18/17 Tim Daniel MD PCP - General Family Medicine 06/19/17 06/27/17 Adam Callahan MD [address] [place] [address] PCP - General 06/28/17 07/30/17 Tim Daniel MD PCP - General Family Medicine 07/31/17 documented as of this encounter
--- OUTSIDE RECORDS SUMMARY | 2025-03-04 20:20 | XMS_ITS | Encounter Summary ---
Author Organization [facility] Healthcare Address [address] [place] [address] Care Team Providers Care Disk Recordist Name Role Phone Tim Daniel MD Primary Care Prov ider Reason for Visit * Reason Onset Date Comments READY TO SCHEDULED 02/11/2023 Encounter Details Date Type Department Care Team (Late st Contact Info) Description 02/11/2023 Telephone [facility] Specialty Services [address] [place] [address] Miscellaneous, Not In File READY TO SCHEDULED Social History Tobacco Use Types Packs/Day Years Used Date Smoking Tobacco: Never Smokeless Tobacco: Never Alcohol Use Standard Drinks/Week Comments No 0 (1 standard drink = 0.6 oz pur e alcohol) AUDIT-C Answer Date Recorded Frequency of Alcohol Consumption Not on file 01/23/2022 Q2: How many drinks containi ng alcohol do you have on a typical day when you are drinking? Patient does not drink Frequency of Binge Drinking Not on file 12/30 Comments No Sex and Gender Information Value Date Recorded Sex Assigned at Not on file Legal Sex Female 9:29 AM CDT Gender Identity Not on file Sexual Orientation Not on file documented as of this encounter Plan of Treatment Not on file documented as of this encounter Visit Diagnoses Not on filedocumented in this encounter Care Teams Disk Recordist Relationship Specialty Start Date End Date Tim Daniel MD PCP - General Family Medicine 07/31/17 documented as of this encounter
--- OUTSIDE RECORDS SUMMARY | 2025-03-04 20:20 | XMS_ITS | Clinical Summary ---
Author Organization [facility] [place] [address] Address [address] [place] [address] Care Team Providers Care Renal Nurse Name Role Phone Tim Daniel MD Primary Care Prov ider Allergies Active Allergy Reactions Criticality Noted Date Comments Amoxicillin Hives Medium Amoxicillin Trihydrate Hives Medium 03/06/2013 Amoxicillin-Pot Clavulanate Hives High Medications hydroCHLOROthia zide (HYDRODIURIL) 25 mg tabletIndicatio ns:hypertension Take 1 tablet (25 mg total) by mouth every morning Active ALPRAZolam (XANAX) 0.25 mg tablet Take 1 tablet (0.25 mg total) by mouth daily as needed for anxiety 1 Active levothyroxine (SYNTHROID) 50 mcg tabletIndicatio ns:hypothyroidi sm Take 1 tablet (50 mcg total) 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 6 capsule 2 Active alpha lipoic acid 200 mg capsule Take by mouth Active baclofen (LIORESAL) 5 mg tablet 1 tablet (5 mg total) 3 Active oxyBUTYnin XL (DITROPAN-XL) 10 mg 24 hr tablet Take 1 tablet (10 mg total) by mouth daily 3 Active brimonidine (ALPHAGAN) 0.2 % ophthalmic solution INSTILL 1 DROP INTO EACH EYE THREE TIMES DAILY 45 mL 1 4 Active losartan (COZAAR) 25 mg tablet Take 2 tablets (50 mg total) by mouth daily [address] (VOLTAREN) 75 mg EC tablet Take 1 tablet (75 mg total) by mouth 2 (two) times a day 5 Active hydrOXYzine (ATARAX) 25 mg tablet TAKE 1 TABLET BY MOUTH EVERY DAY AT BEDTIME NEEDED FOR INSOMNIA 5 Active pregabalin (LYRICA) 50 mg capsule Take 1 capsule (50 mg total) by mouth 2 (two) times a day for 14 days 28 capsule 2 02/09/20 22 Discontinu ed(Stop Taking at Discharge) Active Problems Problem Noted Date Diagnosed Date Diverticulosis 08/05/2023 Assessment & Plan (08/05/2023 12:37 PM PASSPORT SUPPORT ASSOCIATE): Images from the original note were not included. Diverticulitis 08/05/2023 Assessment & Plan (08/05/2023 12:48 PM PASSPORT SUPPORT ASSOCIATE): Patient recently hospitalized at [facility] and had drain put in and taken out, no records at this time I will request for them. Refer to general surgery to further evaluate for colon resection Labile hypertension 09/12/2022 Osteoarthritis 02/07/2022 Primary osteoarthritis of right knee 01/09/2022 Overview (01/09/2022): Added automatically from request for surgery [id number] Disorder of thyroid gland 01/05/2022 Neuropathy 01/05/2022 Ptosis of both eyelids 08/02/2021 Mixed hyperlipidemia 07/19/2021 MACK (dyspnea on exertion) 12/28/2019 Pulmonary hypertension 07/31/2017 Non-rheumatic mitral regurgitation 07/31/2017 Secondary cataract 06/04/2017 Abnormal C-reactive protein 11/20/2016 Overview (11/23/2016): Elevated C-reactive protein (CRP) Palpitations 11/20/2016 Overview (11/23/2016): Palpitations Obesity with body mass index 30 or greater 11/20 Overview (11/23/2016): Obesity (BMI 35.0-39.9 without comorbidity) MARIA ESTHER (obstructive sleep apnea) 11/20/2016 Overview (11/23/2016): MARIA ESTHER (obstructive sleep apnea) Chronic fatigue 11/20/2016 Overview (11/23/2016): Chronic fatigue Benign hypertension 11/20/2016 Overview (11/23/2016): HTN (hypertension), benign Primary open angle glaucoma (POAG) 06/08/2016 Assessment & Plan (07/04/2023 12:54 PM PASSPORT SUPPORT ASSOCIATE): Excellent intraocular pressure (IOP) both eyes (OU) Cont present meds FU Dr Verde Assessment & Plan (01/22/2019 9:48 AM CDT): Has been following locally, s/p ExPRESS both eyes Question POAG versus LTG both Testing today stable from 2012 (2010 OS) IOP 12/09, good blebs both Continue to monitor for now off drops - if VF (yearly) changes or IOP > 18 please start medications. F/U Dr. Ingram 6 months Dry eyes 08/09/2015 Open-angle glaucoma 12/25/2010 Assessment & Plan (07/04/2023 12:55 PM PASSPORT SUPPORT ASSOCIATE): Excellent intraocular pressure (IOP) both eyes (OU) Cont present meds FU Dr Verde Pseudophakia 12/25/2010 Assessment & Plan (07/04/2023 12:53 PM PASSPORT SUPPORT ASSOCIATE): Essentially stable refraction. Good vision today Discussed vf loss from glaucoma and decrease in contrast sens is causing most of her issues Assessment & Plan (01/17/2023 9:04 AM CDT): Essentially stable refraction. Pt would like to try srx without prism Discussed vf loss from glaucoma and decrease in contrast sens is causing most of her issues Will increase add power for near vison Resolved Problems Problem Noted Date Diagnosed Date Resolved Date Dyslipidemia 11/20/2016 09/12/2022 Overview (11/23/2016): Dyslipidemia Encounters Date Type Department Care Team Description 12/16/2024 Orders Only [facility] Medicine Ophthalmology [facility] [place] [address] Karthik Verde MD Primary open angle glaucoma (POAG) of both eyes, severe stage (Primary Dx) from Last 3 Months Surgical History Surgery Date Site/Laterality Comments GALLBLADDER SURGERY HYSTERECTOMY IRIDOTOMY / IRIDECTOMY COLONOSCOPY APPENDECTOMY KNEE SURGERY N/A CATARACT EXTRACTION Bilateral Medical History Medical History Date Comments Hypertension Dyslipidemia Palpitations Sleep apnea Glaucoma High cholesterol Hypertension Colon polyp Depression Diverticulitis Chronic kidney disease Anxiety Neuropathy Family History Medical History Relation Name Comments Lung cancer Father Cancer, lung; C ause of : Cancer, lung Heart failure Mother Congestive hea rt failure; Cause of : Congestive heart failure Anesthesia problems Neg Hx Relation Name Status Comments Father (Age 62) Mother (Age 87) Social History Tobacco Use Types Packs/Day Years Used Date Smoking Tobacco: Never Passive Smoke Exposure: Never Smokeless Tobacco: Never Alcohol Use Standard Drinks/Week Comments No 0 (1 standard drink = 0.6 oz pur e alcohol) AUDIT-C Answer Date Recorded Frequency of Alcohol Consumption Not on file 01/23/2022 Q2: How many drinks containi ng alcohol do you have on a typical day when you are drinking? Patient does not drink Frequency of Binge Drinking Not on file 12/30 Personal Safety Answer Date Recorded Have you ever been in or are you currently in a harmful physical or emotional relationship or is someone making you feel afraid or unsafe? Denies 03/26/2023 Comments No Sex and Gender Information Value Date Recorded Sex Assigned at Not on file Legal Sex Female 9:29 AM CDT Gender Identity Not on file Sexual Orientation Not on file Obstetrics History Last Filed Vital Signs Vital Sign Reading Time Taken Comments Blood Pressure 107/71 09/26/2023 3:06 PM CDT Pulse 67 09/26/2023 3:06 PM CDT Temperature 37 C (98.6 F) 09/26/2023 3:06 PM CDT Respiratory Rate 18 04/15/2023 6:15 PM CDT Oxygen Saturation 97% 09/26/2023 3:06 PM CDT Inhaled Oxygen Concentration - - Weight 93.7 kg (206 lb 8 oz) 09/26/2023 3:06 PM CDT Height 167.6 cm (5' 6) 09/26/2023 3:06 PM CDT Body Mass Index 33.33 09/26/2023 3:06 PM CDT Plan of Treatment Health Maintenance Due Date Last Done Comments Depression Screening 1940 Osteoporosis Screening-Bone Density Scan 1940 DTaP/Tdap/Td Vaccine (1 - Tdap) 11/07/1950 Hepatitis B Screening 11/07/1957 Pneumococcal vaccine 65+ (1 of 1 - PCV) 11/07/1989 Zoster Vaccine (1 of 2) 11/07/1989 Well Visit 65+ 11/07/2004 Covid-19 Vaccine ( - season) 2024 01/18/2022, 09/13/2020, 08/23/2020 Fall Risk Assessment 03/26/2024 03/26/2023 Influenza Vaccine (#1) 2025 Medical Devices Implanted Type Area Certified Dental Assistant Device Identifier Shelf Expiration Date Model / Serial / Lot [employer] Simplex P Full Dose Radiopaque Preblend Cement Bone Tobramycin 6197-9-010 - Sna - [id number] Implanted:Qty: 1 on 02/07/2022 by Lucie Benson MD at [facility] Bone Cement Left: Knee [employer] 04/30/2023 6197-9-0 10 / NA / [id number] Description:1gram vancomycin added. [employer] Simplex P Full Dose Radiopaque Preblend Cement Bone Tobramycin 6197-9-010 - Sna - [id number] Implanted:Qty: 1 on 02/07/2022 by Lucie Benson MD at [facility] Bone Cement Left: Knee [employer] 04/30/2023 6197-9-0 10 / NA / [id number] Description:1gram vancomycin added. [employer] Triathlon Cruciate Retaining Cemented Knee Left 5 Component 5510-F-501 - Sna - [id number] Implanted:Qty: 1 on 02/07/2022 by Lucie Benson MD at [facility] Other - see comments Left: Knee [employer] [id number] 06/15/2026 5510-F-5 01 / NA / [id number] [employer] Triathlon Knee 5 [place] Baseplate Tibial Cocr 5521-B-500 - Sna - [id number] Implanted:Qty: 1 on 02/07/2022 by Lucie Benson MD at [facility] Other - see comments Left: Knee [employer] [id number] 12/04/2026 5521-B-5 00 / NA / [id number] [employer] Insert Tibial Triathlon 5 H9mm Knee Bearing Condylar Stabilize Sterile 8285-D-966-E - Sna - [id number] Implanted:Qty: 1 on 02/07/2022 by Lucie Benson MD at [facility] Other - see comments Left: Knee [employer] [id number] 11/30/2025 5531-G-5 09-E / NA / [id number] Explanted Type Area Certified Dental Assistant Device Identifier Shelf Expiration Date Model / Serial / Lot [employer] 4mm 140mm Knee Straight Pin Fixation Sterile [id number] - Sna - [id number] Explanted:Qty: 1 on 02/07/2022 by Lucie Benson MD at [facility] Other - see comments Left: Knee [employer] [id number] 07/19/2026 [id number] / NA / [id number] Description:For fixational p urposes only. Not intended for implant. Insurance MEDICARE [facility] MEDICARE BLUE CROSS MEDICARE SUPPLEMENT MEDICARE [facility] [place] Advance Directives For more information, please contact: [phone] * Full Code (Latest Code Status on File) Date Activated Date Inactivated Comments 03/26/2023 2:13 PM 03/26/2023 9:08 PM * Full Code Date Activated Date Inactivated Comments 02/07/2022 3:14 PM 02/08/2022 9:23 PM Care Teams Renal Nurse Relationship Specialty Start Date End Date Tim Daniel MD PCP - General Family Medicine 07/31/17
--- NOTE | 2025-03-04 20:27 | ECG_ITS ---
Test Date: 2025-03-04 20:48:06 Measurements Intervals [place] Rate: 66 P: 5 AL: 130 QRS: 3 QRSD: 101 T: 67 QT: 420 QTc: 441 Interpretive Statements SINUS RHYTHM WITH MARKED SINUS ARRHYTHMIA No previous ECG available for comparison Electronically Signed On 03-05-2025 12:30:36 CDT by Eric Felix M.D.
[2025-03-04 20:35] LABS: Hematocrit 41.3 % (37.0-47.0); Hemoglobin 13.3 g/dL (12.0-15.0); Immature Granulocyte Percent A 0.7 % (0-0.5); Lymphocytes Absolute Auto 0.79 K/mm3 (0.9-3.2); Mean Corpuscular HGB Conc 32.2 g/dl (32-36); Mean Corpuscular Hemoglobin 29.0 pg (26-34); Mean Corpuscular Volume 90.2 fl (80-100); Nucleated Red Blood Cells Absolute Auto 0.000 K/mm3 (0.0-0.012); Nucleated Red Blood Cells Perc 0.0 % (0.0-0.2); Platelet Count Result 166 k/mm3 (150-375); Red Blood Count 4.58 M/mm3 (4.2-5.4); White Blood Count 17.3 K/mm3 (4.5-10.0)
[2025-03-04 20:38] LABS: Estimated Glomerular Filt Rate 53
[2025-03-04 20:46] VITALS: BP 160/86; PULSE 70; RESP 13; TEMP 36.8; O2SAT 100
[2025-03-04 20:46] LABS: INR 1.1; Prothrombin Time 13.9 Seconds (11.1-14.7)
[2025-03-04 20:47] LABS: Partial Thromboplastin Time 25.6 Seconds (22.3-36.8)
[2025-03-04 20:48] LABS: Alanine Aminotransferase 17 U/L (6-35); Albumin Level 4.3 g/dL (3.5-5.1); Alkaline Phosphatase 69 U/L (38-126); Anion Gap 10 mmol/L (4-12); Aspartate Amino Transferase 28 U/L (14-36); Bilirubin,Total 0.7 mg/dL (0.2-1.3); Blood Urea Nitrogen 21 mg/dL (7-17); Calcium 9.0 mg/dL (8.4-10.2); Carbon Dioxide 23 mmol/L (22-30); Chloride 106 mmol/L (98-107); Estimated Glomerular Filt Rate 57; Glucose 217 mg/dL (65-110); Potassium 3.7 mmol/L (3.4-5.0); Sodium 139 mmol/L (137-145); Total Protein 7.5 g/dL (6.3-8.2)
[2025-03-04 20:53] VITALS: BP 160/86; PULSE 70; RESP 12; O2SAT 100
[2025-03-04 20:55] VITALS: PULSE 75
--- NOTE | 2025-03-04 20:55 | ED_ITS ---
HPI - General Adult General Chief complaint: Altered Mental Status Stated complaint: left ear bleeding, stroke likie symmptoms. Time Seen by Provider: 03/04/25 20:24 History of Present Illness HPI narrative: Patient is a poor historian and history is obtained from her and her son. This is a 84-year-old female presenting after a ground level fall. At around 6:00 a.m. she fell over backwards striking her head. After that she started to word-finding difficulty and jumbled speech. She also started bleeding from her left ear. He was then brought to the hospital for evaluation. She denies any visual changes or extremity weakness. No use of blood thinners. Related Data Home Medications ?Medication ?Instructions ?Recorded ?Confirmed ?Last Taken ?Type lidocaine HCl 4 % topical cream 1 applic topical BID P RN Pain 01/29/22 02/23/25 Unknown History (Pain Relief (lidocaine)) acetaminophen 500 mg tablet 500 mg PO Q6H PRN Pain 02/23/25 Unknown History brimonidine 0.2 % eye drops 1 drp EACH EYE TID 3 02/23/25 Unknown History baclofen 5 mg tablet 5 - 10 mg PO TID PRN muscle spasm 04/16/23 02/23/25 Unknown History Allergies Allergy/AdvReac Type Severity Reaction Status Date / Time clavulanic acid Allergy Mild Hives Verified 02/23/25 13:02 Penicillins Allergy Mild Hives Verified 02/23/25 13:02 amoxicillin Allergy Unknown Hives Verified 02/23/25 13:02 [facility] Past Medical History Medical History Right knee pain Leukocytosis Diverticulitis of sigmoid colon Imbalance Unsteady gait Visual hallucinations Renteria's cyst of knee Left foot drop Polyneuropathy Dyslipidemia Chronic kidney disease Stage IIIA Generalized anxiety disorder Glaucoma Idiopathic peripheral neuropathy Obstructive sleep apnea She does not use CPAP Prediabetes Hypothyroidism Hypertension Surgical History Surgical History History of left knee replacement (10/2021) History of colonoscopy with polypectomy History of cholecystectomy History of hysterectomy Family History Family History Sibling Carcinoma of colon, Onset Age: 82 Family history of malignant neoplasm of breast in first degree relative, Onset Age: 82 Patient's sister is Father Family history of lung cancer, Onset Age: 62 Patient's father is Mother Family history of coronary artery disease, Onset Age: 87 Patient's mother is Family history of gastrointestinal disorder Other Hypertension Social History Social History Social History: Surrogate medical decision maker: She would like her 3 children to share the decision making if something were to happen to her. Code status: Full code. (she states that she would not want to be dependent or half to live in a long-term care facility) Smoking status: Never smoker Second hand tobacco smoke exposure: No Alcohol intake: never Substance use: never Substance use type: does not use Do You Feel Safe in your Home?: Yes Lack of Transportation: No Lack of Food: Never True Current Housing: I Have Housing Concerned About Future Housing: No Difficulty Paying Gas/Electric Bills: No Difficulty Paying for Meds: No Currently Unemployed: No Education: High School Diploma/GED Difficulty w/ Childcare or Family Care: No Living arrangements: with family Additional living arrangements comments: She has been since March 2021. She lives her son Willian. She has 2 sons and 1 daughter. 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 Spiritual care concerns: No Agree to blood products: Yes Exam 2 Narrative: APPEARANCE: No apparent distress. Head: atraumatic. EYES: EOMI, NOSE: Atraumatic NECK: Trachea midline RESPIRATORY: No increased rate of breathing CTAB CARDIOVASCULAR: RRR, ABDOMINAL: Non-distended MUSCULOSKELETAl: No obvious deformities NEURO: Alert. Patient has mild/moderate aphasia w/ word finding difficulty and Cranial nerves 2-12 grossly intact. Sensation light touch, motor function cerebellar function intact for 4 extremities. SKIN:: Warm, dry. Normal color PSYCHIATRIC: Normal affect Course Vital Signs Vital signs: Vital Signs Pulse Rate 70 03/04/25 20:46 Respiratory Rate 13 03/04/25 20:46 Blood Pressure 160/86 H 03/04/25 20:46 Pulse Oximetry 100 03/04/25 20:46 Oxygen Delivery Room Air 03/04/25 20:46 Pulse Rate 70 03/04/25 20:46 Respiratory Rate 13 03/04/25 20:46 Blood Pressure 160/86 H 03/04/25 20:46 Pulse Oximetry 100 03/04/25 20:46 Oxygen Delivery Room Air 03/04/25 20:46 Medical Decision Making MDM Narrative Medical decision making narrative: -Course: 84-year-old female presenting after ground level fall. Patient has abrasion on the back her head. She has bleeding from her left ear ear canal. I do not appreciate hemotympanum. Patient has aekt-ie-ieyohghp aphasia and word- finding difficulty. The rest of her neurologic exam is normal and she does not have any focal findings. Her CT showed a subdural hematoma with 2 mm midline shift and a small subarachnoid hemorrhage and temporal bone fracture. Patient is not on blood thinners. Patient and family were updated. Patient is hemodynamically stable and protecting her airway at this time. She will be transferred emergently to [facility]. Accepted in the emergency department by Dr. Bartholomew. Vital Signs Vital Signs: Vital Signs Pulse Rate 70 03/04/25 20:46 Respiratory Rate 13 03/04/25 20:46 Blood Pressure 160/86 H 03/04/25 20:46 Pulse Oximetry 100 03/04/25 20:46 Oxygen Delivery Room Air 03/04/25 20:46 Pulse Rate 70 03/04/25 20:46 Respiratory Rate 13 03/04/25 20:46 Blood Pressure 160/86 H 03/04/25 20:46 Pulse Oximetry 100 03/04/25 20:46 Oxygen Delivery Room Air 03/04/25 20:46 Lab Data 03/04/25 20:29 03/04/25 20:32 Labs: Lab Results 03/04/25 03/04/25 Range/Units 20:29 20:32 WBC 17.3 H (4.5-10.0) K/mm3 RBC 4.58 (4.2-5.4) M/mm3 Hgb 13.3 (12.0-15.0) g/dL Hct 41.3 (37.0-47.0) % MCV 90.2 (80-100) fl MCH 29.0 (26-34) pg MCHC 32.2 (32-36) g/dl RDW 13.0 (11.5-14.5) % Plt Count 166 (150-375) k/mm3 MPV 11.3 H (7.4-10.4) fl Immature Gran % (Auto) 0.7 H (0-0.5) % Neut % (Auto) 91.6 H (45.5-73.1) % Lymph % (Auto) 4.6 L (18.3-44.2) % [place] % (Auto) 2.7 (2.6-8.5) % Eos % (Auto) 0.1 (0-4.4) % Baso % (Auto) 0.3 (0.2-1.2) % Lymph # (Auto) 0.79 L (0.9-3.2) K/mm3 [place] # (Auto) 0.5 (0.1-0.6) K/mm3 Eos # (Auto) 0.0 (0-0.3) K/mm3 Baso # (Auto) 0.1 (0.0-0.1) K/mm3 Abs Immat Gran (auto) 0.13 H (0.00-0.031) K/mm3 Absolute Neuts (auto) 15.9 H (1.3-6.7) K/mm3 Absolute Nucleated RBC 0.000 (0.0-0.012) K/mm3 Nucleated RBC % 0.0 (0.0-0.2) % PT 13.9 (11.1-14.7) Seconds INR 1.1 APTT 25.6 (22.3-36.8) Seconds Sodium 139 (137-145) mmol/L Potassium 3.7 (3.4-5.0) mmol/L Chloride 106 (98-107) mmol/L Carbon Dioxide 23 (22-30) mmol/L Anion Gap 10 (4-12) mmol/L BUN 21 H (7-17) mg/dL Creatinine 0.93 1.00 (0.7-1.0) mg/dL Estim Creat Clear Calc Not Reportable Not Reportable Estimated GFR 57 L 53 L (59 - ) Glucose 217 H (65-110) mg/dL Calcium 9.0 (8.4-10.2) mg/dL Total Bilirubin 0.7 (0.2-1.3) mg/dL AST 28 (14-36) U/L ALT 17 (6-35) U/L Alkaline Phosphatase 69 (38-126) U/L Troponin I Pending Total Protein 7.5 (6.3-8.2) g/dL Albumin 4.3 (3.5-5.1) g/dL Discharge Plan Discharge Clinical Impression: Acute subdural hematoma, Subdural bleeding Patient Disposition: Acute Care Hospital Condition: Stable Patient Language: Amharic Prescriptions: No Action azelastine 137 mcg (0.1 %) aerosol,spray 137 mcg intranasal Q12H Qty: 30 0RF Rx Instructions: administer into each nostril lidocaine HCl [Pain Relief (lidocaine)] 4 % cream 1 applic topical BID PRN (Reason: Pain) Rx Instructions: lower back acetaminophen 500 mg tablet 500 mg PO Q6H PRN (Reason: Pain) diclofenac sodium 75 mg tablet,delayed release (DR/EC) 75 mg PO BID Qty: 60 2RF brimonidine 0.2 % drops 1 drp EACH EYE TID baclofen 5 mg tablet 5 - 10 mg PO TID PRN (Reason: muscle spasm) hydrochlorothiazide 25 mg tablet 25 mg PO DAILY Qty: 90 2RF meclizine 25 mg tablet See Rx Instructions .ROUTE .COMPLEX Qty: 30 0RF Dose Instruction: TAKE 1 TABLET BY MOUTH 4 TIMES DAILY NEEDED FOR DIZZINESS Rx Instructions: TAKE 1 TABLET BY MOUTH 4 TIMES DAILY NEEDED FOR DIZZINESS oxybutynin chloride 10 mg tablet extended release 24hr 10 mg PO DAILY PRN (Reason: Sweating) Qty: 90 2RF levothyroxine 50 mcg tablet See Rx Instructions .ROUTE .COMPLEX Qty: 90 2RF Dose Instruction: Take 1 tablet by mouth once daily Rx Instructions: Take 1 tablet by mouth once daily hydroxyzine HCl 25 mg tablet See Rx Instructions .ROUTE .COMPLEX Qty: 30 3RF Dose Instruction: TAKE 1 TABLET BY MOUTH EVERY DAY AT BEDTIME NEEDED FOR INSOMNIA Rx Instructions: TAKE 1 TABLET BY MOUTH EVERY DAY AT BEDTIME NEEDED FOR INSOMNIA alprazolam 0.25 mg tablet 0.25 mg PO DAILY PRN (Reason: anxiety) Qty: 30 4RF losartan 25 mg tablet See Rx Instructions .ROUTE .COMPLEX Qty: 90 0RF Dose Instruction: Take 2 tablets by mouth once daily Rx Instructions: Take 2 tablets by mouth once daily Follow-up/Referrals: Ivory Matos, [employer] [Primary Care Provider, Family Practice]
[2025-03-04 20:58] LABS: Troponin I < 0.012 ng/mL (0.000-0.034)
[2025-03-04 21:01] VITALS: O2SAT 99
[2025-03-04 21:30] VITALS: BP 176/8; PULSE 74; RESP 15; O2SAT 99
== END 2025-03-04 21:30 | disposition short-term general hospital (02) ==
LOC: ANHED 21:08
PROVIDERS: Emergency Provider Emergency Medicine; PCP Nurse Practitioner Family
DX: S06.5X0A Traumatic subdural hemorrhage without loss of consciousness, initial encounter (principal); I12.9 Hypertensive chronic kidney disease with stage 1 through stage 4 chronic kidney disease, or unspecified chronic kidney disease; N18.31 Chronic kidney disease, stage 3a; E03.9 Hypothyroidism, unspecified; E78.5 Hyperlipidemia, unspecified; R73.03 Prediabetes; H40.9 Unspecified glaucoma; G62.9 Polyneuropathy, unspecified; G47.33 Obstructive sleep apnea (adult) (pediatric); F41.1 Generalized anxiety disorder; Z96.652 Presence of left artificial knee joint; Z86.0100 Personal history of colon polyps, unspecified; Z90.49 Acquired absence of other specified parts of digestive tract; Z90.710 Acquired absence of both cervix and uterus; Z79.899 Other long term (current) drug therapy; W18.30XA Fall on same level, unspecified, initial encounter
CPT/HCPCS: 36415; 70450; 71045; 72125; 80053; 82948; 84484; 85025; 85610; 85730; 93005; 99285